=== PATIENT | male | born 1955 | race Caucasian/White ===

== ENCOUNTER → 2017-01-05 | Outpatient (CLI) | payer OTHER ==
[~2017-01-05] MED LIST: AMLO10CA PO; ASPI81TA21 PO; ATOR80TA PO; CEPH500C PO; METO100T7 PO; MULT-506 PO; SULF800T23 PO
[2017-01-05 17:10] LABS: ALT/SGPT 27 U/L (12-78); BLOOD UREA NITROGEN 15 mg/dl (7-18); BUN/CREATININE RATIO 16.5 (10-20); CALCIUM 8.9 mg/dl (8.5-10.1); CARBON DIOXIDE 26 mmol/L (21-32); CHLORIDE 103 mmol/L (98-107); CHOLESTEROL 137 mg/dl (0-200); CREATININE 0.92 mg/dl (0.60-1.40); GLUCOSE 78 mg/dl (70-99); SODIUM 137 mmol/L (136-145); TRIGLYCERIDES 90 mg/dl (0-150); VERY LOW DENSITY LIPOPROT CALC 18 mg/dl
[2017-01-05 17:14] LABS: ALB/GLOB RATIO 1.3 (0.9-2); ALKALINE PHOSPHATASE 64 U/L (45-117); AST/SGOT 21 U/L (15-37); CHOLESTEROL/HDL RATIO 2.4; HDL CHOLESTEROL 58 mg/dl; LDL CHOLESTEROL CALCULATED 61 mg/dl
== END | disposition home or self-care (01) ==
LOC: C.LAB 15:40
PROVIDERS: ATTEND Internal Medicine
DX: I10 Essential (primary) hypertension (principal)

== ENCOUNTER 2017-04-08 08:26 | Emergency (ER) | payer OTHER ==
[~2017-04-08] VITALS: Ht 182.9 cm; Wt 92.3 kg
[~2017-04-08 08:26] MED LIST changes: -CEPH500C PO; -SULF800T23 PO
[2017-04-08 08:32] VITALS: TEMP 36.7; Ht 182.9 cm; Wt 92.3 kg
--- NOTE | 2017-04-08 08:51 | EMERGENCY ROOM VISIT NOTE ---
ED Visit Note First contact with patient: 08:37 CHIEF COMPLAINT: Infection of the right groin HISTORY OF PRESENT ILLNESS: This 61-year-old male patient presents to the emergency department ambulatory after they noticed a hard, red, tender area to the right groin yesterday morning. It is slowly getting larger, more painful and tender. No fever, chills, or loss of appetite. There has been no drainage from the area. There was no injury to the area preceding the infection. They rate the pain as sore and 5/10. The patient was seen at [facility] yesterday and started on clindamycin. He was advised to come to the emergency department if it worsens. The patient is not diabetic. The patient has no history of subcutaneous abscesses. REVIEW OF SYSTEMS: A 10 system review of systems was completed with positives and pertinent negatives listed in the HPI. ALLERGIES: Flu vaccine MEDICATIONS: See nursing notes PMH: Hypertension, hyperlipidemia SOCIAL HISTORY: The patient lives locally. He does not smoke PHYSICAL EXAM: Vital Signs: Reviewed Nurse's notes, vital signs stable. GENERAL : This is 61-year-old male, no acute distress, non toxic in appearance, well- developed well-nourished. SKIN: There is an erythematous indurated area to the right proximal medial thigh which measures about 2 cm in diameter. It is fluctuant but there is no pointing or drainage. There is a zone of inflammation around it but no lymphangitis. Capillary refill less than 2 seconds. There is no testicular pain, tenderness, swelling, mass. There is no obvious hernia. MUSCULOSKELETAL: There is no limitation of the range of motion of the extremities. EMERGENCY DEPARTMENT COURSE: I examined the patient. After saline and Betadine cleansing and 4 mL of 1% buffered lidocaine anesthesia, the abscess was incised with a number 11 scalpel blade. A large amount of purulent material was released with more expressed by pressure. A swab was obtained for culture. The abscess cavity was further probed with a needle river driver and the deep pocket expressed. The abscess cavity was then copiously irrigated with sterile saline under pressure. The area was then packed with bacitracin soaked packing. The area was cleaned with sterile saline and dressed with bacitracin and a bulky bandage. The patient tolerated the procedure well. The patient was discharged home in stable condition. The patient will be switched to Bactrim and Keflex. He declined any pain medication. He should return in 48 hours for wound recheck and packing removal. Problem List Medical Problems: (1) Hemorrhoids Status: Chronic Surgical Problems: (1) H/O rhinoplasty Status: Resolved Current/Historical Medications Scheduled Amlodipine/Benazepril (Lotrel 10MG/20MG), 1 CAP PO DAILY Aspirin Enteric Coated (Ecotrin Or Generic), 81 MG PO DAILY Atorvastatin Calcium (Lipitor), 80 MG PO DAILY Cephalexin Monohydrate (Keflex), 500 MG PO QID Metoprolol Succinate (Toprol Xl), 100 MG PO BID Multivitamin (Multivitamin), 1 TAB PO DAILY Sulfa/Trimethoprim (Bactrim Ds 800MG/160MG), 1 TAB PO BID Allergies Coded Allergies: Flu Virus Vaccine (Verified Allergy, Mild, itch, 04/08/17) Vital Signs Date Time Temp Pulse Resp B/P Pulse Ox O2 Delivery O2 Flow Rate FiO2 04/08/17 09:41 70 12 148/88 97 04/08/17 08:32 36.7 77 18 148/98 98 Room Air Departure Information Impression Primary Impression: Abscess, groin Dispostion Home / Self-Care Condition GOOD Prescriptions Cephalexin Monohydrate (Keflex) 500 Mg Cap 500 MG PO QID for 7 Days, #28 CAP Prov: Freida Jansen PA-C 04/08/17 Sulfa/Trimethoprim (Bactrim Ds 800MG/160MG) Tab 1 TAB PO BID for 7 Days, #14 TAB Prov: Freida Jansen PA-C 04/08/17 Referrals Ishaan Hoffman M.D. (PCP) Patient Instructions ED Abscess [place], [facility] Additional Instructions Return in 48 hours for a wound recheck and packing removal. Remove the outer dressing if it becomes soiled or wet. Ibuprofen 600 mg every 6-8 hours for moderate pain Bactrim and Keflex as prescribed, until finished. Return sooner with any worsening redness, swelling, fevers.
[2017-04-08] MEDS ORDERED: XYLOCAINE 1%/SOD BICARB 20 ML VIAL INFIL ONE (09:00)
[2017-04-08] MEDS ORDERED: CEPH500C PO (09:19)
[2017-04-08] MEDS ORDERED: SULF800T23 PO (09:19)
[2017-04-08 09:41] VITALS: BP 148/88; PULSE 70; O2SAT 97
== END 2017-04-08 09:43 | disposition home or self-care (01) ==
LOC: C.EDB 08:28
DX: L02.214 Cutaneous abscess of groin (principal); I10 Essential (primary) hypertension; E78.5 Hyperlipidemia, unspecified; Z79.82 Long term (current) use of aspirin; Z79.899 Other long term (current) drug therapy

== ENCOUNTER 2017-04-10 08:12 | Emergency (ER) | payer OTHER ==
[~2017-04-10] VITALS: Ht 182.9 cm; Wt 90.4 kg
[~2017-04-10 08:12] MED LIST changes: +CEPH500C PO; +SULF800T23 PO
[2017-04-10 08:15] VITALS: PULSE 71; TEMP 36.8; O2SAT 96; Ht 182.9 cm; Wt 90.4 kg
--- NOTE | 2017-04-10 08:34 | EMERGENCY ROOM VISIT NOTE ---
ED Visit Note First contact with patient: 08:18 CHIEF COMPLAINT: Wound check HISTORY OF PRESENT ILLNESS: This 61-year-old male patient presents to the emergency department ambulatory for a recheck of incision and drainage of the right groin from 2 days ago. The patient has not had complaints. Previous care outlined has been followed without difficulty. The patient described their pain as mild, 3/10, and is located within the wound. REVIEW OF SYSTEMS: A 6 system review of systems was completed with positives and pertinent negatives listed in the HPI. ALLERGIES: Flu virus vaccine MEDICATIONS: Unchanged from previous PMH: Unchanged from previous visit. PHYSICAL EXAM: Vital Signs reviewed, see Nurse's notes. Patient is afebrile, vital signs stable. GENERAL: This is a 61-year-old male, awake, alert, well appearing, no acute distress SKIN: There is a packed, incised and drained wound to the right groin. There is minimal surrounding cellulitis which has improved. There is mild induration at the area of abscess. There is no involvement of the scrotum. NEURO: No sensory or motor deficits noted. EMERGENCY DEPARTMENT COURSE AND DECISION MAKING: I examined the patient. Previous visits, nursing notes and medication list reviewed. The packing was easily removed. There is no more purulent drainage but there is some induration and improving surrounding erythema. The patient was advised to try to keep the wound open for the next 2 days. He should continue the antibiotics until finished. He should return with any worsening redness, swelling, warmth, fevers. Problem List Medical Problems: (1) Hemorrhoids Status: Chronic Surgical Problems: (1) H/O rhinoplasty Status: Resolved Current/Historical Medications Scheduled Amlodipine/Benazepril (Lotrel 10MG/20MG), 1 CAP PO DAILY Aspirin Enteric Coated (Ecotrin Or Generic), 81 MG PO DAILY Atorvastatin Calcium (Lipitor), 80 MG PO DAILY Cephalexin Monohydrate (Keflex), 500 MG PO QID Metoprolol Succinate (Toprol Xl), 100 MG PO BID Multivitamin (Multivitamin), 1 TAB PO DAILY Sulfa/Trimethoprim (Bactrim Ds 800MG/160MG), 1 TAB PO BID Allergies Coded Allergies: Flu Virus Vaccine (Verified Allergy, Mild, itch, 04/10/17) Vital Signs Date Time Temp Pulse Resp B/P Pulse Ox O2 Delivery O2 Flow Rate FiO2 04/10/17 08:15 36.8 71 16 96 Room Air Departure Information Impression Primary Impression: Abscess packing removal Dispostion Home / Self-Care Condition GOOD Referrals Ishaan Hoffman M.D. (PCP) Patient Instructions [facility] Additional Instructions Continue the antibiotics as prescribed, until finished Try to keep the wound open for the next 48 hours Return with any fevers, worsening redness, swelling, warmth Otherwise, recheck with your family doctor next week if no significant improvement
== END 2017-04-10 08:39 | disposition home or self-care (01) ==
LOC: C.EDB 08:14
DX: Z48.00 Encounter for change or removal of nonsurgical wound dressing (principal); L02.214 Cutaneous abscess of groin; K64.9 Unspecified hemorrhoids; Z79.82 Long term (current) use of aspirin

== ENCOUNTER → 2017-10-02 | Outpatient (CLI) | payer OTHER ==
[~2017-10-02] MED LIST changes: -CEPH500C PO; -SULF800T23 PO
--- NOTE | 2017-10-02 10:21 | DIAGNOSTIC IMAGING REPORT ---
ABDOMINAL AORTIC ULTRASOUND CLINICAL HISTORY: Z98.890 History of AAA (abdominal aortic aneurysm) [id number] COMPARISON STUDY: Abdomen and pelvis CT 04/19/2012. FINDINGS: The proximal aorta measures 3.5 x 3.4 cm, mid aorta measures 3.1 x 2.9 cm, distal aorta measures 2.2 x 2.2 cm. The right common iliac artery measures 1.6 cm and the left common iliac artery measures 1.9 x 1.8 cm. IMPRESSION: Mild aneurysmal dilatation of the proximal to mid abdominal aorta and left common iliac artery as described above. Electronically signed by: Russ Delgado M.D. 10/02/2017 10:20 AM Dictated Date/Time: 10/02/2017 10:18 AM
== END | disposition home or self-care (01) ==
LOC: C.ULTR 09:09
PROVIDERS: ATTEND Internal Medicine
DX: Z98.890 Other specified postprocedural states (principal)

== ENCOUNTER → 2018-03-26 | Outpatient (CLI) | payer OTHER ==
[~2018-03-26] MED LIST changes: +ASPI-319 PO; -ASPI81TA21 PO
[2018-03-26 09:41] LABS: BASO % 0.5 %; BASO ABS # 0.06 K/uL (0-0.2); EOS % 1.3 %; EOS ABS # 0.15 K/uL (0-0.5); HEMATOCRIT 43.9 % (42-52); HEMOGLOBIN 14.6 g/dL (14.0-18.0); IG# 0.13 K/uL (0.00-0.02); LYMPH % 12.1 %; LYMPH ABS # 1.39 K/uL (1.2-3.4); MEAN CELL VOLUME 95.6 fL (80-100); MEAN CORPUSCULAR HEMOGLOBIN 31.8 pg (25-34); MEAN CORPUSCULAR HGB CONC 33.3 g/dl (32-36); MEAN PLATELET VOLUME 10.2 fL (7.4-10.4); MONO % 10.9 %; MONO ABS # 1.25 K/uL (0.11-0.59); NEUT % 74.1 %; PLATELET COUNT 361 K/uL (130-400); RED CELL DISTRIBUTION WIDTH CV 14.7 % (11.5-14.5); RED CELL DISTRIBUTION WIDTH SD 51.3 fL (36.4-46.3); WHITE BLOOD COUNT 11.48 K/uL (4.8-10.8)
[2018-03-26 10:03] LABS: ALBUMIN 3.7 gm/dl (3.4-5.0); ALT/SGPT 38 U/L (12-78); AST/SGOT 24 U/L (15-37); BLOOD UREA NITROGEN 14 mg/dl (7-18); CALCIUM 8.7 mg/dl (8.5-10.1); CARBON DIOXIDE 26 mmol/L (21-32); CREATININE 0.89 mg/dl (0.60-1.40); GLUCOSE 107 mg/dl (70-99); POTASSIUM 4.2 mmol/L (3.5-5.1); SODIUM 138 mmol/L (136-145)
[2018-03-26 10:11] LABS: ALKALINE PHOSPHATASE 75 U/L (45-117); CHOLESTEROL 147 mg/dl (0-200); LDL CHOLESTEROL CALCULATED 67 mg/dl; TOTAL PROTEIN 7.5 gm/dl (6.4-8.2)
== END | disposition home or self-care (01) ==
LOC: C.LAB 07:17
PROVIDERS: ATTEND Internal Medicine
DX: I49.5 Sick sinus syndrome (principal); I10 Essential (primary) hypertension; E78.5 Hyperlipidemia, unspecified; Z86.79 Personal history of other diseases of the circulatory system; I25.10 Atherosclerotic heart disease of native coronary artery without angina pectoris; Z95.0 Presence of cardiac pacemaker

== ENCOUNTER 2025-01-03 09:27 | Observation (INO) ==
--- NOTE | 2025-01-03 10:08 | Emergency Department Note ---
History of Present Illness General Chief Complaint: Shortness of Breath/Dyspnea Stated Complaint: SOB/TROUBLE BREATHING Time Seen by Provider: 01/03/25 09:50 History of Present Illness Provider Complaint: shortness of breath Onset (ago): day(s) (2) Consistency/Duration: + progressively worsening Relieved By: + nothing Exacerbated By: + coughing Associated symptoms: + cough and + sputum production; no chest pain, no fever, no hemoptysis or no chest congestion Home Medications Medication Instructions Recorded Confirmed Type metoprolol succinate 100 mg 100 mg PO BID #180 tabs 12/29/23 01/03/25 Rx tablet,extended release 24 hr nitroglycerin 0.4 mg sublingual 0.4 mg sublingual UD PRN Chest 06/26/24 01/03/25 Rx tablet (Nitrostat) Pain #25 tabs amlodipine 10 mg-benazepril 40 mg 1 cap PO QAM 01/03/25 01/03/25 History capsule aspirin 81 mg tablet,delayed 81 mg PO HS 01/03/25 01/03/25 History release Allergies Allergy/AdvReac Type Severity Reaction Status Date / Time No Known Allergies Allergy Verified 01/03/25 08:53 Past Med/Surg History Problem List (Updated 01/03/25 @ 14:54 by Hammad Kiran MD) Post-viral reactive airway disease Alcohol use disorder Primary myelofibrosis Hyponatremia Vitamin D deficiency Hypertension Proteinuria Parakeratosis (Chronic) Left renal artery stenosis (Acute) Former smoker (Acute) 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 Hyperlipidemia (Chronic) HTN (hypertension) (Chronic) GERD (gastroesophageal reflux disease) (Acute) Medical History Rectal bleeding Bailey esophagus Hypertension Surgical History History of cataract surgery LEFT History of colonoscopy History of esophagogastroduodenoscopy (EGD) History of AAA (abdominal aortic aneurysm) repair History of surgery LEFT HAND REATTACHED AFTER TRAUMA (30+YEARS AGO). PT HAS SOME NUMBNESS AND TINGLING BUT HAS FULL FUNCTION. History of surgery REPAIR OF DEVIATED SEPTUM History of herniorrhaphy MULTIPLE, INCLUDING UMBILICAL History of cardiac cath ANGIOPLASTY X2, STENT PLACEMENT (20 YEARS AGO) Family History Father Diabetes Myocardial infarction Hypertension Mother Diabetes Hypertension Gall bladder disease Other No family history of adverse response to anesthesia Denies family history of Ovarian cancer Prostate cancer Breast cancer Lung cancer Colorectal cancer Social History Smoking Status: Never smoker Tobacco Type: Cigarettes Age Started Using Tobacco: 16; Age Quit Using Tobacco: 46; packs per day: 1; Cigarettes Per Day: quit 15 years; Second Hand Exposure: No; Do You Dip or Chew Tobacco: No; Hx Alcohol Use: Yes (4 mixed drinks daily ) Alcohol type: beer and hard liquor Hx Substance Use: Yes (smokes marijuana intermittently) Last Used Substance Other:: SMOKES MARIJUANA INTERMITTENLTY Preferred Language: Russian Communication Ability: Effective Visual Impairment: Limited Hearing Ability: Normal Information Technology Analyst Required: No Beliefs That Will Affect Care: None marital status: Current Living Situation: Spouse current occupational status: retired Feels Safe at Home: Yes Childhood Exposure to Second-Hand Smoke: No caffeine: Yes Dental Care, Regularly: No Physical Activity Frequency: Does not Exercise Seatbelt Use: always Sunscreen Use: No Assistive Devices: Denture - Upper and Glasses Physical Exam 2 Vital Signs: Vital Signs - 24 hr 01/03/25 09:41 01/03/25 10:20 01/03/25 10:24 Temperature 36.9 C Temperature Source Temporal Artery Sc an Pulse Rate 99 H 92 H Pulse Rate [Apical ] Respiratory Rate 18 19 Respiratory Effort / Characteristics Non-Labored Respiratory Depth Normal Respiratory Patter n Regular Blood Pressure 146/100 H 124/79 Blood Pressure [Le ft Arm] Blood Pressure Erica n 115 103 Blood Pressure Erica n [Left Arm] Blood Pressure Pos ition [Left Arm] Pulse Oximetry 95 93 Oxygen Delivery Me thod Room Air Sepsis Recent Feve r Within 48 Hours No Sepsis New/Unexpla ined Change in Men zeferino Status N/A Sepsis Action Take n by Nursing No Action Required Pulse Oximetry Pos t Tiitration 01/03/25 10:25 01/03/25 10:27 01/03/25 10:27 Temperature Temperature Source Pulse Rate 88 Pulse Rate [Apical ] 90 Respiratory Rate 18 Respiratory Effort / Characteristics Respiratory Depth Respiratory Patter n Blood Pressure Blood Pressure [Le ft Arm] 124/79 Blood Pressure Erica n Blood Pressure Erica n [Left Arm] 94 Blood Pressure Pos ition [Left Arm] Pulse Oximetry 94 Oxygen Delivery Me thod Room Air Room Air Sepsis Recent Feve r Within 48 Hours Sepsis New/Unexpla ined Change in Men zeferino Status Sepsis Action Take n by Nursing Pulse Oximetry Pos t Tiitration 94 01/03/25 10:27 01/03/25 10:36 01/03/25 12:00 Temperature Temperature Source Pulse Rate 91 H Pulse Rate [Apical ] 87 Respiratory Rate 16 24 Respiratory Effort / Characteristics Non-Labored Sponta neous Respiratory Depth Normal Respiratory Patter n Regular Blood Pressure Blood Pressure [Le ft Arm] 133/94 Blood Pressure Erica n Blood Pressure Erica n [Left Arm] 107 Blood Pressure Pos ition [Left Arm] Sitting Pulse Oximetry 94 95 96 Oxygen Delivery Me thod Room Air Room Air Sepsis Recent Feve r Within 48 Hours Sepsis New/Unexpla ined Change in Men zeferino Status Sepsis Action Take n by Nursing Pulse Oximetry Pos t Tiitration 01/03/25 14:00 01/03/25 14:38 Temperature Temperature Source Pulse Rate 96 H Pulse Rate [Apical ] 90 Respiratory Rate 19 Respiratory Effort / Characteristics Non-Labored Sponta neous Respiratory Depth Normal Respiratory Patter n Regular Blood Pressure Blood Pressure [Le ft Arm] 128/88 Blood Pressure Erica n Blood Pressure Erica n [Left Arm] 101 Blood Pressure Pos ition [Left Arm] Semi-fowlers Pulse Oximetry 94 Oxygen Delivery Me thod Room Air Sepsis Recent Feve r Within 48 Hours Sepsis New/Unexpla ined Change in Men zefernio Status Sepsis Action Take n by Nursing Pulse Oximetry Pos t Tiitration Physical Exam: Physical Exam GENERAL: oriented to person, place, and time. appears well-developed and well- nourished. HENT: Exam performed. - Head: Normocephalic and atraumatic. EYES: Conjunctivae and EOM are normal. Right eye exhibits no discharge. Left eye exhibits no discharge. No scleral icterus. NECK: Normal range of motion. Neck supple. No JVD present. CV: Normal rate, regular rhythm, normal heart sounds and intact distal pulses. There is no peripheral edema. Palpable radial pulses bue. PULM/CHEST: Scant expiratory wheezes bilaterally. ABD: The abdomen is soft. There is no tenderness. NEURO: Motor and sensation grossly intact. SKIN: Skin is warm and dry. He is not diaphoretic. PSYCH: normal mood and affect. Behavior is normal. Judgment and thought content normal. Course Course 09: The patient was evaluated in room B12. A complete history and physical exam was performed Cardiac monitoring: An order was placed for continuous cardiac monitoring. The monitor shows a rate of 100 with sinus rhythm interpreted by oh 1120: Patient's D-dimer is elevated. CT of the chest ordered for the patient. 1230: Vital signs stable.Labs show white blood cell count of 7.1 hemoglobin 11.5 VBG unremarkable. High sensitive troponin 39.[address] of the chest negative for PE and pneumonia but does show mild CHF. Patient be treated with Lasix and admitted to the hospitalist team. Administered Medications Discontinued Medications Albuterol (Albut/Ipratrop 3mg/0.5mg Neb 3 Ml Vial) 3 ml NEB NOW STA; Protocol Stop: 01/03/25 09:58 Last Admin: 01/03/25 10:25 Dose: 3 ml Documented By: ML Ioversol (Optiray 320 125ml) 112 ml IV ONCE ONE Stop: 01/03/25 11:29 Last Admin: 01/03/25 11:28 Dose: 112 ml Documented By: HILLARY Medical Decision Making Laboratory Data Attestation: I reviewed the patient's lab results. 01/03/25 10:20 01/03/25 10:20 Lab Results 01/03/25 01/03/25 01/03/25 Range/Units 10:20 10:34 13:06 WBC 7.10 (4.8-10.8) K/ul RBC 3.53 L (4.70-6.10) M/uL Hgb 11.5 L (14.0-18.0) g/dl Hct 35.5 L (42.0-52.0) % MCV 100.6 H (80.0-100.0) fL MCH 32.6 (25.0-34.0) pg MCHC 32.4 (32.0-36.0) g/dL RDW Std Deviation 73.5 H (36.4-46.3) fL RDW Coeff of Dominique 20.5 H (11.5-14.5) % Plt Count 142 (130-400) K/uL MPV 11.3 (9.4-12.4) fL Neutrophils % (Manual) 71 % Lymphocytes % (Manual) 8 % Monocytes % (Manual) 9 % Eosinophils % (Manual) 3 % Basophils % (Manual) 2 % Metamyelocytes % (Man) 1 % Myelocytes % (Man) 3 % Promyelocytes % (Man) 1 % Blast Cells % (Manual) 2 % Neutrophils # (Manual) 5.04 (1.40-6.50) K/uL Total Absolute Neuts 5.04 (1.4-6.5) K/uL Lymphocytes # (Manual) 0.57 L (1.2-3.4) K/uL Total Abs Lymphocytes 0.57 L (1.2-3.4) K/uL Monocytes # (Manual) 0.64 H (0.11-0.59) K/uL Eosinophils # (Manual) 0.21 (0-0.50) K/uL Basophils # (Manual) 0.14 (0-0.2) K/uL Metamyelocytes # (Man) 0.07 H (0-0) K/uL Myelocytes # (Manual) 0.21 H (0-0) K/uL Promyelocytes # (Man) 0.07 H (0-0) K/uL Blast Cells # (Man) 0.14 H (0-0) K/uL PT 11.1 (9.0-12.0) Seconds INR 1.0 (0.9-1.1) APTT 31 (21-31) Seconds PTT Ratio 1.2 D-Dimer 680 H* (0-500) ug/L FEU VBG pH 7.39 (7.36-7.41) VBG pCO2 43 (38-50) mmHg VBG pO2 28 mmHg VBG HCO3 26 mmol/L VBG O2 Saturation < 60.0 % VBG Base Excess 0.8 mEq/L Sodium 134 L (136-145) mmol/L Potassium 4.1 (3.5-5.1) mmol/L Chloride 98 (98-107) mmol/L Carbon Dioxide 28 (21-32) mmol/L Anion Gap 8 (3-11) BUN 13 (6-23) mg/dl Creatinine 0.75 (0.6-1.4) mg/dl Est Cr Clr Drug Dosing 97.6 ml/min eGFR 97.08 BUN/Creatinine Ratio 17.3 (10-20) Glucose 106 H (70-99(Fasting)) mg/dl Calcium 9.1 (8.6-10.3) mg/dl Troponin I High Sens 39.7 H 44.6 H (0-20) pg/ml B-Natriuretic Peptide 724 H (0-100) pg/ml Lipase 25 (11-82) U/L SARS-CoV-2 (PCR) NEGATIVE (Negative) Influenza Type A (PCR) Negative (Neg) Influenza Type B (PCR) Negative (Neg) RSV (RT-PCR) Negative (Neg) Imaging Data Attestation: I personally reviewed and interpreted this imaging study as follows: My Impression: Chest x-ray negative. Airway clear. No pneumothorax. No consolidation. No cardiomegaly or cephalization.. No free air under the diaphragm. No fractures of the skeletal structures. Radiologist's Impression: Chest X-Ray 01/03/25 09:58 XR chest 1V portable CLINICAL HISTORY: Chest pain, nonspecific. Cough. COMPARISON STUDY: Chest radiograph December 25, 2024. FINDINGS: Left subclavian pacer is in place. Cardiomegaly is unchanged. There is no evidence for pulmonary edema or pneumonia. There is no pneumothorax or pleural effusion. IMPRESSION: No acute cardiopulmonary findings. No change in appearance of the chest. ACT 112: Negative or not required by law. Electronically signed by: Kam Barry M.D. 01/03/2025 10:32 AM Chest CTA 01/03/25 11:20 CT angio chest PE protocol CT DOSE: 798.95 mGy.cm HISTORY: Shortness of breath with a recent flu exposure. Denies chest pain. History of leukemia awaiting chemotherapy TECHNIQUE: Multiple CTA images of the chest were obtained after the intravenous administration of 112 ml Optiray. Coronal and sagittal MIPS were obtained from the axial data set and were submitted for review. All measurements were obtained according to NASCET criteria. A dose lowering technique was utilized adhering to the principles of ALARA. COMPARISON STUDY: Portable chest same date FINDINGS: There is no evidence of acute pulmonary embolism. The heart is enlarged. There are pronounced coronary artery calcifications. There is some mild pulmonary vascular congestion with some dependent pulmonary edema in the upper and lower lobes raising the question of mild CHF. The aorta demonstrates atherosclerotic plaque and ectasia. There is no significant adenopathy. There is no pneumothorax. There is no pleural effusion. In the upper abdomen, there are hepatic and renal cysts. The spleen is enlarged. There are small lipid rich adrenal adenomas bilaterally. IMPRESSION: No evidence of pulmonary embolism. Suspect mild CHF. No evidence of pneumonia. Hepatic and renal cysts. Splenomegaly. ACT 112: Negative or not required by law. The above report was generated using voice recognition software. It may contain grammatical, syntax or spelling errors. Electronically signed by: Sharon Raphael M.D. 01/03/2025 12:13 PM ECG Data Attestation: I personally reviewed and interpreted this ECG as follows: Interpretation: Sinus arrhythmia with a rate of 81. [place] 110 QRS [address] elevation or ST depression. No delta wave. right bundle branch block present. [facility] Narrative 0950: The patient was evaluated in room B12. A complete history and physical exam was performed Cardiac monitoring: An order was placed for continuous cardiac monitoring. The monitor shows a rate of 100 with sinus rhythm interpreted by me 1120: Patient's D-dimer is elevated. CT of the chest ordered for the patient. 1230: Vital signs stable.Labs show white blood cell count of 7.1 hemoglobin 11.5 VBG unremarkable. High sensitive troponin 39.[address] of the chest negative for PE and pneumonia but does show mild CHF. Patient be treated with Lasix and admitted to the hospitalist team. Impression & Plan Congestive heart failure Discharge Plan Visit Data Chief Complaint: Shortness of Breath/Dyspnea Stated Complaint: SOB/TROUBLE BREATHING ED Provider: Nirmal Parkinson Discharge Problem: Congestive heart failure Patient Disposition: Admitted As Inpatient Forms Stand Alone Forms: My [employer] Prescriptions Prescriptions: No Action metoprolol succinate 100 mg tablet extended release 24 hr 100 mg PO BID Qty: 180 3RF nitroglycerin [Nitrostat] 0.4 mg tablet, sublingual 0.4 mg Sublingual UD PRN (Reason: Chest Pain) Qty: 25 3RF aspirin 81 mg Tablet,Delayed Release (Dr/Ec) 81 mg PO HS amlodipine-benazepril 10-40 mg capsule 1 cap PO QAM Referrals Referrals: Sarika Lin DO [Primary Care Provider] -
[2025-01-03] MEDS: ALBUT/IPRATROP 3MG/0.5MG NEB 3 ML VIAL NEB STA (10:25)
[2025-01-03 10:33] LABS: Base Excess VBG 0.8 mEq/L; HCO3 VBG 26 mmol/L; Oxygen Saturation VBG < 60.0 %; PCO2 VBG 43 mmHg (38-50); PO2 VBG 28 mmHg; pH VBG 7.39 (7.36-7.41)
--- NOTE | 2025-01-03 10:34 | XRay Report ---
XR chest 1V portable CLINICAL HISTORY: Chest pain, nonspecific. Cough. COMPARISON STUDY: Chest radiograph December 25, 2024. FINDINGS: Left subclavian pacer is in place. Cardiomegaly is unchanged. There is no evidence for pulm onary edema or pneumonia. There is no pneumothorax or pleural effusion. IMPRESSION: No acute cardiopulmonary findings. No change in appearance of the chest. ACT 112: Negative or not required by law. Electronically signed by: Kam Barry M.D. 01/03/2025 10:32 AM
[2025-01-03 11:05] LABS: BUN Creatinine Ratio 17.3 (10-20); Calcium 9.1 mg/dl (8.6-10.3); Creatinine Clr Calc Pharmacy 97.6 ml/min; Potassium 4.1 mmol/L (3.5-5.1)
[2025-01-03 11:06] LABS: Hematocrit (blood only) 35.5 % (42.0-52.0); Hemoglobin 11.5 g/dl (14.0-18.0); Mean Corpuscular Hemoglobin 32.6 pg (25.0-34.0); Mean Corpuscular Hgb Conc 32.4 g/dL (32.0-36.0); Mean Corpuscular Volume 100.6 fL (80.0-100.0); Mean Platelet Volume 11.3 fL (9.4-12.4); Platelet Count 142 K/uL (130-400); RDW Coefficient of Variation 20.5 % (11.5-14.5); RDW Standard Deviation 73.5 fL (36.4-46.3); Red Blood Count 3.53 M/uL (4.70-6.10)
[2025-01-03 11:11] LABS: Troponin I High Sensitivity 39.7 pg/ml (0-20)
[2025-01-03 11:16] LABS: Partial Thromboplastin Ratio 1.2; Partial Thromboplastin Time 31 Seconds (21-31); Prothrombin Time 11.1 Seconds (9.0-12.0)
[2025-01-03 11:20] LABS: D Dimer 680 ug/L FEU (0-500)
[2025-01-03 11:27] LABS: Influenza A virus by PCR Negative (Neg); Influenza B virus by PCR Negative (Neg); RSV by PCR Negative (Neg); SARS CoV2 RNA(COVID-19) Ceph NEGATIVE (Negative)
[2025-01-03] MEDS: OPTIRAY 320 125ml IV ONE (11:28)
[2025-01-03 12:11] LABS: ALC (manual) 0.57 K/uL (1.2-3.4); ANC (manual) 5.04 K/uL (1.4-6.5); Basophils # (manual) 0.14 K/uL (0-0.2); Basophils % (manual) 2 %; Blast # (manual) 0.14 K/uL (0-0); Blast Cells % (manual) 2 %; Eosinophils # (manual) 0.21 K/uL (0-0.50); Eosinophils % (manual) 3 %; Lymphocytes # (manual) 0.57 K/uL (1.2-3.4); Lymphocytes % (manual) 8 %; Metamyelocytes # (manual) 0.07 K/uL (0-0); Metamyelocytes % (manual) 1 %; Monocytes # (manual) 0.64 K/uL (0.11-0.59); Monocytes % (manual) 9 %; Myelocytes # (manual) 0.21 K/uL (0-0); Myelocytes % (manual) 3 %; Neutrophils # (manual) 5.04 K/uL (1.40-6.50); Neutrophils % (manual) 71 %; Promyelocytes # (manual) 0.07 K/uL (0-0); Promyelocytes % (manual) 1 %
--- NOTE | 2025-01-03 12:15 | CT Scan Report ---
CT angio chest PE protocol CT DOSE: 798.95 mGy.cm HISTORY: Shortness of breath with a recent flu exposure. Denies chest pain. History of leukemia await ing chemotherapy TECHNIQUE: Multiple CTA images of the chest were obtained after the intravenous administration of 112 ml Optiray. Coronal and sagittal MIPS were obtained from the axial data set and were submitted for review. All measurements were obtained according to NASCET criteria. A dose lowering technique was u tilized adhering to the principles of ALARA. COMPARISON STUDY: Portable chest same date FINDINGS: There is no evidence of acute pulmonary embolism. The heart is enlarged. There are pronounc ed coronary artery calcifications. There is some mild pulmonary vascular congestion with some depende nt pulmonary edema in the upper and lower lobes raising the question of mild CHF. The aorta demonstrates atherosclerotic plaque and ectasia. There is no significant adenopathy. There is no pneumothorax. There is no pleural effusion. In the upper abdomen, there are hepatic and renal cysts. The spleen is enlarged. There are small lipi d rich adrenal adenomas bilaterally. IMPRESSION: No evidence of pulmonary embolism. Suspect mild CHF. No evidence of pneumonia. Hepatic and renal cysts. Splenomegaly. ACT 112: Negative or not required by law. The above report was generated using voice recognition software. It may contain grammatical, syntax o r spelling errors. Electronically signed by: Sharon Raphael M.D. 01/03/2025 12:13 PM
--- NOTE | 2025-01-03 12:46 | Electrocardiogram Report ---
Test Reason : Blood Pressure : */* mmHG Vent. Rate : 81 BPM Atrial Rate : 81 BPM P-R Int : 110 ms QRS Dur : 120 ms QT Int : 456 ms P-R-T Axes : -14 -71 2 degrees QTcB Int : 529 ms Sinus rhythm with short VT with Premature supraventricular complexes Left axis deviation Right bundle branch block Minimal voltage criteria for LVH, may be normal variant Poor R wave progression, consider anterior PA vs. lead placement vs. LVH T wave abnormality, consider lateral ischemia Abnormal ECG When compared with ECG of 26-Jan-2016 13:56, Premature supraventricular complexes are now Present VT interval has decreased Right bundle branch block is now Present Borderline criteria for Anterior infarct are now Present Confirmed by Sourav Sy ([id number]) on 01/03/2025 12:45:47 PM Referred By: Confirmed By: Sourav Sy
--- NOTE | 2025-01-03 14:55 | History & Physical Report ---
Date of Service January 03, 2025 Assessment & Plan (1) Post-viral reactive airway disease: Plan: Suspect cause of his acute symptoms rather than congestive heart failure given improvement with DuoNeb in the emergency room. Continue DuoNebs q.6 hourly Consider outpatient pulmonary function testing (2) Acute heart failure with mildly reduced ejection fraction (HFmrEF, 41-49%): Plan: Pulmonary edema on CT, estimated mildly reduced ejection fraction on POCUS Known history of coronary artery disease (see below) I have a low suspicion this is causing his symptoms given significant improvement with DuoNebs TTE - consult cardiology if confirmed to be less than 50% Lasix 20 mg IV (significant diuresis in the emergency room with this), continue 20 mg p.o. starting tomorrow Already taking metoprolol succinate and Benazepril Trace urine protein from December 25, no need to repeat this (3) Apneic episode: Plan: Possibly exacerbated by alcohol use, Pulse oximetry arranged overnight but he still should get sleep study as arranged through his PCP. Avoid sedating medications and alcohol (4) CAD (coronary artery disease): Plan: Per previous cardiology notes he had a cardiac catheterization 1998 revealing a 100% RCA occlusion with well-developed collaterals and tight stenosis of the obtuse marginal branch of the left circumflex underwent successful PCI. Repeat catheterization 2005 revealed a patent stent with no new abnormalities. Continue aspirin, metoprolol, Benazepril Per prior cardiology notes he was previously on atorvastatin, I am not clear why this is no longer on his medication list but has not been picked up in the last year (5) Alcohol use disorder: Plan: Unlikely to get through alcohol withdrawal with his last drink greater than 48 hours ago. AWSS to be fall needs to inform provider if greater than 5 to determine if the patient needs benzodiazepines but given concern for nocturnal apneic episodes we will try to avoid this if at all possible. Plan VTE prophylaxis - low risk, reconsider chemical prophylaxis if he stays longer than tomorrow Diet - heart healthy, low-sodium Disposition - observation to med/tele Admission and Anticipated Discharge Date Admission Date: January 03, 2025 History of Present Illness Chief Complaint: Shortness of breath Primary Care Provider: Sarika Lin DO Edradha Rutledge is a 69-year-old male who presents to the ER on advice of his twx operator due to shortness of breath. He reports chronic shortness of breath which she puts down to his primary myelofibrosis. This has been worse the last 2 days with associated nasal congestion and nonproductive cough. He feels he picked up a viral infection. Significant improvement with DuoNeb given in the emergency room. No known diagnosis of COPD or asthma. No chest pain. He is also concerned about sleep apnea and testing has been arranged by his PCP. He reports waking up during the nighttime with a feeling of stopping breathing. Allergies Allergy/AdvReac Type Severity Reaction Status Date / Time No Known Allergies Allergy Verified 01/03/25 08:53 Home Medications Medication Instructions Recorded Confirmed Type metoprolol succinate 100 mg 100 mg PO BID #180 tabs 12/29/23 01/03/25 Rx tablet,extended release 24 hr nitroglycerin 0.4 mg sublingual 0.4 mg sublingual UD PRN Chest 06/26/24 01/03/25 Rx tablet (Nitrostat) Pain #25 tabs amlodipine 10 mg-benazepril 40 mg 1 cap PO QAM 01/03/25 01/03/25 History capsule aspirin 81 mg tablet,delayed 81 mg PO HS 01/03/25 01/03/25 History release Past Med/Surg History Problem List (Updated 01/03/25 @ 23:46 by Hammad Kiran MD) Apneic episode Acute heart failure with mildly reduced ejection fraction (HFmrEF, 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 Alcohol use disorder Primary myelofibrosis Hyponatremia Vitamin D deficiency Hypertension Proteinuria Parakeratosis (Chronic) Left renal artery stenosis (Acute) Former smoker (Acute) 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 (Acute) Pacemaker Incisional hernia Sick sinus syndrome (Chronic 2005) Meditronic Dual chamber pacemaker placed 01/02/2006 Abdominal aortic aneurysm S/P REPAIR 12 YEARS PRIOR, [facility] CAD (coronary artery disease) (Chronic 1998) Cardiac Catheterization revealed 100% RCA occlusion with well developed collaterals with stenosis of obtuse marginal and left circumflex with stent placement. Hyperlipidemia (Chronic) HTN (hypertension) (Chronic) GERD (gastroesophageal reflux disease) (Acute) Medical History Rectal bleeding Bailey esophagus Hypertension Surgical History History of cataract surgery LEFT History of colonoscopy History of esophagogastroduodenoscopy (EGD) History of AAA (abdominal aortic aneurysm) repair History of surgery LEFT HAND REATTACHED AFTER TRAUMA (30+YEARS AGO). PT HAS SOME NUMBNESS AND TINGLING BUT HAS FULL FUNCTION. History of surgery REPAIR OF DEVIATED SEPTUM History of herniorrhaphy MULTIPLE, INCLUDING UMBILICAL History of cardiac cath ANGIOPLASTY X2, STENT PLACEMENT (20 YEARS AGO) Family History Father Diabetes Myocardial infarction Hypertension Mother Diabetes Hypertension Gall bladder disease Other No family history of adverse response to anesthesia Denies family history of Ovarian cancer Prostate cancer Breast cancer Lung cancer Colorectal cancer Social History Smoking Status: Never smoker Tobacco Type: Cigarettes Age Started Using Tobacco: 16; Age Quit Using Tobacco: 46; packs per day: 1; Cigarettes Per Day: quit 15 years; Second Hand Exposure: No; Do You Dip or Chew Tobacco: No; Hx Alcohol Use: Yes Alcohol type: hard liquor Hx Substance Use: Yes Last Used Substance: Days (ago) Last Used Substance Other:: 5 days ago Preferred Language: Uzbek Communication Ability: Effective Visual Impairment: Limited Hearing Ability: Normal Sheet Manager Required: No Beliefs That Will Affect Care: None marital status: Current Living Situation: Spouse current occupational status: retired Feels Safe at Home: Yes Safety Concerns: Feels Safe At This Time Childhood Exposure to Second-Hand Smoke: No caffeine: Yes Dental Care, Regularly: No Physical Activity Frequency: Does not Exercise Seatbelt Use: always Sunscreen Use: No Assistive Devices: None Review of Systems Review of Systems: All systems reviewed & are unremarkable except as noted in HPI & below Physical Exam Constitutional: WD/WN, vitals as above ENMT: external ear and nose normal, oropharynx normal Respiratory: normal respiratory effort; no respiratory distress Auscultation: + wheezes (Mild expiratory); breath sounds present, no diminished lung sounds, no crackles, no rales and no rhonchi Cardiovascular: Rate/Rhythm: regular rate and regular rhythm Heart Sounds: no murmur Extremities: normal capillary refill and + pedal edema; no calf tenderness Gastrointestinal (Abdomen): normal bowel sounds, soft, nontender, no hepatosplenomegaly Skin: no rashes, warm and dry Neurologic: moves all extremities and awake; not confused Psychiatric: A+Ox3, euthymic affect Results & Data Results & Data Vital Signs (Past 12 Hours) Vital Signs Temp Pulse Pulse Resp BP BP Pulse Ox 01/03/25 14:38 96 H 01/03/25 14:00 90 19 128/88 94 01/03/25 12:00 87 24 133/94 96 01/03/25 10:36 91 H 16 95 01/03/25 10:27 94 01/03/25 10:27 90 18 124/79 94 01/03/25 10:27 01/03/25 10:25 88 01/03/25 10:24 92 H 19 93 01/03/25 10:20 124/79 01/03/25 09:41 36.9 C 99 H 18 146/100 H 95 O2 Del Method 01/03/25 14:38 01/03/25 14:00 Room Air 01/03/25 12:00 Room Air 01/03/25 10:36 01/03/25 10:27 Room Air 01/03/25 10:27 Room Air 01/03/25 10:27 Room Air 01/03/25 10:25 01/03/25 10:24 01/03/25 10:20 01/03/25 09:41 Room Air Laboratory Results Abnormal lab results 01/03/25 01/03/25 Range/Units 10:20 13:06 RBC 3.53 L (4.70-6.10) M/uL Hgb 11.5 L (14.0-18.0) g/dl Hct 35.5 L (42.0-52.0) % MCV 100.6 H (80.0-100.0) fL RDW Std Deviation 73.5 H (36.4-46.3) fL RDW Coeff of Dominique 20.5 H (11.5-14.5) % Lymphocytes # (Manual) 0.57 L (1.2-3.4) K/uL Total Abs Lymphocytes 0.57 L (1.2-3.4) K/uL Monocytes # (Manual) 0.64 H (0.11-0.59) K/uL Metamyelocytes # (Man) 0.07 H (0-0) K/uL Myelocytes # (Manual) 0.21 H (0-0) K/uL Promyelocytes # (Man) 0.07 H (0-0) K/uL Blast Cells # (Man) 0.14 H (0-0) K/uL D-Dimer 680 H* (0-500) ug/L FEU Sodium 134 L (136-145) mmol/L Glucose 106 H (70-99(Fasting)) mg/dl Troponin I High Sens 39.7 H 44.6 H (0-20) pg/ml B-Natriuretic Peptide 724 H (0-100) pg/ml Diagnostic Findings XR chest 1V portable CLINICAL HISTORY: Chest pain, nonspecific. Cough. COMPARISON STUDY: Chest radiograph December 25, 2024. FINDINGS: Left subclavian pacer is in place. Cardiomegaly is unchanged. There is no evidence for pulmonary edema or pneumonia. There is no pneumothorax or pleural effusion. IMPRESSION: No acute cardiopulmonary findings. No change in appearance of the chest. CT angio chest PE protocol CT DOSE: 798.95 mGy.cm HISTORY: Shortness of breath with a recent flu exposure. Denies chest pain. History of leukemia awaiting chemotherapy TECHNIQUE: Multiple CTA images of the chest were obtained after the intravenous administration of 112 ml Optiray. Coronal and sagittal MIPS were obtained from the axial data set and were submitted for review. All measurements were obtained according to NASCET criteria. A dose lowering technique was utilized adhering to the principles of ALARA. COMPARISON STUDY: Portable chest same date FINDINGS: There is no evidence of acute pulmonary embolism. The heart is enlarged. There are pronounced coronary artery calcifications. There is some mild pulmonary vascular congestion with some dependent pulmonary edema in the upper and lower lobes raising the question of mild CHF. The aorta demonstrates atherosclerotic plaque and ectasia. There is no significant adenopathy. There is no pneumothorax. There is no pleural effusion. In the upper abdomen, there are hepatic and renal cysts. The spleen is enlarged. There are small lipid rich adrenal adenomas bilaterally. IMPRESSION: No evidence of pulmonary embolism. Suspect mild CHF. No evidence of pneumonia. Hepatic and renal cysts. Splenomegaly. Medications Administered ER medications given: DuoNeb 3 mL neb ECG Rate (beats per minute): 81 Rhythm: normal sinus and other (Premature supraventricular complexes) Findings: + RBBB Comparison ECG Date: from (January 26, 2016) Change: the following changes noted (Premature supraventricular complexes now present) Code Status & VTE Plan Code Status Full VTE Prophylaxis Plan VTE Prophylaxis will be ordered: Yes PG Care Time/CCT Total # of Minutes Spent Total Time Spent with Patient: Total time spent is greater than 50% in coordination of care (as documented) at patient's floor/unit and/or counseling patient: Coding Level of Care Code 53118 INT INP/OBS CARE 3/75MIN Diagnoses Post-viral reactive airway disease J45.998 Acute heart failure with mildly reduced ejection fraction (HFmrEF, 41-49%) I50.21 Apneic episode R06.81 Coronary artery disease involving [place] coronary artery of [place] heart without angina pectoris I25.10 Coronary Disease-Associated Artery/Lesion type: [place] artery [place] vs. transplanted heart: [place] heart Associated angina: without angina Alcohol use disorder F10.90 (4) CAD (coronary artery disease) Coronary Disease-Associated Artery/Lesion type: [place] artery [place] vs. transplanted heart: [place] heart Associated angina: without angina Qualified Code(s): I25.10 - Atherosclerotic heart disease of [place] coronary artery without angina pectoris
[2025-01-03] MEDS: FUROSEMIDE INJ 20 MG/2 ML VIAL IV STA (15:47)
--- NOTE | 2025-01-03 17:04 | XCELERA ---
[id number]
[2025-01-03] MEDS: ALBUT/IPRATROP 3MG/0.5MG NEB 3 ML VIAL NEB SCH (19:34)
[2025-01-03] MEDS: METOPROLOL SUCC 50MG EXT REL TAB PO SCH (20:00)
[2025-01-03] MEDS: ASPIRIN 81 MG ECTAB PO SCH (20:01)
[2025-01-04 08:21] VITALS: PULSE 99; RESP 18; TEMP 97.3; O2SAT 99
[2025-01-04] MEDS: amLODIPine BESYLATE 5 MG TAB PO SCH (08:29)
[2025-01-04] MEDS: ENALAPRIL MALEATE 10 MG TAB PO SCH (08:29)
[2025-01-04] MEDS: FUROSEMIDE 20 MG TAB PO SCH (08:30)
--- NOTE | 2025-01-04 09:56 | Discharge Summary ---
Discharge Summary Date of Service January 04, 2025 Principal Dx & Hospital Course #1 = Principal Diagnosis (1) Post-viral reactive airway disease: Suspect cause of his acute symptoms rather than congestive heart failure given improvement with DuoNeb in the emergency room. Continue DuoNebs q.6 hourly Consider outpatient pulmonary function testing (2) Acute heart failure with mildly reduced ejection fraction (HFmrEF, 41-49%): Pulmonary edema on CT, estimated mildly reduced ejection fraction on POCUS Known history of coronary artery disease (see below) I have a low suspicion this is causing his symptoms given significant impr ovement with DuoNebs TTE - consult cardiology if confirmed to be less than 50% Lasix 20 mg IV (significant diuresis in the emergency room with this), continue 20 mg p.o. starting tomorrow Already taking metoprolol succinate and Benazepril Trace urine protein from December 25, no need to repeat this (3) Apneic episode: Possibly exacerbated by alcohol use, Pulse oximetry arranged overnight but he still should get sleep study as arranged through his PCP. Avoid sedating medications and alcohol (4) CAD (coronary artery disease): Per previous cardiology notes he had a cardiac catheterization 1998 revealing a 100% RCA occlusion with well-developed collaterals and tight stenosis of the obtuse marginal branch of the left circumflex underwent successful PCI. Repeat catheterization 2005 revealed a patent stent with no new abnormalities. Continue aspirin, metoprolol, Benazepril Per prior cardiology notes he was previously on atorvastatin, I am not clear why this is no longer on his medication list but has not been picked up in the last year (5) Alcohol use disorder: Unlikely to get through alcohol withdrawal with his last drink greater than 48 hours ago. AWSS to be fall needs to inform provider if greater than 5 to determine if the patient needs benzodiazepines but given concern for nocturnal apneic episodes we will try to avoid this if at all possible. Plan VTE prophylaxis - low risk, reconsider chemical prophylaxis if he stays longer than tomorrow Diet - heart healthy, low-sodium Disposition - observation to med/tele Admission HPI Per Admitting Provider Clinton Rutledge is a 69-year-old male who presents to the ER on advice of his library services coordinator due to shortness of breath. He reports chronic shortness of breath which she puts down to his primary myelofibrosis. This has been worse the last 2 days with associated nasal congestion and nonproductive cough. He feels he picked up a viral infection. Significant improvement with DuoNeb given in the emergency room. No known diagnosis of COPD or asthma. No chest pain. He is also concerned about sleep apnea and testing has been arranged by his PCP. He reports waking up during the nighttime with a feeling of stopping breathing. Discharge Exam GENERAL APPEARANCE NAD, activity normal for age, well developed/ well nourished, no cyanosis, pallor, or diaphoresis. EYES lids/conjunctiva normal. EARS/NOSE/THROAT Mucous membranes moist, nares normal, lips/teeth normal uvula midline without oral pharyngeal erythema, exudate or swelling TMs normal bilaterally. No lymphangitis/lymphedema. HEAD/NECK normocephalic atraumatic, no facial trauma, neck is supple. RESPIRATORY respiratory effort normal, speaks in full sentences, no tripod position, no accessory muscle use. Lungs clear to auscultation without rhonchi, wheezes, rales CARDIAC Regular rate and rhythm, no edema. ABDOMINAL Soft, ND/NT. No evidence of fluid wave. No pulsatile masses on exam, rebound tenderness, Soliz sign or pain over Mcburney's point. MUSCLES/EXTREMITIES No abnormal range of motion, no swelling. SKIN Warm, pink and dry. No rashes, dermatoses, petechiae or lesions. NEUROLOGICAL Speech is clear and appropriate. Normal level of consciousness. Gait and coordination are normal. 5/5 strength in all extremities. PSYCH Normal mood and affect. Judgement/competence is appropriate Discharge Plan Discharge Items Patient Disposition: Home - Self-Care Reason For Visit: VIRAL INDUCED REACTIVE AIRWAY DISEASE, HEART FAILU Discharge Diagnosis: Reactive airway disease Activity: Resume your previous activity Non-emergency contact: Primary Care Provider Call non-emergency contact if: you have any medication questions Follow-up/Referrals: Sarika Lin DO [Primary Care Provider] - Diet: Regular Addtl Attending Provider Instructions: Follow up with PMD in 1 week Pending Studies at Discharge: No Stand-Alone Forms: [facility] ViewsIQ, Smoking Cessation Medications and DC Order Prescriptions: New albuterol-budesonide 90-80 mcg/actuation HFA aerosol inhaler 2 inh inhalation TID PRN (Reason: shortness of breath) Qty: 5.9 0RF Continued metoprolol succinate 100 mg tablet extended release 24 hr 100 mg PO BID Qty: 180 3RF nitroglycerin [Nitrostat] 0.4 mg tablet, sublingual 0.4 mg Sublingual UD PRN (Reason: Chest Pain) Qty: 25 3RF aspirin 81 mg Tablet,Delayed Release (Dr/Ec) 81 mg PO HS amlodipine-benazepril 10-40 mg capsule 1 cap PO QAM Discharge Orders: Discharge Order (Routine); Ordered 01/04/25 Ordered By: Gustavo Stern Admission Data Admit Date/Time: 01/03/25 14:10 Attending Provider: Gustavo Stern Admit Provider: Hammad Kiran Primary Care Provider: Sarika Lin Other Providers: Hammad Kiran Hospital Stay Data Consultations 01/03/25 12:32 ED Decision to Admit Stat Diagnostic Imagining Performed 01/03/25 11:20 CT angio chest PE protocol Stat Pending Results Patient Have Any Pending Studies at Discharge: No Discharge Instructions Given to Patient (Per Discharging Provider) Follow up with PMD in 1 week Total Time Total Time Spent Total Time Spent (In Minutes): 50 Coding Level of Care Code 30413 INP/OBS DISCH >30 MIN Diagnoses Post-viral reactive airway disease J45.998 Acute heart failure with mildly reduced ejection fraction (HFmrEF, 41-49%) I50.21 Apneic episode R06.81 Coronary artery disease involving [place] coronary artery of [place] heart without angina pectoris I25.10 Coronary Disease-Associated Artery/Lesion type: [place] artery [place] vs. transplanted heart: [place] heart Associated angina: without angina Alcohol use disorder F10.90
[2025-01-04 10:42] VITALS: BP 131/89
== END 2025-01-04 11:10 | disposition home or self-care (01) ==
LOC: 2N 09:27 → ED 09:27 → SUATTDRO 14:10 → 2N 16:59

== ENCOUNTER 2025-01-25 15:58 | Inpatient (IN) ==
[2025-01-25] MEDS: NITROGLYCERIN 2% OINTMENT 30GM TUBE EXT STA (16:16)
--- NOTE | 2025-01-25 16:16 | Emergency Department Note ---
Impression & Plan Respiratory failure, CHF (congestive heart failure), COPD exacerbation, Elevated troponin, Leukocytosis ED Provider Note NAME: GILMA AVILA AGE: 69 SEX: M : 1955 ARRIVES VIA: Ambulance INFORMANT: [Patient][ems] ED PROVIDER(S): [Sampson Hurst MD] CHIEF COMPLAINT: Short of breath HISTORY OF PRESENT ILLNESS: The patient is a 69-year-old male with COPD and heart failure. He has noticed increasing dyspnea for 3 weeks. Things progressively worsened today to the point where he was quite short of breath. The patient did see his doctor's office 2 days ago. He was told that he had some fluid buildup and he was placed on Lasix. He thought initially it seemed to help but then today, things worsened. There has been no fever, no increased cough. His dyspnea is mostly with exertion but today, he even noticed it at rest. He has noticed some increasing pedal edema the last few days as well. There is no chest pain, he has not had vomiting or abdominal pain. The patient states that in route, they sprayed 1 nitroglycerin under his tongue and as per the nursing staff, the patient was given a 200 cc saline bolus. PMHx/PSHx/Social Hx: See Below PHYSICAL EXAM: GENERAL: Patient is in moderate respiratory distress. HEENT: No acute trauma, normocephalic atraumatic, mucous membranes moist, no nasal congestion. NECK: No stridor, no adenopathy, no meningismus, trachea is midline. LUNGS: There is moderate respiratory distress with an increased respiratory rate and some accessory muscle use. Patient does have some expiratory wheeze and there are some crackles to both lower lung evans. HEART: No murmur, the patient does seem mildly tachycardic with an occasional extra beat. ABDOMEN: Soft, nontender, no peritonitis. EXTREMITIES: No cyanosis, full range of motion of all the joints without pain or difficulty. Mild bilateral pedal edema. NEUROLOGIC: Oriented x 3, no acute motor or sensory deficits, no focal weakness. SKIN: No jaundice, no diaphoresis. DIFFERENTIAL DIAGNOSIS: Exacerbation of COPD, CHF, VT, anemia, viral illness, bronchitis, among others. EMERGENCY DEPARTMENT PROCEDURES: MEDICAL DECISION MAKING: There is a moderate leukocytosis at 18,000, this could be consistent with infection or just the stress of his dyspnea. Patient was anemic however, he carries a history of anemia. There was a normal platelet count. INR slightly elevated at 1.2. VBG did not show any acidosis or CO2 retention. Renal panel testing shows a low sodium at 127. No renal failure. Lactic acid level was elevated. This lactic acid elevation could be secondary to infection versus his dyspnea/hypoxia. No concerning liver enzyme elevation. ECG showed a sinus rhythm, no obvious acute ischemia. Cardiac enzyme testing x 1 was slightly elevated. This troponin elevation could be secondary to cardiac injury or mismatch from his dyspnea/hypoxia. BNP was quite high at over 3000, this is consistent with heart failure. Chest x-ray does show bilateral pleural effusions as well as CHF. Urinalysis did not show findings of infection. Respiratory bio fire is pending. On exam, the patient was in respiratory distress. He looked uncomfortable. The patient was aggressively managed. He was given 2 inches of nitroglycerin paste, 60 mg of IV Lasix, 60 mg of IV Solu-Medrol, 2 g of IV ceftriaxone. A Askew catheter was placed. He was eventually placed on BiPAP. With the above interventions, the patient has significantly improved. I believe the BiPAP was the most helpful. The patient has diuresed over a liter of fluid. He is currently resting and states he feels markedly improved. I did speak with the patient and his family about our findings on workup. The patient is clearly in need of a hospital stay. I did speak with case management as well as the on-call hospitalist. In short, the patient dyspnea is likely faulty factorial. I believe he has heart failure, this has flared his COPD. Both diagnoses are contributing to his presentation. Prior/Outside records/notes reviewed: Family practice note from 01/23/2025 describing his presentation, findings and plan outpatient. ECG per my interpretation: Indication was shortness of breath. The ECG shows a sinus rhythm with some sinus arrhythmia as well as some PACs. The rate is 93. There is a right bundle branch block. LVH is present. There is artifact present. No obvious ST elevation. There are inverted T waves noted laterally. There is evidence for an old septal infarct. QTc was 571. Continuous Cardiac Monitoring per my interpretation: An order was placed for continuous cardiac monitoring. The monitor shows a rate of 103 with sinus tachycardia. Imaging/x-ray results per my interpretation: Chest x-ray shows pleural effusions and CHF. No pneumothorax. The heart failure has worsened from a few days ago. Chronic Medical/Social conditions affecting care: Advanced age, history of heart failure and COPD Care/Management discussed with: Case management, the on-call hospitalist. Level of care consideration(s): After review of the information above and other included data: --I believe the patient requires escalation of care to admission Critical Care Note: I have personally spent 48 minutes of critical care time in the direct management of this patient. This includes bedside care, interpretation of diagnostic studies, and testing, discussion with consultants, patient, and family members, and other required patient management activities. This 48 minutes is in excess of all separately billable procedures. DISPOSITION: Admission Past Med/Surg History Problem List (Updated 01/25/25 @ 18:09 by Jan Du MD) Sepsis Leukocytosis (Acute) Elevated troponin (Acute) COPD exacerbation (Acute) CHF (congestive heart failure) (Acute) Respiratory failure (Acute) Anxiety COPD (chronic obstructive pulmonary disease) Post-viral reactive airway disease Primary myelofibrosis Hyponatremia Vitamin D deficiency Hypertension Proteinuria Parakeratosis (Chronic) Left renal artery stenosis (Acute) Former smoker (Acute) 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 (Acute) Pacemaker Incisional hernia Sick sinus syndrome (Chronic 2005) Meditronic Dual chamber pacemaker placed 01/02/2006 Abdominal aortic aneurysm S/P REPAIR 12 YEARS PRIOR, [facility] Hyperlipidemia (Chronic) HTN (hypertension) (Chronic) GERD (gastroesophageal reflux disease) (Acute) Medical History Apneic episode Acute heart failure with mildly reduced ejection fraction (HFmrEF, 41-49%) Alcohol use disorder CAD (coronary artery disease) (1998) Cardiac Catheterization revealed 100% RCA occlusion with well developed collaterals with stenosis of obtuse marginal and left circumflex with stent placement. Rectal bleeding Bailey esophagus Hypertension Surgical History History of cataract surgery History of colonoscopy History of esophagogastroduodenoscopy (EGD) History of AAA (abdominal aortic aneurysm) repair History of surgery History of surgery History of herniorrhaphy History of cardiac cath Family History Father Diabetes Myocardial infarction Hypertension Mother Diabetes Hypertension Gall bladder disease Other No family history of adverse response to anesthesia Denies family history of Ovarian cancer Prostate cancer Breast cancer Lung cancer Colorectal cancer Social History Smoking Status: Former smoker Tobacco Type: Cigarettes Age Started Using Tobacco: 16; Age Quit Using Tobacco: 46; packs per day: 1; Cigarettes Per Day: quit 15 years; Second Hand Exposure: No; Do You Dip or Chew Tobacco: No; Hx Alcohol Use: Yes Alcohol type: hard liquor Hx Substance Use: Yes Last Used Substance: Days (ago) Last Used Substance Other:: 5 days ago Preferred Language: Slovak Communication Ability: Effective Visual Impairment: Limited Hearing Ability: Normal [employer] [place] Manager Required: No Beliefs That Will Affect Care: None marital status: Current Living Situation: Spouse current occupational status: retired Feels Safe at Home: Yes Childhood Exposure to Second-Hand Smoke: No caffeine: Yes Dental Care, Regularly: No Physical Activity Frequency: Does not Exercise Seatbelt Use: always Sunscreen Use: No Assistive Devices: None Allergies Allergies Allergy/AdvReac Type Severity Reaction Status Date / Time No Known Allergies Allergy Verified 01/23/25 09:18 Home Meds Home Medications Medication Instructions Recorded Confirmed amlodipine 10 mg-benazepril 40 mg 1 cap PO QAM 01/03/25 01/25/25 capsule aspirin 81 mg tablet,delayed 81 mg PO HS 01/03/25 01/25/25 release escitalopram oxalate 10 mg tablet 5 - 10 mg PO DAILY 01/25/25 01/25/25 (Lexapro) zolpidem 5 mg tablet 5 mg PO UD 01/25/25 01/25/25 Previous Rx's Medication Instructions Recorded nitroglycerin 0.4 mg sublingual 0.4 mg sublingual UD PRN Chest 06/26/24 tablet (Nitrostat) Pain #25 tabs albuterol sulfate 90 mcg/actuation 2 puff inhalation QID #8.5 grams 01/06/25 aerosol inhaler furosemide 20 mg tablet (Lasix) 20 mg PO DAILY #90 tabs 01/09/25 metoprolol succinate 100 mg 100 mg PO BID #180 tabs 01/14/25 tablet,extended release 24 hr fluticasone fur. 100 mcg-umeclid 1 inh inhalation DAILY #28 ea 01/22/25 62.5 mcg-vilant 25 mcg inhalat.powder (Trelegy Ellipta) lorazepam 0.5 mg tablet 0.5 mg PO BID PRN anxiety #28 tabs 01/23/25 Results & Data (ED) Vital Signs Vital Signs - 24 hr 01/25/25 16:11 01/25/25 16:11 01/25/25 16:15 Temperature 36.5 C Temperature Source Oral Pulse Rate 97 H 97 H 99 H Respiratory Rate 30 H 30 H Respiratory Effort / Characteristics Labored Respiratory Depth Deep Respiratory Pattern Regular Blood Pressure 158/109 H Blood Pressure Mean 125 Pulse Oximetry 90 90 Oxygen Delivery Method Room Air Room Air Fraction of Inspired Oxygen Sepsis Recent Fever Within 48 Hours No Sepsis New/Unexplained Change in Mental Status N/A Sepsis Action Taken by Nursing No Action Required Oxygen Flow Rate - Titration 01/25/25 17:03 01/25/25 17:06 Temperature Temperature Source Pulse Rate Respiratory Rate 21 Respiratory Effort / Characteristics Spontaneous Labored Short of Breath Respiratory Depth Normal Respiratory Pattern Blood Pressure Blood Pressure Mean Pulse Oximetry 96 Oxygen Delivery Method BiPAP Fraction of Inspired Oxygen 24 Sepsis Recent Fever Within 48 Hours Sepsis New/Unexplained Change in Mental Status Sepsis Action Taken by Nursing Oxygen Flow Rate - Titration 24 Home Medications Current Medication List: was personally reviewed by me Laboratory Data Attestation: I reviewed the patient's lab results. 01/25/25 16:18 01/25/25 16:18 Lab Results 01/25/25 01/25/25 01/25/25 Range/Units 16:18 16:43 17:00 WBC 18.85 H (4.8-10.8) K/ul RBC 3.28 L (4.70-6.10) M/uL Hgb 10.7 L (14.0-18.0) g/dl Hct 31.9 L (42.0-52.0) % MCV 97.3 (80.0-100.0) fL MCH 32.6 (25.0-34.0) pg MCHC 33.5 (32.0-36.0) g/dL RDW Std Deviation 70.4 H (36.4-46.3) fL RDW Coeff of Dominique 20.3 H (11.5-14.5) % Plt Count 204 (130-400) K/uL MPV 9.8 (9.4-12.4) fL Absolute Nucleated RBC 0.28 H (0.00-0.12) K/uL Nucleated RBC % (auto) 1.5 % Neutrophils % (Manual) 75 % Lymphocytes % (Manual) 6 % Monocytes % (Manual) 10 % Metamyelocytes % (Man) 3 % Myelocytes % (Man) 3 % Promyelocytes % (Man) 3 % Neutrophils # (Manual) 14.14 H (1.40-6.50) K/uL Total Absolute Neuts 14.14 H (1.4-6.5) K/uL Lymphocytes # (Manual) 1.13 L (1.2-3.4) K/uL Total Abs Lymphocytes 1.13 L (1.2-3.4) K/uL Monocytes # (Manual) 1.89 H (0.11-0.59) K/uL Metamyelocytes # (Man) 0.57 H (0-0) K/uL Myelocytes # (Manual) 0.57 H (0-0) K/uL Promyelocytes # (Man) 0.57 H (0-0) K/uL PT 12.6 H (9.0-12.0) Seconds INR 1.2 H (0.9-1.1) APTT 26 (21-31) Seconds PTT Ratio 1.0 VBG pH 7.39 (7.36-7.41) VBG pCO2 35 L (38-50) mmHg VBG pO2 44 mmHg VBG HCO3 21 mmol/L VBG O2 Saturation 74.3 % VBG Base Excess -3.1 mEq/L Sodium 127 L (136-145) mmol/L Potassium 4.0 (3.5-5.1) mmol/L Chloride 94 L (98-107) mmol/L Carbon Dioxide 24 (21-32) mmol/L Anion Gap 9 (3-11) BUN 35 H (6-23) mg/dl Creatinine 0.80 (0.6-1.4) mg/dl Est Cr Clr Drug Dosing 99.4 ml/min eGFR 95.21 BUN/Creatinine Ratio 43.8 H (10-20) Glucose 132 H (70-99(Fasting)) mg/dl Lactate 2.1 H* (0.4-2.0) mmol/L Calcium 8.6 (8.6-10.3) mg/dl Magnesium 2.2 (1.7-2.4) mg/dl Total Bilirubin 1.5 H (0.2-1.0) mg/dl AST 22 (13-39) U/L ALT 36 (7-52) U/L Alkaline Phosphatase 65 (34-104) U/L Troponin I High Sens 59.5 H* (0-20) pg/ml B-Natriuretic Peptide 3136 H (0-100) pg/ml Total Protein 6.4 (6.0-8.3) gm/dl Albumin 3.6 (3.4-5.0) gm/dl Globulin 2.8 (2.5-4.0) gm/dl Albumin/Globulin Ratio 1.3 (0.9-2) Procalcitonin 0.28 (0-0.5) ng/ml Urine Color Yellow Urine Appearance Clear (Clear) Urine pH 5.5 (4.5-7.5) Ur Specific [place] 1.017 (1.000-1.030) Urine Protein 2+ H (Negative) Urine Glucose (UA) Negative (Negative) Urine Ketones 1+ H (Negative) Urine Blood Negative (Negative) Urine Nitrite Negative (Negative) Urine Bilirubin Negative (Negative) Urine Urobilinogen Negative (Negative) Ur Leukocyte Esterase Negative (Negative) Urine WBC (Auto) 0-5 (0-5) /hpf Urine RBC (Auto) 0-2 (0-2) /hpf U Hyaline Cast (Auto) 6-10 H (0-2) /lpf U Epithel Cells (Auto) 0-2 (0-2) /hpf Urine Bacteria (Auto) None Seen (None Seen) Hyaline Casts Present A (None Presnt) /lpf Administered Medications Discontinued Medications Albuterol (Albut/Ipratrop 3mg/0.5mg Neb 3 Ml Vial) 3 ml NEB NOW STA; Protocol Stop: 01/25/25 16:12 Last Admin: 01/25/25 16:17 Dose: 3 ml Documented By: NRB Furosemide (Furosemide 40 Mg/4 Ml Vial) 60 mg IV ONE ONE Stop: 01/25/25 16:12 Last Admin: 01/25/25 16:17 Dose: 60 mg Documented By: NRB Ceftriaxone Sodium (Rocephin) 2,000 mg in 50 mls @ 100 mls/hr IV NOW STA Stop: 01/25/25 17:10 Last Infusion: 01/25/25 17:23 Dose: Infused Documented By: Admin: 01/25/25 16:52 Dose: 100 mls/hr Documented By: AMIE Methylprednisolone (Methylprednisolone 125 Mg/2 Ml Vial) 60 mg IV NOW STA Stop: 01/25/25 16:12 Last Admin: 01/25/25 16:17 Dose: 60 mg Documented By: SANDRA Nitroglycerin (Nitroglycerin 2% Ointment 30gm Tube) 2 inch EXT NOW STA Stop: 01/25/25 16:12 Last Admin: 01/25/25 16:16 Dose: 2 inch Documented By: SANDRA Discharge Plan Visit Data Chief Complaint: Shortness of Breath/Dyspnea Stated Complaint: SOB ED Provider: Sampson Hurst Discharge Problem: Respiratory failure, CHF (congestive heart failure), COPD exacerbation, Elevated troponin, Leukocytosis Patient Disposition: Admitted As Inpatient Condition: Serious Forms Stand Alone Forms: My [facility] [employer] Prescriptions Prescriptions: No Action albuterol sulfate 90 mcg/actuation HFA aerosol inhaler 2 puff inhalation QID Qty: 8.5 2RF metoprolol succinate 100 mg tablet extended release 24 hr 100 mg PO BID Qty: 180 3RF nitroglycerin [Nitrostat] 0.4 mg tablet, sublingual 0.4 mg Sublingual UD PRN (Reason: Chest Pain) Qty: 25 3RF Trelegy Ellipta 100-62.5-25 mcg blister with device 1 inh inhalation DAILY Qty: 28 2RF furosemide [Lasix] 20 mg tablet 20 mg PO DAILY Qty: 90 3RF lorazepam 0.5 mg tablet 0.5 mg PO BID PRN (Reason: anxiety) Qty: 28 0RF aspirin 81 mg Tablet,Delayed Release (Dr/Ec) 81 mg PO HS amlodipine-benazepril 10-40 mg capsule 1 cap PO QAM zolpidem 5 mg tablet 5 mg PO UD Rx Instructions: Take when you arrive to the sleep lab, prior to sleep study. escitalopram oxalate [Lexapro] 10 mg tablet 5 - 10 mg PO DAILY Rx Instructions: start with 1/2 tablet daily for 1-2 weeks, then increase to one tab daily. Referrals Referrals: Basedow,Marya, DO [Primary Care Provider] - Discharge Problem: Respiratory failure Qualifiers: Chronicity: acute Respiratory failure complication: hypoxia Qualified Code(s): J96.01 - Acute respiratory failure with hypoxia CHF (congestive heart failure) Qualifiers: Heart failure type: unspecified Heart failure chronicity: acute on chronic Q ualified Code(s): I50.9 - Heart failure, unspecified Leukocytosis Qualifiers: Leukocytosis type: unspecified Qualified Code(s): D72.829 - Elevated white blood cell count, unspecified
[2025-01-25] MEDS: methylPREDNISolone 125 MG/2 ML VIAL IV STA (16:17)
[2025-01-25] MEDS: ALBUT/IPRATROP 3MG/0.5MG NEB 3 ML VIAL NEB STA (16:17)
[2025-01-25] MEDS: FUROSEMIDE 40 MG/4 ML VIAL IV ONE (16:17)
[2025-01-25 16:28] LABS: Base Excess VBG -3.1 mEq/L; HCO3 VBG 21 mmol/L; Oxygen Saturation VBG 74.3 %; PCO2 VBG 35 mmHg (38-50); PO2 VBG 44 mmHg; pH VBG 7.39 (7.36-7.41)
[2025-01-25 16:39] LABS: Hematocrit (blood only) 31.9 % (42.0-52.0); Hemoglobin 10.7 g/dl (14.0-18.0); Mean Corpuscular Hemoglobin 32.6 pg (25.0-34.0); Mean Corpuscular Hgb Conc 33.5 g/dL (32.0-36.0); Mean Corpuscular Volume 97.3 fL (80.0-100.0); Mean Platelet Volume 9.8 fL (9.4-12.4); Nucleated RBC # (auto) 0.28 K/uL (0.00-0.12); Nucleated RBC % (auto) 1.5 %; Platelet Count 204 K/uL (130-400); RDW Coefficient of Variation 20.3 % (11.5-14.5); RDW Standard Deviation 70.4 fL (36.4-46.3); Red Blood Count 3.28 M/uL (4.70-6.10); White Blood Count 18.85 K/ul (4.8-10.8)
[2025-01-25] MEDS: cefTRIAXone SODIUM 2,000 MG/50 ML BAG IV STA (16:52)
[2025-01-25 16:54] LABS: Albumin Globulin Ratio 1.3 (0.9-2); Albumin Level 3.6 gm/dl (3.4-5.0); BUN Creatinine Ratio 43.8 (10-20); Bilirubin,Total 1.5 mg/dl (0.2-1.0); Calcium 8.6 mg/dl (8.6-10.3); Creatinine Clr Calc Pharmacy 99.4 ml/min; Globulin 2.8 gm/dl (2.5-4.0); Magnesium 2.2 mg/dl (1.7-2.4); Total Protein 6.4 gm/dl (6.0-8.3)
[2025-01-25 17:01] LABS: Appearance Urine Clear (Clear); Bacteria Urine Automated None Seen (None Seen); Bilirubin Urine Negative (Negative); Blood Urine Negative (Negative); Color Urine Yellow; Epithelial Cell Urine Auto 0-2 /hpf (0-2); Glucose Urine UA Negative (Negative); Hyaline Casts Urine Present /lpf (None Presnt); Ketones Urine 1+ (Negative); Leukocyte Esterase Urine Negative (Negative); Nitrite Urine Negative (Negative); Protein Urine 2+ (Negative); RBC Urine Automated 0-2 /hpf (0-2); Specific Gravity Urine 1.017 (1.000-1.030); Urobilinogen Urine Negative (Negative); WBC Urine Automated 0-5 /hpf (0-5); pH Urine 5.5 (4.5-7.5)
[2025-01-25 17:04] LABS: INR 1.2 (0.9-1.1); Partial Thromboplastin Time 26 Seconds (21-31); Prothrombin Time 12.6 Seconds (9.0-12.0)
[2025-01-25 17:06] LABS: ALC (manual) 1.13 K/uL (1.2-3.4); ANC (manual) 14.14 K/uL (1.4-6.5); Lymphocytes # (manual) 1.13 K/uL (1.2-3.4); Lymphocytes % (manual) 6 %; Metamyelocytes # (manual) 0.57 K/uL (0-0); Metamyelocytes % (manual) 3 %; Monocytes # (manual) 1.89 K/uL (0.11-0.59); Monocytes % (manual) 10 %; Myelocytes # (manual) 0.57 K/uL (0-0); Myelocytes % (manual) 3 %; Neutrophils # (manual) 14.14 K/uL (1.40-6.50); Neutrophils % (manual) 75 %; Promyelocytes # (manual) 0.57 K/uL (0-0); Promyelocytes % (manual) 3 %
[2025-01-25 17:19] LABS: Troponin I High Sensitivity 59.5 pg/ml (0-20)
[2025-01-25 17:22] LABS: Adenovirus PCR Not Detected (NotDetected); Bordetella parapertussis PCR Not Detected (NotDetected); Bordetella pertussis PCR Not Detected (NotDetected); Chlamydia pneumoniae PCR Not Detected (NotDetected); Coronavirus 229E PCR Not Detected (NotDetected); Coronavirus CoV-2 (COVID19)PCR Not Detected (NotDetected); Coronavirus HKU1 PCR Not Detected (NotDetected); Coronavirus NL63 PCR Not Detected (NotDetected); Human Metapneumovirus PCR Not Detected (NotDetected); Influenza B PCR Not Detected (NotDetected); Mycoplasma pneumoniae PCR Not Detected (NotDetected); Parainfluenza Virus 1 PCR Not Detected (NotDetected); Parainfluenza Virus 2 PCR Not Detected (NotDetected); Parainfluenza Virus 3 PCR Not Detected (NotDetected); Parainfluenza Virus 4 PCR Not Detected (NotDetected); Respiratory Syncytial VirusPCR Not Detected (NotDetected); Rhinovirus/Enterovirus PCR Not Detected (NotDetected)
[2025-01-25 18:11] LABS: Coronavirus OC43PCR Not Detected (NotDetected); Influenza A NoSubtype PCR DETECTED (NotDetected)
--- NOTE | 2025-01-25 18:11 | History & Physical Report ---
Date of Service January 25, 2025 Assessment & Plan (1) Sepsis: Plan: Elevated lactate, elevated WBC, possible infiltrates in the lung Although patient is afebrile, I think the lactate elevation is possibly from tissue hypoxia WBC probably from his recent diagnosis of leukemia However blood cultures obtained, empirically start IV cefepime (2) Acute heart failure with mildly reduced ejection fraction (HFmrEF, 41-49%): Plan: Patient with a history of congestive heart failure with reduced ejection fraction. Presents to the hospital with worsening shortness of breath, leg swelling BNP above 3000 Chest x-ray showed evidence of congestive changes Will be started on IV Lasix 40 mg twice daily Monitor input and output, daily weight (3) COPD (chronic obstructive pulmonary disease): Plan: Also history of COPD, examination shows bibasilar wheeze Recent pulmonary function test confirms obstructive picture Will continue DuoNebs scheduled and as needed, Trelegy IV Solu-Medrol 40 mg every 8 hours (4) Primary myelofibrosis: Plan: According to the , patient was diagnosed with leukemia last June Probably daily reason for the leukocytosis Patient not on any medication (5) Hypertension: Plan: Blood pressure 158/109 At home takes amlodipine and benazepril, will resume Recheck blood pressure. Plan Admit to telemetry Full code DVT prophylaxis heparin History of Present Illness Chief Complaint: SOB, leg swelling Primary Care Provider: Sarika Lin DO This is a 69-year-old male with a history of heart failure with reduced ejection fraction, COPD, hypertension, primary myelofibrosis, leukemia who presents to the hospital today with complaints of worsening shortness of breath and leg swelling. According to the from home most of the history was obtained, patient has been taking his prescribed medicine as recommended however over the past couple of days he got more short of breath even when his Lasix was increased. Upon arrival at emergency department he was in respiratory distress and was just a few minutes from being intubated. However he was put on BiPAP and did well. Vital signs, blood pressure 158/100, chest x-ray was done showed evidence of pulmonary congestion WBC was 19,000 serum lactate 2.1 troponin 59.5, BNP 3000. Patient was started on IV Lasix, blood cultures already obtained, will be admitted to the hospital further management. Allergies Allergy/AdvReac Type Severity Reaction Status Date / Time No Known Allergies Allergy Verified 01/23/25 09:18 Home Medications Medication Instructions Recorded Confirmed Type nitroglycerin 0.4 mg sublingual 0.4 mg sublingual UD PRN Chest 06/26/24 01/25/25 Rx tablet (Nitrostat) Pain #25 tabs amlodipine 10 mg-benazepril 40 mg 1 cap PO QAM 01/03/25 01/25/25 History capsule aspirin 81 mg tablet,delayed 81 mg PO HS 01/03/25 01/25/25 History release albuterol sulfate 90 mcg/actuation 2 puff inhalation QID #8.5 grams 01/06/25 01/25/25 Rx aerosol inhaler furosemide 20 mg tablet (Lasix) 20 mg PO DAILY #90 tabs 01/09/25 01/25/25 Rx metoprolol succinate 100 mg 100 mg PO BID #180 tabs 01/14/25 01/25/25 Rx tablet,extended release 24 hr fluticasone fur. 100 mcg-umeclid 1 inh inhalation DAILY #28 ea 01/22/25 01/25/25 Rx 62.5 mcg-vilant 25 mcg inhalat.powder (Trelegy Ellipta) lorazepam 0.5 mg tablet 0.5 mg PO BID PRN anxiety #28 tabs 01/23/25 01/25/25 Rx escitalopram oxalate 10 mg tablet 5 - 10 mg PO DAILY 01/25/25 01/25/25 History (Lexapro) zolpidem 5 mg tablet 5 mg PO UD 01/25/25 01/25/25 History Past Med/Surg History Problem List (Updated 01/25/25 @ 18:09 by Jan Du MD) Sepsis Leukocytosis (Acute) Elevated troponin (Acute) COPD exacerbation (Acute) CHF (congestive heart failure) (Acute) Respiratory failure (Acute) Anxiety COPD (chronic obstructive pulmonary disease) Post-viral reactive airway disease Primary myelofibrosis Hyponatremia Vitamin D deficiency Hypertension Proteinuria Parakeratosis (Chronic) Left renal artery stenosis (Acute) Former smoker (Acute) 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 (Acute) Pacemaker Incisional hernia Sick sinus syndrome (Chronic 2005) Meditronic Dual chamber pacemaker placed 01/02/2006 Abdominal aortic aneurysm S/P REPAIR 12 YEARS PRIOR, [facility] Hyperlipidemia (Chronic) HTN (hypertension) (Chronic) GERD (gastroesophageal reflux disease) (Acute) Medical History Rectal bleeding Bailey esophagus Hypertension Surgical History History of cataract surgery History of colonoscopy History of esophagogastroduodenoscopy (EGD) History of AAA (abdominal aortic aneurysm) repair History of surgery History of surgery History of herniorrhaphy History of cardiac cath Family History Father Diabetes Myocardial infarction Hypertension Mother Diabetes Hypertension Gall bladder disease Other No family history of adverse response to anesthesia Denies family history of Ovarian cancer Prostate cancer Breast cancer Lung cancer Colorectal cancer Social History Smoking Status: Former smoker Tobacco Type: Cigarettes Age Started Using Tobacco: 16; Age Quit Using Tobacco: 46; packs per day: 1; Cigarettes Per Day: quit 15 years; Second Hand Exposure: No; Do You Dip or Chew Tobacco: No; Hx Alcohol Use: Yes Alcohol type: hard liquor Hx Substance Use: Yes Last Used Substance: Days (ago) Last Used Substance Other:: 5 days ago Preferred Language: Samoan Communication Ability: Effective Visual Impairment: Limited Hearing Ability: Normal Experimental Mechanic Electrical Required: No Beliefs That Will Affect Care: None marital status: Current Living Situation: Spouse current occupational status: retired Feels Safe at Home: Yes Childhood Exposure to Second-Hand Smoke: No caffeine: Yes Dental Care, Regularly: No Physical Activity Frequency: Does not Exercise Seatbelt Use: always Sunscreen Use: No Assistive Devices: None Review of Systems Review of Systems: All systems reviewed are negative, apart from the ones contained in the history. Physical Exam Physical Exam: The patient is awake, alert and oriented 3, well developed and well nourished, normocephalic and atraumatic, lying in bed and in no acute distress. HEENT--PERRL, EOMI, mucous membranes and oropharynx mildly dry Neck--supple. No JVD. No bruits. Thyroid normal, trachea midline, no adenopathy. Heart--normal S1 and S2. No murmurs, rubs or gallops. Lungs--Reduced air entry to auscultation, bibasilar crackles and wheeze Abdomen--normal bowel sounds and soft. Extremities--no cyanosis or clubbing. trace leg edema. Dermatologic--normal skin turgor, normal color, no abnormal lymph nodes, no r reese. Neurologic--cranial nerves II through XII grossly intact. Rheumatologic--normal range of motion. Psychiatric--normal affect. Results & Data Results & Data Vital Signs (Past 12 Hours) Vital Signs Temp Pulse Resp BP Pulse Ox O2 Del Method FiO2 01/25/25 17:06 BiPAP 01/25/25 17:03 21 96 24 01/25/25 16:15 99 H 01/25/25 16:11 97 H 30 H 90 Room Air 01/25/25 16:11 97.7 F 97 H 30 H 158/109 H 90 Room Air PG Care Time/CCT Total # of Minutes Spent Total Time Spent with Patient: Total time spent is greater than 50% in coordination of care (as documented) at patient's floor/unit and/or counseling patient: Coding Level of Care Code 80603 INT INP/OBS CARE 3/75MIN Diagnoses Sepsis A41.9 Acute heart failure with mildly reduced ejection fraction (HFmrEF, 41-49%) I50.21 COPD (chronic obstructive pulmonary disease) J44.9 Primary myelofibrosis D47.1 Hypertension I10 Time Spent (min) 75
[2025-01-25 18:17] LABS: Influenza A PCR Not Detected (NotDetected)
[2025-01-25] MEDS ORDERED: ZOLPIDEM TARTRATE 5 MG TAB PO SCH (21:37)
[2025-01-25] MEDS ORDERED: NITROGLYCERIN SL 0.4 MG/TAB TAB SL PRN (21:37)
[2025-01-25] MEDS ORDERED: NON-FORMULARY MEDICATION (Fluticasone-Umeclidin-Vilanter [Trelegy Ellipta] 100-62.5-25 mcg INH SCH (21:37)
[2025-01-25] MEDS ORDERED: LORazepam 0.5 MG TAB PO PRN (21:37)
[2025-01-25] MEDS: ENALAPRIL MALEATE 10 MG TAB PO SCH (22:37)
[2025-01-25] MEDS: CEFEPIME 2000MG 2,000 MG/20 ML SYR IV SCH (22:39)
[2025-01-25] MEDS: ASPIRIN 81 MG ECTAB PO SCH (22:39)
[2025-01-25] MEDS: FUROSEMIDE 40 MG/4 ML VIAL IV SCH (22:39)
[2025-01-25] MEDS: METOPROLOL SUCC 50MG EXT REL TAB PO SCH (22:39)
[2025-01-25] MEDS: amLODIPine BESYLATE 5 MG TAB PO SCH (22:40)
[2025-01-25] MEDS: HEPARIN SOD 5,000 UNIT/0.5 ML VIAL SQ SCH (22:40)
[2025-01-25] MEDS: ALBUTEROL HFA 8 GM INHALER INH SCH (22:56)
[2025-01-26 04:06] LABS: Base Excess ABG 2.1 mEq/L (-9-1.8); HCO3 ABG 26 mmol/L (19-24); Oxygen Saturation ABG 96.3 % (90-95); PCO2 ABG 35 mmHg (35-46); PO2 ABG 72 mmHg (80-95); pH ABG 7.47 (7.35-7.45)
[2025-01-26 04:11] LABS: Allen Test Pos (Pos)
--- NOTE | 2025-01-26 06:42 | XRay Report ---
EXAM: XR chest 1V portable CLINICAL HISTORY: Dyspnea. TECHNIQUE: An X-ray image of the chest is obtained in AP projection. COMPARISON: 01/23/2025 X-ray. FINDINGS: Pulmonary Parenchyma: Bilateral coarse and thickened bronchovascular markings with inhomogeneous airspace opacification of bilateral lungs. Bilateral pleural effusion with subsegmental lower lobe collapse/consolidation. Interval worsening. A linear radiopaque line is noted in right lung apex, detected by the AI, but bronchovascular markings are seen beyond it. Advise dedicated apical views to rule out a small pneumothorax. Heart and Mediastinum: Mild cardiomegaly. No mediastinal widening or masses. No hilar or mediastinal lymphadenopathy. Bony Thorax: Bony thorax appears intact without fractures or deformities. Soft Tissues: Soft tissues overlying the chest wall are unremarkable. Cardiac pacemaker in place (stable) IMPRESSION: 1. Bilateral coarse and thickened bronchovascular markings with inhomogeneous airspace opacification of bilateral lungs. Stable. 2. Bilateral pleural effusion with subsegmental lower lobe collapse/consolidation. Interval worsening. Stable. 3. AI suspects bilateral apical pneumothorax, yet they appear to be artifacts. Further evaluation by apical view is advised to rule out small pneumothorax. 4. Cardiac pacemaker in place (stable). Electronically signed by James Sahni 01-26-2025 06:41 AM
[2025-01-26 07:42] LABS: Hematocrit (blood only) 32.9 % (42.0-52.0); Hemoglobin 10.8 g/dl (14.0-18.0); Mean Corpuscular Hemoglobin 32.4 pg (25.0-34.0); Mean Corpuscular Hgb Conc 32.8 g/dL (32.0-36.0); Mean Corpuscular Volume 98.8 fL (80.0-100.0); Mean Platelet Volume 10.1 fL (9.4-12.4); Nucleated RBC # (auto) 0.36 K/uL (0.00-0.12); Nucleated RBC % (auto) 1.8 %; Platelet Count 196 K/uL (130-400); RDW Coefficient of Variation 21.2 % (11.5-14.5); RDW Standard Deviation 73.9 fL (36.4-46.3); Red Blood Count 3.33 M/uL (4.70-6.10); White Blood Count 20.16 K/ul (4.8-10.8)
[2025-01-26] MEDS ORDERED: methylPREDNISolone 125 MG/2 ML VIAL IV SCH (08:00)
[2025-01-26 08:05] LABS: BUN Creatinine Ratio 34.9 (10-20); Calcium 8.2 mg/dl (8.6-10.3); Creatinine Clr Calc Pharmacy 85.5 ml/min; Potassium 3.5 mmol/L (3.5-5.1)
[2025-01-26] MEDS: methylPREDNISolone 40 MG in SYRINGE 0 ML IV SCH (08:54)
[2025-01-26] MEDS: UMECLIDINIUM/VILANTEROL 62.5/25MCG 7 PUFFS/INHALER INH SCH (08:58)
[2025-01-26] MEDS: FLUTICASONE FUROATE 100MCG 14 PUFFS/INHALER INH SCH (08:58)
--- NOTE | 2025-01-26 09:32 | Hospitalist Progress Note ---
Date of Service January 26, 2025 Assessment & Plan (1) Sepsis: Plan: Elevated lactate, elevated WBC, possible infiltrates in the lung Although patient is afebrile, I think the lactate elevation is possibly from tissue hypoxia, steroids and leukemia However blood cultures obtained, empirically start IV cefepime (2) Influenza A: Plan: Tested positive for influenza A However, he has been having symptoms for more than a week will defer Tamiflu patient feels a whole lot better today continue supplemental oxygen wean as tolerated (3) Acute heart failure with mildly reduced ejection fraction (HFmrEF, 41-49%): Plan: Patient with a history of congestive heart failure with reduced ejection fraction. 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 Plan Admit to telemetry Full code DVT prophylaxis heparin Admission and Anticipated Discharge Date Admission Date: January 25, 2025 Subjective patient seen and examined, feels a lot better Review of Systems Review of Systems: All systems reviewed are negative, apart from the ones contained in the history. Physical Exam Physical Exam: The patient is awake, alert and oriented 3, well developed and well nourished, normocephalic and atraumatic, lying in bed and in no acute distress. HEENT--PERRL, EOMI, mucous membranes and oropharynx mildly dry Neck--supple. No JVD. No bruits. Thyroid normal, trachea midline, no adenopathy. Heart--normal S1 and S2. No murmurs, rubs or gallops. Lungs--Reduced air entry to auscultation, bibasilar crackles and wheeze Abdomen--normal bowel sounds and soft. Extremities--no cyanosis or clubbing. trace leg edema. Dermatologic--normal skin turgor, normal color, no abnormal lymph nodes, no rash. Neurologic--cranial nerves II through XII grossly intact. Rheumatologic--normal range of motion. Psychiatric--normal affect. Results & Data Results & Data Vital Signs (Past 12 Hours) Vital Signs Temp Pulse Pulse Resp BP Pulse Ox O2 Del Method 01/26/25 09:24 Nasal Cannula 01/26/25 09:22 70 01/26/25 09:10 124/75 01/26/25 08:01 16 93 Nasal Cannula 01/26/25 07:21 98.1 F 76 18 122/77 92 Nasal Cannula 01/26/25 04:26 84 24 96 01/26/25 02:02 97.7 F 78 18 103/78 95 BiPAP 01/25/25 23:38 68 23 94 01/25/25 22:58 66 16 94 Nasal Cannula 01/25/25 22:19 89 01/25/25 21:43 97.7 F 104 H 18 155/89 H 96 Nasal Cannula 01/25/25 21:37 Nasal Cannula O2 Flow Rate 01/26/25 09:24 4 01/26/25 09:22 01/26/25 09:10 01/26/25 08:01 4 01/26/25 07:21 4.0 01/26/25 04:26 4 01/26/25 02:02 01/25/25 23:38 4 01/25/25 22:58 4 01/25/25 22:19 01/25/25 21:43 4 01/25/25 21:37 4 PG Care Time/CCT Total # of Minutes Spent Total Time Spent with Patient: Total time spent is greater than 50% in coordination of care (as documented) at patient's floor/unit and/or counseling patient: Coding Level of Care Code 75839 SUB INP/OBS CARE 2/35MIN Diagnoses Sepsis A41.9 Influenza A J10.1 Acute heart failure with mildly reduced ejection fraction (HFmrEF, 41-49%) I50.21 COPD (chronic obstructive pulmonary disease) J44.9 Primary myelofibrosis D47.1 Hypertension I10 Time Spent (min) 35
--- NOTE | 2025-01-26 12:07 | Electrocardiogram Report ---
Test Reason : Blood Pressure : */* mmHG Vent. Rate : 93 BPM Atrial Rate : 93 BPM P-R Int : 146 ms QRS Dur : 128 ms QT Int : 460 ms P-R-T Axes : 2 -56 257 degrees QTcB Int : 571 ms Sinus rhythm with marked sinus arrhythmia Left axis deviation Right bundle branch block Minimal voltage criteria for LVH, may be normal variant ( R in aVL ) Septal infarct Abnormal ECG When compared with ECG of 03-Jan-2025 10:31, Significant changes have occurred Confirmed by Pablo Da Silva ([id number]) on 01/26/2025 12:06:35 PM Referred By: Confirmed By: Pablo Da Silva
[2025-01-26] MEDS: ACETAMINOPHEN 325 MG TAB PO PRN (19:27)
[2025-01-27 06:22] LABS: Hematocrit (blood only) 33.6 % (42.0-52.0); Hemoglobin 10.7 g/dl (14.0-18.0); Mean Corpuscular Hgb Conc 31.8 g/dL (32.0-36.0); Mean Corpuscular Volume 100.6 fL (80.0-100.0); Mean Platelet Volume 9.8 fL (9.4-12.4); Nucleated RBC # (auto) 0.15 K/uL (0.00-0.12); Platelet Count 136 K/uL (130-400); RDW Coefficient of Variation 21.1 % (11.5-14.5); RDW Standard Deviation 75.4 fL (36.4-46.3); Red Blood Count 3.34 M/uL (4.70-6.10); White Blood Count 14.82 K/ul (4.8-10.8)
[2025-01-27 07:00] LABS: BUN Creatinine Ratio 33.3 (10-20); Calcium 8.2 mg/dl (8.6-10.3); Creatinine Clr Calc Pharmacy 87.6 ml/min; Potassium 3.6 mmol/L (3.5-5.1)
--- NOTE | 2025-01-27 09:09 | Hospitalist Progress Note ---
Date of Service January 27, 2025 Assessment & Plan (1) Sepsis: Plan: Elevated lactate, elevated WBC, possible infiltrates in the lung on admission Although patient is afebrile, I think the lactate elevation is possibly from tissue hypoxia, steroids and leukemia However blood cultures obtained, negative so far On cefepime, deescalate prior to discharge tomorrow (2) Influenza A: Plan: Tested positive for influenza A However, he has been having symptoms for more than a week will defer Tamiflu patient feels a whole lot better today continue supplemental oxygen wean as tolerated (3) Acute heart failure with mildly reduced ejection fraction (HFmrEF, 41-49%): Plan: Patient with a history of congestive heart failure with reduced ejection fraction. 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 Plan Hopefully d/c in the next 24 -48hrs Full code DVT prophylaxis heparin Admission and Anticipated Discharge Date Admission Date: January 25, 2025 Subjective patient seen and examined, feels a lot better, SOB is better Review of Systems Review of Systems: All systems reviewed are negative, apart from the ones contained in the history. Physical Exam Physical Exam: The patient is awake, alert and oriented 3, well developed and well nourished, normocephalic and atraumatic, lying in bed and in no acute distress. HEENT--PERRL, EOMI, mucous membranes and oropharynx mildly dry Neck--supple. No JVD. No bruits. Thyroid normal, trachea midline, no adenopathy. Heart--normal S1 and S2. No murmurs, rubs or gallops. Lungs--Reduced air entry to auscultation, bibasilar crackles and wheeze Abdomen--normal bowel sounds and soft. Extremities--no cyanosis or clubbing. trace leg edema. Dermatologic--normal skin turgor, normal color, no abnormal lymph nodes, no rash. Neurologic--cranial nerves II through XII grossly intact. Rheumatologic--normal range of motion. Psychiatric--normal affect. Results & Data Results & Data Vital Signs (Past 12 Hours) Vital Signs Temp Pulse Pulse Resp BP Pulse Ox O2 Del Method 01/27/25 07:53 80 16 93 Nasal Cannula 01/27/25 03:14 97.7 F 61 16 135/81 94 Nasal Cannula 01/26/25 23:05 97.5 F L 67 18 108/69 94 Nasal Cannula 01/26/25 21:37 85 O2 Flow Rate 01/27/25 07:53 4 01/27/25 03:14 01/26/25 23:05 01/26/25 21:37 PG Care Time/CCT Total # of Minutes Spent Total Time Spent with Patient: Total time spent is greater than 50% in coordination of care (as documented) at patient's floor/unit and/or counseling patient: Coding Level of Care Code 81419 SUB INP/OBS CARE 2/35MIN Diagnoses Sepsis A41.9 Influenza A J10.1 Acute heart failure with mildly reduced ejection fraction (HFmrEF, 41-49%) I50.21 COPD (chronic obstructive pulmonary disease) J44.9 Primary myelofibrosis D47.1 Hypertension I10 Time Spent (min) 35
[2025-01-27] MEDS: predniSONE 50 MG TAB PO SCH (09:57)
[2025-01-27] MEDS: traMADol HCL 50 MG TABLET PO STA (14:05)
[2025-01-27] MEDS: DOXYCYCLINE HYCLATE 100 MG CAP PO SCH (17:49)
[2025-01-28 04:38] VITALS: TEMP 97.9
[2025-01-28 06:26] LABS: Hemoglobin 10.8 g/dl (14.0-18.0); Mean Corpuscular Hgb Conc 31.8 g/dL (32.0-36.0); Mean Corpuscular Volume 100.6 fL (80.0-100.0); Mean Platelet Volume 10.8 fL (9.4-12.4); Nucleated RBC # (auto) 0.13 K/uL (0.00-0.12); Nucleated RBC % (auto) 0.7 %; Platelet Count 163 K/uL (130-400); RDW Coefficient of Variation 21.5 % (11.5-14.5); Red Blood Count 3.38 M/uL (4.70-6.10); White Blood Count 18.18 K/ul (4.8-10.8)
[2025-01-28 06:46] LABS: BUN Creatinine Ratio 40.5 (10-20); Calcium 8.7 mg/dl (8.6-10.3); Creatinine Clr Calc Pharmacy 84.5 ml/min; Potassium 4.1 mmol/L (3.5-5.1)
[2025-01-28 11:40] VITALS: BP 120/64
[2025-01-28 15:14] VITALS: RESP 16; O2SAT 91
--- NOTE | 2025-01-28 15:43 | Discharge Summary ---
Discharge Summary Date of Service January 28, 2025 Principal Dx & Hospital Course #1 = Principal Diagnosis (1) CAD (coronary artery disease): (2) Acute heart failure with mildly reduced ejection fraction (HFmrEF, 41-49%): (3) Hypertension: (4) Influenza A: (5) COPD exacerbation: (6) Sick sinus syndrome: (7) Primary myelofibrosis: Plan 69-year-old male with past medical history of systolic heart failure with moderately reduced ejection fraction of 40%, coronary disease, COPD, hypertension, primary myelofibrosis who presented to the hospital on 01/25/2025 with shortness of breath and increasing leg swelling and flulike symptoms for over a week. Patient required BiPAP on admission for severe shortness of breath and hypoxemia had a chest x-ray done which showed vascular congestion with elevated white count, elevated lactate and he tested positive for influenza and was admitted to the hospitalist service #Sepsis, present on admission likely from influenza A pneumonia #Influenza A pneumonia #Acute exacerbation of COPD #Acute hypoxic respiratory failure likely combination of acute CHF and COPD exacerbation: Improved Patient initially required BiPAP He was treated with nebulizers, IV Lasix, IV steroids and IV cefepime Blood cultures have been negative He was transitioned from IV cefepime to oral doxycycline He was transitioned from BiPAP to nasal cannula and is currently saturating well on room air He will continue with his home inhalers He has been transitioned from IV Solu-Medrol to oral prednisone taper He was not initiated on Tamiflu by admitting team because symptoms had been p resent for a week He will follow-up with his PCP as outpatient #Acute on chronic systolic congestive heart failure with EF of 40% #Coronary artery disease #Essential hypertension Outpatient [facility] Dr. Sol Patient also has a pacemaker He was diuresed with IV Lasix 40 mg twice daily His weight has not come down from 91 kg to 80 kg since admission He is no longer requiring BiPAP or oxygen and is saturating well on room air He will continue with SHANITA inhibitor, Norvasc, metoprolol and aspirin His leg edema has resolved His lung exam was clear and he saturating well on room air I have transitioned him from IV Lasix 40 mg twice daily to oral torsemide 20 mg daily Patient has been given written instructions on CHF Low-sodium diet Outpatient follow-up with cardiology on discharge Patient also follows up with kidney specialist Dr. Owens: Have advised him to follow-up with nephrology to monitor his renal function on torsemide #Primary myelofibrosis Outpatient oncologist Dr. Andrews White count is elevated: Likely also from steroids Patient is afebrile and clinically stable Patient advised to follow-up with Dr. Andrews as outpatient. It appears that patient has also been [facility] by Dr. Andrews Patient seen and examined today. at bedside. He is ambulating without any issues. Patient is medically stable for discharge after removal of Askew catheter today. I have gone over the discharge care plan, medications and follow-up with the patient and his who is at his bedside in great detail and answered all the questions. This discharge took greater than 30 minutes to coordinate Admission HPI Per Admitting Provider This is a 69-year-old male with a history of heart failure with reduced ejection fraction, COPD, hypertension, primary myelofibrosis, leukemia who presents to the hospital today with complaints of worsening shortness of breath and leg swelling. According to the from home most of the history was obtained, patient has been taking his prescribed medicine as recommended however over the past couple of days he got more short of breath even when his Lasix was increased. Upon arrival at emergency department he was in respiratory distress and was just a few minutes from being intubated. However he was put on BiPAP and did well. Vital signs, blood pressure 158/100, chest x-ray was done showed evidence of pulmonary congestion WBC was 19,000 serum lactate 2.1 troponin 59.5, BNP 3000. Patient was started on IV Lasix, blood cultures already obtained, will be admitted to the hospital further management. Discharge Exam General: No acute distress Psych: Awake and alert HEENT: Anicteric sclera, moist oral mucosa CVS: Regular rate and rhythm Lungs: Bilateral air entry, no wheezing noted Abdomen: Soft, nontender, no rebound, no guarding Ext: No lower extremity edema, no calf tenderness, chronic skin changes Neuro: No focal motor deficits noted : Indwelling Askew catheter in place, clear urine noted. Askew catheter to be removed prior to discharge Discharge Plan Discharge Items Patient Disposition: Home - Self-Care Reason For Visit: CHF EXACERBATION Discharge Diagnosis: Acute on chronic systolic congestive heart failure with EF of 40% Influenza A infection/pneumonia Acute exacerbation of COPD Primary myelofibrosis Essential hypertension Condition on Discharge: Good Activity: Resume your previous activity Non-emergency contact: Primary Care Provider Call non-emergency contact if: you have any medication questions, your symptoms worsen and you have a fever Follow-up/Referrals: Prakash Owens MD [Physician] - Jurgen Sol MD [Physician] - Sarika Lin DO [Primary Care Provider] - Anshul Andrews MD [Physician] - Diet: Heart Healthy and Low Sodium (2gm) Addtl Attending Provider Instructions: DISCHARGE INSTRUCTION TO PATIENT/FAMILY: Follow-up with your primary care provider within 1 week regarding: Posthospital discharge, medication review, medication refills and follow-up on all your medical problems Please take all your discharge medications, discharge information and discharge instructions to all your doctors appointments. Avoid all NSAIDs including ibuprofen, Motrin, Advil, Aleve, naproxen, meloxicam, Toradol, diclofenac Labs through PCP in 1 week: CBC, CMP, MG, HgBA1C You have congestive heart failure. Your ejection fraction is 40%. You are tom brown with IV Lasix 40 mg twice daily. You have been transitioned to oral diuretic torsemide 20 mg daily. Please follow-up with your [facility] as outpatient regarding heart failure. Please weigh yourself daily. If your weight goes up by greater than 2 pounds in 24 hours or you are developing shortness of breath or leg edema, please take an extra tablet of torsemide 20 mg daily in addition to your daily dose and call your primary care provider/[facility] for further instructions. see prednisone taper instructions: Take 4 tablets (40 mg) daily for 2 days starting 01/29/2025, then 3 tablets (30 mg) daily for 2 days, then 2 tablets (20 mg) daily for 2 days, then 1 tablet (10 mg) daily for 2 days and stop Follow-up with your outpatient oncologist Dr. Andrews and also your outpatient kidney specialist Dr. Owens Pending Studies at Discharge: No Stand-Alone Forms: My DermApproved, Smoking Cessation Medications and DC Order Prescriptions: New doxycycline hyclate 100 mg Capsule 100 mg PO BIDM Qty: 10 0RF torsemide 20 mg tablet 20 mg PO DAILY Qty: 30 0RF prednisone 10 mg tablet 10 mg PO DIRECTED Qty: 20 0RF Rx Instructions: see taper instructions: Take 4 tablets (40 mg) daily for 2 days, then 3 tablets (30 mg) daily for 2 days, then 2 tablets (20 mg) daily for 2 days, then 1 tablet (10 mg) daily for 2 days and stop Continued albuterol sulfate 90 mcg/actuation HFA aerosol inhaler 2 puff inhalation QID Qty: 8.5 2RF metoprolol succinate 100 mg tablet extended release 24 hr 100 mg PO BID Qty: 180 3RF nitroglycerin [Nitrostat] 0.4 mg tablet, sublingual 0.4 mg Sublingual UD PRN (Reason: Chest Pain) Qty: 25 3RF Trelegy Ellipta 100-62.5-25 mcg blister with device 1 inh inhalation DAILY Qty: 28 2RF lorazepam 0.5 mg tablet 0.5 mg PO BID PRN (Reason: anxiety) Qty: 28 0RF aspirin 81 mg Tablet,Delayed Release (Dr/Ec) 81 mg PO HS amlodipine-benazepril 10-40 mg capsule 1 cap PO QAM zolpidem 5 mg tablet 5 mg PO UD Rx Instructions: Take when you arrive to the sleep lab, prior to sleep study. escitalopram oxalate [Lexapro] 10 mg tablet 5 - 10 mg PO DAILY Rx Instructions: start with 1/2 tablet daily for 1-2 weeks, then increase to one tab daily. Discontinued furosemide [Lasix] 20 mg tablet 20 mg PO DAILY Qty: 90 3RF Discharge Orders: Discharge Order- CHF (Routine); Ordered 01/28/25 Ordered By: Cam Teran Admission Data Admit Date/Time: 01/25/25 17:41 Attending Provider: Cam Teran Admit Provider: Jan Du Primary Care Provider: Sarika Lin Other Providers: Jan Du Hospital Stay Data Consultations 01/25/25 17:23 ED Decision to Admit Stat Procedures Performed Laboratory Results - last 48 hr 01/27/25 01/28/25 05:40 05:50 WBC 14.82 H 18.18 H RBC 3.34 L 3.38 L Hgb 10.7 L 10.8 L Hct 33.6 L 34.0 L MCV 100.6 H 100.6 H MCH 32.0 32.0 MCHC 31.8 L 31.8 L RDW Std Deviation 75.4 H 76.0 H RDW Coeff of Dominique 21.1 H 21.5 H Plt Count 136 163 MPV 9.8 10.8 Absolute Nucleated RBC 0.15 H 0.13 H Nucleated RBC % (auto) 1.0 0.7 Sodium 136 133 L Potassium 3.6 4.1 Chloride 98 95 L Carbon Dioxide 32 33 H Anion Gap 6 5 BUN 27 H 34 H Creatinine 0.81 0.84 Est Cr Clr Drug Dosing 87.6 84.5 eGFR 94.85 93.81 BUN/Creatinine Ratio 33.3 H 40.5 H Glucose 117 H 123 H Calcium 8.2 L 8.7 Diagnostic Imagining Performed Chest X-Ray 01/25/25 16:02 EXAM: XR chest 1V portable CLINICAL HISTORY: Dyspnea. TECHNIQUE: An X-ray image of the chest is obtained in AP projection. COMPARISON: 01/23/2025 X-ray. FINDINGS: Pulmonary Parenchyma: Bilateral coarse and thickened bronchovascular markings with inhomogeneous airspace opacification of bilateral lungs. Bilateral pleural effusion with subsegmental lower lobe collapse/consolidation. Interval worsening. A linear radiopaque line is noted in right lung apex, detected by the AI, but bronchovascular markings are seen beyond it. Advise dedicated apical views to rule out a small pneumothorax. Heart and Mediastinum: Mild cardiomegaly. No mediastinal widening or masses. No hilar or mediastinal lymphadenopathy. Bony Thorax: Bony thorax appears intact without fractures or deformities. Soft Tissues: Soft tissues overlying the chest wall are unremarkable. Cardiac pacemaker in place (stable) IMPRESSION: 1. Bilateral coarse and thickened bronchovascular markings with inhomogeneous airspace opacification of bilateral lungs. Stable. 2. Bilateral pleural effusion with subsegmental lower lobe collapse/consolidation. Interval worsening. Stable. 3. AI suspects bilateral apical pneumothorax, yet they appear to be artifacts. Further evaluation by apical view is advised to rule out small pneumothorax. 4. Cardiac pacemaker in place (stable). Electronically signed by James Sahni 01-26-2025 06:41 AM Pending Results Patient Have Any Pending Studies at Discharge: No Discharge Instructions Given to Patient (Per Discharging Provider) DISCHARGE INSTRUCTION TO PATIENT/FAMILY: Follow-up with your primary care provider within 1 week regarding: Posthospital discharge, medication review, medication refills and follow-up on all your medical problems Please take all your discharge medications, discharge information and discharge instructions to all your doctors appointments. Avoid all NSAIDs including ibuprofen, Motrin, Advil, Aleve, naproxen, meloxicam, Toradol, diclofenac Labs through PCP in 1 week: CBC, CMP, MG, HgBA1C You have congestive heart failure. Your ejection fraction is 40%. You are aditya ated with IV Lasix 40 mg twice daily. You have been transitioned to oral diuretic torsemide 20 mg daily. Please follow-up with your [facility] as outpatient regarding heart failure. Please weigh yourself daily. If your weight goes up by greater than 2 pounds in 24 hours or you are developing shortness of breath or leg edema, please take an extra tablet of torsemide 20 mg daily in addition to your daily dose and call your primary care provider/[facility] for further instructions. see prednisone taper instructions: Take 4 tablets (40 mg) daily for 2 days starting 01/29/2025, then 3 tablets (30 mg) daily for 2 days, then 2 tablets (20 mg) daily for 2 days, then 1 tablet (10 mg) daily for 2 days and stop Follow-up with your outpatient oncologist Dr. Andrews and also your outpatient kidney specialist Dr. Owens Total Time Total Time Spent Total Time Spent (In Minutes): 40 minutes Coding Level of Care Code 85334 INP/OBS DISCH >30 MIN Diagnoses Coronary artery disease involving tangirnaq coronary artery of tangirnaq heart without angina pectoris I25.10 Coronary Disease-Associated Artery/Lesion type: tangirnaq artery [place] vs. transplanted heart: tangirnaq heart Associated angina: without angina Acute heart failure with mildly reduced ejection fraction (HFmrEF, 41-49%) I50.21 Hypertension I10 Influenza A J10.1 COPD exacerbation J44.1 Sick sinus syndrome I49.5 Primary myelofibrosis D47.1 Time Spent (min) 40
[2025-01-28 15:47] VITALS: PULSE 75
== END 2025-01-28 16:39 | disposition home or self-care (01) | DRG 871 ==
LOC: SUATTDRO → ED 15:58 → SUATTDRO 17:41 → 4W 17:41

== ENCOUNTER 2025-06-02 17:26 | Inpatient (IN) ==
--- NOTE | 2025-06-02 18:03 | Emergency Department Note ---
Impression & Plan Intractable abdominal pain, Enteritis, Pseudohyponatremia ED Provider Note NAME: GILMA AVILA AGE: 69 SEX: M : 1955 ARRIVES VIA: Ambulance INFORMANT: Patient, ED PROVIDER(S): Yovani Starkey DO CHIEF COMPLAINT: abdominal pain HPI: This is a 69-year-old male with the PMHx of SSS s/p PPM, HTN, HLD, GERD, COPD, CHF, AAA, PAD and myelofibrosis disorder following with Dr. Andrews presenting to [facility] for further evaluation of severe abdominal pain. Patient is accompanied by his who provides additional history. Patient states that he has had severe abdominal pain over the last few days. Recently evaluated urgency department with labs and CT scan. Patient was discharged with p.o. oxycodone for pain control. 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 Patient reports significant decreases in p.o. intake and he is unsure when his last bowel movement was. He states that he has had mild nausea and dry heaving. Patient reports his pain is uncontrolled. Patient states that he is not recovering from "leukemia and on the ending stages." They deny fever or chills. No cough or congestion. Denies chest pain or palpitations. No shortness of breath. No urinary complaints. Patient denies recent changes in medications or OTC supplements. Patient offers no other complaints, today. ADDITIONAL HISTORY OBTAINED: Per HPI Chronic Medical/Social Conditions Affecting Care: Per HPI PAST MEDICAL HISTORY: See Below PAST SURGICAL HISTORY: See Below FAMILY HISTORY: See Below SOCIAL HISTORY: See Below HOME MEDICATIONS: See Below ALLERGIES: See Below VITALS: See Below PHYSICAL EXAMINATION: GENERAL: Sitting up in bed, alert, well appearing, well nourished, no distress, non-toxic EYE EXAM: normal conjunctiva. PERRL and EOM's grossly intact. OROPHARYNX: no exudate, no erythema, lips, buccal mucosa, and tongue normal and mucous membranes are moist NECK: supple, no nuchal rigidity, no adenopathy, non-tender LUNGS: Clear to auscultation. Normal chest wall mechanics HEART: no murmurs, regular rate, regular rhythm ABDOMEN: abdomen soft, diffuse TTP with voluntary guarding SKIN: no rashes and no bruising UPPER EXTREMITIES: upper extremities are grossly normal. LOWER EXTREMITIES: No pitting edema. NEURO EXAM: Normal sensorium, GCS 15, normal speech MEDICAL DECISION MAKING: Differential diagnoses includes but not limited to splenic hematoma, splenic rupture, cancer related pain, appendicitis, bowel obstruction, diverticulitis, malignancy, nephrolithiasis, gastroenteritis, ACS, PNA, pancreatitis, biliary disease, UTI, esophageal reflux, gastritis, IBD In summary, this is a 69 year old male who presented with diffuse abdominal pain. Differential as above. Nursing notes and pertinent past medical records reviewed. Vital signs reviewed and the patient is afebrile and HDS. History and presentation revealed ongoing abdominal pain. Patient was recently evaluated in the emergency department. Patient had a CT as well as labs. Patient was discharged on oxycodone for breakthrough pain. Patient has been compliant with his home. Still having diffuse pain. Unable to sleep or tolerate p.o. intake. Pain in our noted to have splenomegaly in the setting of his lymphoproliferative disorder. Physical examination revealed as above. As a result of my initial evaluation, we will plan for pain control and further workup with repeat labs and imaging. Diagnostics interpreted by me include EKG and cardiac monitoring as listed below: -Cardiac Monitoring: An order was placed for continuous cardiac monitoring. The monitor shows a rate of 90s with regular rhythm. -ECG: EKG independently interpreted by me as atrial paced rhythm at 98 bpm. There is left axis deviation and a right bundle branch block. No significant ST segment changes suggest STEMI. Patient completed laboratory studies and imaging. Results independently interpreted by me are mild anemia with thrombocytopenia. Anemia is improved from prior. Thrombocytopenia slightly worsening. Leukocytosis has increased from yesterday. Lactate was within normal limits. The patient was managed with multiple doses of IV opiates for pain control. He likely has pseudohyponatremia secondary to hyperglycemia. Minimal elevation in total bilirubin at 1.4. Troponin was mildly elevated without significant EKG changes to suggest STEMI. Patient has not had symptoms of angina. CT abdomen/pelvis angiogram reviewed by me shows significant vascular stenoses but no free fluid or evidence of splenic rupture/hematoma. He does have evidence of enteritis. Favor that this is viral enteritis rather than ischemic given continued. Patient struggling at home with p.o. intake as well as pain control. I had an extensive discussion with the patient as well as his at the bedside at 2030. They feel unsafe going home given poor p.o. intake and pain control which I feel is reasonable. Patient was discussed with the [facility] hospitalist group and Dr. Ferro accepted for admission. Ultimately, the decision was made to admit the patient for intractable abdominal pain as well as failure of PO intake. Suspect he is likely struggling with his hematology disorder. He seems to have a poor outlook based on his history reported. He may benefit from discussion with psychiatry or palliative care while admitted. I discussed the case with the hospitalist service via [employer] and they are agreeable to admit the patient to their services. Based on the above, including the patient's age, coexisting illnesses, labs, imaging, and exam findings the decision to treat as an inpatient. I discussed the patient with the hospitalist team who recommended admission to their services. They received the medications, treatments, interventions indicated above and their condition remained stable. I discussed my findings with the patient and their family and they understand and agree with the treatment plan. All patient / family questions were answered to their satisfaction. Consults/Care Managements Discussions: Per [facility] [place] [facility] treatment provided: See above Procedures:none Critical Care: None The chart was completed utilizing [employer] Speech voice recognition software. Grammatical errors, random word insertions, pronoun errors, and incomplete sentences are an occasional consequence of this system due to software limitations, ambient noise, and hardware issues. Any formal questions or concerns about the content, text, or information contained within the body of this dictation should be directly addressed to the physician for clarification. Past Med/Surg History Problem List (Updated 06/02/25 @ 23:58 by Yovani Starkey DO) Pseudohyponatremia (Acute) Enteritis (Acute) Intractable abdominal pain (Acute) Myelofibrosis Stenosis of artery (Acute) Aneurysm artery, iliac (Acute) Constipation (Acute) Abdominal pain (Acute) Influenza A Sepsis Leukocytosis (Acute) Elevated troponin (Acute) COPD exacerbation (Acute) CHF (congestive heart failure) (Acute) Respiratory failure (Acute) Anxiety COPD (chronic obstructive pulmonary disease) Post-viral reactive airway disease Primary myelofibrosis Hyponatremia Vitamin D deficiency Hypertension Proteinuria Parakeratosis (Chronic) Left renal artery stenosis (Acute) Former smoker (Acute) 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 (Acute) Pacemaker Incisional hernia Sick sinus syndrome (Chronic 2005) Meditronic Dual chamber pacemaker placed 01/02/2006 Abdominal aortic aneurysm S/P REPAIR 12 YEARS PRIOR, [facility] Hyperlipidemia (Chronic) HTN (hypertension) (Chronic) GERD (gastroesophageal reflux disease) (Acute) Medical History Apneic episode Acute heart failure with mildly reduced ejection fraction (HFmrEF, 41-49%) Alcohol use disorder CAD (coronary artery disease) (1998) Cardiac Catheterization revealed 100% RCA occlusion with well developed collaterals with stenosis of obtuse marginal and left circumflex with stent placement. Rectal bleeding Bailey esophagus Hypertension Surgical History History of cataract surgery LEFT History of colonoscopy History of esophagogastroduodenoscopy (EGD) History of AAA (abdominal aortic aneurysm) repair History of surgery LEFT HAND REATTACHED AFTER TRAUMA (30+YEARS AGO). PT HAS SOME NUMBNESS AND TINGLING BUT HAS FULL FUNCTION. History of surgery REPAIR OF DEVIATED SEPTUM History of herniorrhaphy MULTIPLE, INCLUDING UMBILICAL History of cardiac cath ANGIOPLASTY X2, STENT PLACEMENT (20 YEARS AGO) Family History Father Diabetes Myocardial infarction Hypertension Mother Diabetes Hypertension Gall bladder disease Other No family history of adverse response to anesthesia Denies family history of Ovarian cancer Prostate cancer Breast cancer Lung cancer Colorectal cancer Social History Smoking Status: Former smoker Tobacco Type: Cigarettes Age Started Using Tobacco: 16; Age Quit Using Tobacco: 46; packs per day: 1; Cigarettes Per Day: quit 15 years; Smoking End Date: 15 years ago; Second Hand Exposure: No; Do You Dip or Chew Tobacco: No; Hx Alcohol Use: Yes Alcohol type: beer Hx Substance Use: Yes Last Used Substance: Days (ago) Last Used Substance Other:: 5 days ago Preferred Language: Telugu Communication Ability: Effective Visual Impairment: Limited Hearing Ability: Normal Community Health Nursing Director Required: No Beliefs That Will Affect Care: None marital status: Current Living Situation: Spouse current occupational status: retired How many Children do You have Comment: 1 adult step son Feels Safe at Home: Yes Safety Concerns: Feels Safe At This Time Childhood Exposure to Second-Hand Smoke: No Diet: other Diet Comment: Mediterranean diet caffeine: Yes during the past year weight has: decreased > 10 lbs Dental Care, Regularly: No Physical Activity Frequency: Does not Exercise Seatbelt Use: always Sunscreen Use: No Do you think of yourself as: straight/heterosexual Gender Identity: Male Assistive Devices: Denture - Upper Allergies Allergies Allergy/AdvReac Type Severity Reaction Status Date / Time escitalopram [From Lexapro] AdvReac Intermediate BECAME Verified 06/02/25 19:58 MORE DEPRESSED Home Meds Home Medications Medication Instructions Recorded Confirmed aspirin 81 mg tablet,delayed 81 mg PO HS 01/03/25 06/02/25 release ruxolitinib 5 mg tablet (Jakafi) 5 mg PO BID 05/30/25 06/02/25 albuterol sulfate 90 mcg/actuation 2 puff inhalation QID PRN 06/02/25 06/02/25 aerosol inhaler Shortness Of Breath Or Wheezing baclofen 10 mg tablet 10 mg PO TID PRN MUSCLE SPASMS 06/02/25 06/02/25 Previous Rx's Medication Instructions Recorded nitroglycerin 0.4 mg sublingual 0.4 mg sublingual UD PRN Chest 06/26/24 tablet (Nitrostat) Pain #25 tabs metoprolol succinate 100 mg 100 mg PO BID #180 tabs 01/14/25 tablet,extended release 24 hr torsemide 20 mg tablet 20 mg PO DAILY #90 tabs 02/11/25 amlodipine 10 mg-benazepril 40 mg 1 cap PO QAM #90 caps 03/24/25 capsule ondansetron 4 mg disintegrating 4 mg PO Q8H PRN nausea and 06/01/25 tablet vomiting 5 days #15 tabs Results & Data (ED) Vital Signs Vital Signs - 24 hr 06/02/25 17:39 06/02/25 17:49 06/02/25 18:06 Temperature 36.8 C Temperature Source Oral Pulse Rate 77 Pulse Rate [Apical] 81 Respiratory Rate 23 22 Respiratory Effort / Characteristics Respiratory Depth Respiratory Pattern Blood Pressure [Right Arm] 113/52 L Blood Pressure Mean [Right Arm] 72 Blood Pressure Position [Right Arm] Pulse Oximetry 99 99 Oxygen Delivery Method Room Air Room Air Sepsis Recent Fever Within 48 Hours No Sepsis New/Unexplained Change in Mental Status N/A Sepsis Action Taken by Nursing No Action Required 06/02/25 18:17 06/02/25 19:00 06/02/25 20:00 Temperature Temperature Source Pulse Rate 88 Pulse Rate [Apical] 68 68 Respiratory Rate 16 18 Respiratory Effort / Characteristics Non-Labored Spontaneous Non-Labored Spontaneous Respiratory Depth Normal Respiratory Pattern Regular Regular Blood Pressure [Right Arm] 129/68 125/68 Blood Pressure Mean [Right Arm] 88 87 Blood Pressure Position [Right Arm] Lying Lying Pulse Oximetry 100 96 Oxygen Delivery Method Room Air Room Air Sepsis Recent Fever Within 48 Hours Sepsis New/Unexplained Change in Mental Status Sepsis Action Taken by Nursing 06/02/25 21:00 Temperature Temperature Source Pulse Rate Pulse Rate [Apical] 75 Respiratory Rate 18 Respiratory Effort / Characteristics Non-Labored Spontaneous Respiratory Depth Respiratory Pattern Regular Blood Pressure [Right Arm] 140/66 Blood Pressure Mean [Right Arm] 90 Blood Pressure Position [Right Arm] Lying Pulse Oximetry 100 Oxygen Delivery Method Room Air Sepsis Recent Fever Within 48 Hours Sepsis New/Unexplained Change in Mental Status Sepsis Action Taken by Nursing Laboratory Data 06/02/25 17:41 06/02/25 17:41 Lab Results 06/02/25 06/02/25 06/02/25 Range/Units 17:41 18:07 19:53 WBC 14.22 H (4.8-10.8) K/ul RBC 2.89 L (4.70-6.10) M/uL Hgb 9.4 L (14.0-18.0) g/dl Hct 29.8 L (42.0-52.0) % MCV 103.1 H (80.0-100.0) fL MCH 32.5 (25.0-34.0) pg MCHC 31.5 L (32.0-36.0) g/dL RDW Std Deviation 99.2 H (36.4-46.3) fL RDW Coeff of Dominique 26.6 H (11.5-14.5) % Plt Count 58 L (130-400) K/uL MPV 9.9 (9.4-12.4) fL Absolute Nucleated RBC 0.37 H (0.00-0.12) K/uL Nucleated RBC % (auto) 2.6 % Neutrophils % (Manual) 61 % Lymphocytes % (Manual) 9 % Monocytes % (Manual) 7 % Eosinophils % (Manual) 2 % Basophils % (Manual) 5 % Metamyelocytes % (Man) 7 % Myelocytes % (Man) 5 % Promyelocytes % (Man) 2 % Blast Cells % (Manual) 2 % Neutrophils # (Manual) 8.67 H (1.40-6.50) K/uL Total Absolute Neuts 8.67 H (1.4-6.5) K/uL Lymphocytes # (Manual) 1.28 (1.2-3.4) K/uL Total Abs Lymphocytes 1.28 (1.2-3.4) K/uL Monocytes # (Manual) 1.00 H (0.11-0.59) K/uL Eosinophils # (Manual) 0.28 (0-0.50) K/uL Basophils # (Manual) 0.71 H (0-0.2) K/uL Metamyelocytes # (Man) 1.00 H (0-0) K/uL Myelocytes # (Manual) 0.71 H (0-0) K/uL Promyelocytes # (Man) 0.28 H (0-0) K/uL Blast Cells # (Man) 0.28 H (0-0) K/uL Anisocytosis Present Tear Drop Cells 1+ Ovalocytes 1+ Stomatocytes 1+ Sodium 132 L (136-145) mmol/L Potassium 4.3 (3.5-5.1) mmol/L Chloride 100 (98-107) mmol/L Carbon Dioxide 18 L (21-32) mmol/L Anion Gap 14 H (3-11) BUN 23 (6-23) mg/dl Creatinine 1.29 (0.6-1.4) mg/dl Est Cr Clr Drug Dosing 56.8 ml/min eGFR 59.65 BUN/Creatinine Ratio 17.8 (10-20) Glucose 164 H (70-99(Fasting)) mg/dl Lactate 1.8 (0.4-2.0) mmol/L Calcium 8.6 (8.6-10.3) mg/dl Phosphorus 3.8 (2.5-4.9) mg/dl Magnesium 1.8 (1.7-2.4) mg/dl Total Bilirubin 1.4 H (0.2-1.0) mg/dl AST 18 (13-39) U/L ALT 12 (7-52) U/L Alkaline Phosphatase 55 (34-104) U/L Troponin I High Sens 21.7 H 20.7 H (0-20) pg/ml Total Protein 6.6 (6.0-8.3) gm/dl Albumin 4.0 (3.4-5.0) gm/dl Globulin 2.6 (2.5-4.0) gm/dl Albumin/Globulin Ratio 1.5 (0.9-2) Lipase 16 (11-82) U/L Administered Medications Hydromorphone HCl (Hydromorphone Inj 0.5 Mg/0.5 Ml Syr) 0.5 mg IV Q3H PRN PRN Reason: Pain (6,7,8,9,10) Stop: 06/16/25 22:49 Last Admin: 06/02/25 23:04 Dose: 0.5 mg Documented By: GALINDO Lactated Ringer's (Lr) 1,000 mls @ 100 mls/hr IV .Q10H LIZBETH Stop: 06/03/25 18:49 Last Admin: 06/02/25 23:18 Dose: 100 mls/hr Documented By: GALINDO Discontinued Medications Hydromorphone HCl (Hydromorphone Inj 0.5 Mg/0.5 Ml Syr) 0.5 mg IV NOW STA Stop: 06/02/25 18:42 Last Admin: 06/02/25 18:48 Dose: 0.5 mg Documented By: RACH Hydromorphone HCl (Hydromorphone Inj 0.5 Mg/0.5 Ml Syr) 0.5 mg IV NOW STA Stop: 06/02/25 23:33 Last Admin: 06/02/25 23:53 Dose: 0.5 mg Documented By: GALINDO Sodium Chloride (Nss) 500 mls @ 999 mls/hr IV .Q31M STA Stop: 06/02/25 18:25 Last Infusion: 06/02/25 19:03 Dose: Infused Documented By: Admin: 06/02/25 18:08 Dose: 999 mls/hr Documented By: RACH Ioversol (Optiray 320 125ml) 115 ml IV ONCE ONE Stop: 06/02/25 19:26 Last Admin: 06/02/25 19:25 Dose: 115 ml Documented By: ESTEFANI Morphine Sulfate (Morphine Sulfate 4 Mg/Ml 1 Ml Carp\\Vial) 6 mg IV NOW STA Stop: 06/02/25 17:56 Last Admin: 06/02/25 18:04 Dose: 6 mg Documented By: RACH Ondansetron HCl (Ondansetron Inj 2 Mg/Ml 2 Ml Vial) 4 mg IV NOW STA Stop: 06/02/25 17:56 Last Admin: 06/02/25 20:55 Dose: Not Given Documented By: MARGARET Imaging Data Radiologist's Impression: Abdomen/Pelvis CTA 06/02/25 17:55 CT ABDOMEN and PELVIS with INTRAVENOUS CONTRAST HISTORY: Abdominal pain TECHNIQUE: CT angiogram abdomen and pelvis with contrast. IV CONTRAST: 100 mL of OMNIPAQUE 300 ENTERIC CONTRAST: Not Given COMPARISON: CT angiogram abdomen and pelvis with a previous FINDINGS: LOWER CHEST: Mild cardiomegaly. Coronary and valvular calcifications LIVER: Unchanged hepatic hypodensities are probably cysts or hemangiomas GALLBLADDER/BILIARY: Cholelithiasis without evidence of cholecystitis. Gallbladder. No abnormal biliary dilatation. SPLEEN: Unremarkable. PANCREAS: Again seen is a small cystic change in the tail of the pancreas measuring 1.1 cm, likely an IPMN. ADRENALS: Unremarkable. KIDNEYS: Cortical cysts. No stones or hydronephrosis identified. PERITONEUM/RETROPERITONEUM. No lymphadenopathy by size criteria. 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 Extensive atherosclerosis with severe stenoses of the celiac trunk, the SMA, the renal arteries and the RO. The internal iliac arteries are severely stenosed again. Multifocal stenoses of the left external iliac and partially visualized femoral arteries GASTROINTESTINAL: No obstruction. Normal appendix. Colonic diverticulosis without evidence of diverticulitis. REPRODUCTIVE: Normal-sized prostate gland with coarse calcifications URINARY BLADDER: Opacified by the excreted contrast. Wall thickening. BONES: No acute findings. Well-demarcated lucent change in the left femoral neck probably representing a benign fibrocystic change. There is thinning of the femoral neck cortex superiorly. IMPRESSION: Redemonstration of extensive atherosclerosis of the abdominal aortic vasculature with aneurysmal changes as above. These findings are not appreciably changed from CTA examination performed 1 day previously. No acute aortic process identified. Mild inflammatory changes are again seen involving the loops of small bowel suggesting enteritis. The etiology may be infectious/inflammatory though ischemic etiology may be a consideration as well given the extensive atherosclerosis. Mild wall thickening of the urinary bladder may be due to cystitis Well-demarcated lucent change in the left femoral neck probably representing a benign fibrocystic change. There is thinning of the femoral neck cortex superiorly. This raises risk for a future pathologic fracture in this area. Orthopedic consultation advised Electronically signed by Storm Santos 06-02-2025 8:13 PM Discharge Plan Visit Data Chief Complaint: Abdominal Pain ED Provider: Yovani Starkey Discharge Problem: Intractable abdominal pain, Enteritis, Pseudohyponatremia Patient Disposition: Admitted As Inpatient Condition: Fair Discharge Instructions Interventions: ED Discharge Assessment Last Done: 06/02/25 22:47
[2025-06-02] MEDS: MoRPHine SULFATE 4 MG/ML 1 ML CARP\\VIAL IV STA (18:04)
[2025-06-02] MEDS: SODIUM CHLORIDE 0.9% 500 ML IV STA (18:08)
[2025-06-02 18:21] LABS: Hematocrit (blood only) 29.8 % (42.0-52.0); Hemoglobin 9.4 g/dl (14.0-18.0); Mean Corpuscular Hemoglobin 32.5 pg (25.0-34.0); Mean Corpuscular Volume 103.1 fL (80.0-100.0); Platelet Count 58 K/uL (130-400); RDW Standard Deviation 99.2 fL (36.4-46.3); Red Blood Count 2.89 M/uL (4.70-6.10); White Blood Count 14.22 K/ul (4.8-10.8)
[2025-06-02 18:33] LABS: Alanine Aminotransferase 12.0 U/L (7-52); Albumin Globulin Ratio 1.5 (0.9-2); Alkaline Phosphatase 55.0 U/L (34-104); Anion Gap 14.0 (3-11); Bilirubin,Total 1.4 mg/dl (0.2-1.0); Blood Urea Nitrogen 23.0 mg/dl (6-23); Calcium 8.6 mg/dl (8.6-10.3); Carbon Dioxide 18.0 mmol/L (21-32); Chloride 100.0 mmol/L (98-107); Creatinine Clr Calc Pharmacy 56.8 ml/min; Globulin 2.6 gm/dl (2.5-4.0); Glucose 164.0 mg/dl (70-99(Fasting)); Lipase 16.0 U/L (11-82); Potassium 4.3 mmol/L (3.5-5.1); Sodium 132.0 mmol/L (136-145); Total Protein 6.6 gm/dl (6.0-8.3)
[2025-06-02 18:40] LABS: ALC (manual) 1.28 K/uL (1.2-3.4); ANC (manual) 8.67 K/uL (1.4-6.5); Anisocytosis Present; Blast # (manual) 0.28 K/uL (0-0); Ovalocytes 1+; Stomatocytes 1+; Tear Drop Cells 1+
[2025-06-02] MEDS: HYDROmorphone INJ 0.5 MG/0.5 ML SYR IV STA ×2 (18:48→23:53)
[2025-06-02] MEDS: OPTIRAY 320 125ml IV ONE (19:25)
--- NOTE | 2025-06-02 20:14 | CT Scan Report ---
CT ABDOMEN and PELVIS with INTRAVENOUS CONTRAST HISTORY: Abdominal pain TECHNIQUE: CT angiogram abdomen and pelvis with contrast. IV CONTRAST: 100 mL of OMNIPAQUE 300 ENTERIC CONTRAST: Not Given COMPARISON: CT angiogram abdomen and pelvis with a previous FINDINGS: LOWER CHEST: Mild cardiomegaly. Coronary and valvular calcifications LIVER: Unchanged hepatic hypodensities are probably cysts or hemangiomas GALLBLADDER/BILIARY: Cholelithiasis without evidence of cholecystitis. Gallbladder. No abnormal biliary dilatation. SPLEEN: Unremarkable. PANCREAS: Again seen is a small cystic change in the tail of the pancreas measuring 1.1 cm, likely an IPMN. ADRENALS: Unremarkable. KIDNEYS: Cortical cysts. No stones or hydronephrosis identified. PERITONEUM/RETROPERITONEUM. No lymphadenopathy by size criteria. 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 Extensive atherosclerosis with severe stenoses of the celiac trunk, the SMA, the renal arteries and the RO. The internal iliac arteries are severely stenosed again. Multifocal stenoses of the left external iliac and partially visualized femoral arteries GASTROINTESTINAL: No obstruction. Normal appendix. Colonic diverticulosis without evidence of diverticulitis. REPRODUCTIVE: Normal-sized prostate gland with coarse calcifications URINARY BLADDER: Opacified by the excreted contrast. Wall thickening. BONES: No acute findings. Well-demarcated lucent change in the left femoral neck probably representing a benign fibrocystic change. There is thinning of the femoral neck cortex superiorly. IMPRESSION: Redemonstration of extensive atherosclerosis of the abdominal aortic vasculature with aneurysmal changes as above. These findings are not appreciably changed from CTA examination performed 1 day previously. No acute aortic process identified. Mild inflammatory changes are again seen involving the loops of small bowel suggesting enteritis. The etiology may be infectious/inflammatory though ischemic etiology may be a consideration as well given the extensive atherosclerosis. Mild wall thickening of the urinary bladder may be due to cystitis Well-demarcated lucent change in the left femoral neck probably representing a benign fibrocystic change. There is thinning of the femoral neck cortex superiorly. This raises risk for a future pathologic fracture in this area. Orthopedic consultation advised Electronically signed by Storm Santos 06-02-2025 8:13 PM
[2025-06-02] MEDS: ONDANSETRON INJ 2 MG/ML 2 ML VIAL IV STA (20:55)
[2025-06-02] MEDS ORDERED: HYDROmorphone INJ 0.5 MG/0.5 ML SYR IV PRN ×2 (21:16→22:50)
--- NOTE | 2025-06-02 21:44 | History & Physical Report ---
Date of Service June 02, 2025 Assessment & Plan (1) Abdominal pain: (2) Myelofibrosis: (3) Hypertension: (4) Hyperlipidemia: (5) GERD (gastroesophageal reflux disease): Plan 69yo male with history of primary myelofibrosis reportedly end-stage, HTN, HLP, CKD, AF presenting with several days of persistent abdominal pain, worse after stopping his Jakafi as instructed, no relief with his home Oxycodone. Patient with decreased appetite and poor oral intake. #Abdominal pain - possibly secondary to patient's enlarged spleen. Constipation likely contributing. CTA findings as above with concern for enteritis - possibly infectious/inflammatory vs ischemic given patient's history of extensive atherosclerosis. Lactate is WNL at 1.8. -Admit to medical -Pain control with Tylenol, Dilaudid 0.25 - 0.5mg IV q 3 hours PRN -Palliative Care consultation appreciated -Continue patient's home Baclofen 10mg po TID PRN -Bowel regimen with Dulcolax suppository, Docusate/Senna and Miralax PRN -Will provide Thiamine 100mg po daily given poor oral intake #Myelofibrosis - patient reportedly end-stage Primary Myelofibrosis. He follows with Oncology. -Request most recent Oncology notes -Continue home Jakafi BID. Patient has brought this medication from home #Elevated Cr - baseline Cr 0.8 - 1. Cr today mildly elevated at 1.29. Patient follows with Nephrology. Likely secondary to volume contraction as patient reports decline in oral intake over the last several days. -Continue IVF - LR at 100mL/hr x 2L -Will hold Lisinopril and Torsemide for now -Avoid nephrotoxic agents -Renal dosing where needed -Repeat chemistry in AM #CAD - -Continue ASA -Continue Metoprolol #COPD -Albuterol PRN History of Present Illness Chief Complaint: abdominal pain Primary Care Provider: DO Clinton Farah Aamir is a 69yo male with history of CKD (G1/A3 with baseline Cr of 0.8- 1), HTN, HLP, Atrial Fibrillation and Primary Myelofibrosis presenting with severe abdominal pain. Most recent Hematology note available in the system is from 12/06/2024. Patient reports that he sees Hematology monthly. He had an abdominal ultrasound performed on 04/08/25 which revealed moderate splenomegaly with spleen measuring 18cm in length. Approximately 1 month ago he was started on Ruxolitinib (Jakafi) BID which he has been taking as prescribed. On 05/29/25 he had a repeat ultrasound which showed that the spleen has decreased in size and is now within the normal range at 13.6cm. Patient reports being contacted by his Oncologist, Dr. Andrews, in regards to these ultrasound results and was told to hold his Ruxolitinib for three days then to resume. Patient reports holding his medication as directed and restarted it this AM 06/02/25. Patient reports very severe abdominal pain and bloating ongoing for the last several days with acute worsening after stopping his Jakafi. Pain is located predominantly on the left side of his abdomen with radiation across the mid- abdomen. He has very little appetite and has not eaten anything more than a few bites of food for several days. He has chronic ongoing constipation as well as frequent nausea and does not recall his last BM. He denies vomiting. Is passing flatus although decreased. Patient has been taking Oxycodone at home for pain control which has not been successful. No additional complaints at this time. Patient reports being told recently that he is at the end stage of his disease and "will not see 2025". In the ER he is afebrile, HD stable ER Course: Morphine 6mg IV NSS x 500mL Dilaudid 0.5mg IV Allergies Allergy/AdvReac Type Severity Reaction Status Date / Time escitalopram [From Lexapro] AdvReac Intermediate BECAME Verified 06/02/25 19:58 MORE DEPRESSED Home Medications Medication Instructions Recorded Confirmed Type nitroglycerin 0.4 mg sublingual 0.4 mg sublingual UD PRN Chest 06/26/24 06/02/25 Rx tablet (Nitrostat) Pain #25 tabs aspirin 81 mg tablet,delayed 81 mg PO HS 01/03/25 06/02/25 History release metoprolol succinate 100 mg 100 mg PO BID #180 tabs 01/14/25 06/02/25 Rx tablet,extended release 24 hr torsemide 20 mg tablet 20 mg PO DAILY #90 tabs 02/11/25 06/02/25 Rx amlodipine 10 mg-benazepril 40 mg 1 cap PO QAM #90 caps 03/24/25 06/02/25 Rx capsule ruxolitinib 5 mg tablet (Jakafi) 5 mg PO BID 05/30/25 06/02/25 History ondansetron 4 mg disintegrating 4 mg PO Q8H PRN nausea and 06/01/25 06/02/25 Rx tablet vomiting 5 days #15 tabs albuterol sulfate 90 mcg/actuation 2 puff inhalation QID PRN 06/02/25 06/02/25 History aerosol inhaler Shortness Of Breath Or Wheezing baclofen 10 mg tablet 10 mg PO TID PRN MUSCLE SPASMS 06/02/25 06/02/25 History Past Med/Surg History Problem List (Updated 06/02/25 @ 23:40 by Freida Ferro DO) Myelofibrosis Stenosis of artery (Acute) Aneurysm artery, iliac (Acute) Constipation (Acute) Abdominal pain (Acute) Influenza A Sepsis Leukocytosis (Acute) Elevated troponin (Acute) COPD exacerbation (Acute) CHF (congestive heart failure) (Acute) Respiratory failure (Acute) Anxiety COPD (chronic obstructive pulmonary disease) Post-viral reactive airway disease Primary myelofibrosis Hyponatremia Vitamin D deficiency Hypertension Proteinuria Parakeratosis (Chronic) Left renal artery stenosis (Acute) Former smoker (Acute) 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 (Acute) Pacemaker Incisional hernia Sick sinus syndrome (Chronic 2005) Meditronic Dual chamber pacemaker placed 01/02/2006 Abdominal aortic aneurysm S/P REPAIR 12 YEARS PRIOR, [facility] Hyperlipidemia (Chronic) HTN (hypertension) (Chronic) GERD (gastroesophageal reflux disease) (Acute) Medical History Apneic episode Acute heart failure with mildly reduced ejection fraction (HFmrEF, 41-49%) Alcohol use disorder CAD (coronary artery disease) (1998) Cardiac Catheterization revealed 100% RCA occlusion with well developed collaterals with stenosis of obtuse marginal and left circumflex with stent placement. Rectal bleeding Bailey esophagus Hypertension Surgical History History of cataract surgery LEFT History of colonoscopy History of esophagogastroduodenoscopy (EGD) History of AAA (abdominal aortic aneurysm) repair History of surgery LEFT HAND REATTACHED AFTER TRAUMA (30+YEARS AGO). PT HAS SOME NUMBNESS AND TINGLING BUT HAS FULL FUNCTION. History of surgery REPAIR OF DEVIATED SEPTUM History of herniorrhaphy MULTIPLE, INCLUDING UMBILICAL History of cardiac cath ANGIOPLASTY X2, STENT PLACEMENT (20 YEARS AGO) Family History Father Diabetes Myocardial infarction Hypertension Mother Diabetes Hypertension Gall bladder disease Other No family history of adverse response to anesthesia Denies family history of Ovarian cancer Prostate cancer Breast cancer Lung cancer Colorectal cancer Social History Smoking Status: Former smoker Tobacco Type: Cigarettes Age Started Using Tobacco: 16; Age Quit Using Tobacco: 46; packs per day: 1; Cigarettes Per Day: quit 15 years; Second Hand Exposure: No; Do You Dip or Chew Tobacco: No; Hx Alcohol Use: Yes Alcohol type: beer Hx Substance Use: No Preferred Language: Syrian Communication Ability: Effective Visual Impairment: Limited Hearing Ability: Normal Customs Inspector Required: No Beliefs That Will Affect Care: None marital status: Current Living Situation: Spouse current occupational status: retired How many Children do You have Comment: 1 adult step son Feels Safe at Home: Yes Childhood Exposure to Second-Hand Smoke: No Diet: other Diet Comment: Mediterranean diet caffeine: Yes during the past year weight has: decreased > 10 lbs Dental Care, Regularly: No Physical Activity Frequency: Does not Exercise Seatbelt Use: always Sunscreen Use: No Do you think of yourself as: straight/heterosexual Gender Identity: Male Assistive Devices: None Review of Systems Review of Systems: All systems reviewed & are unremarkable except as noted in HPI & below Physical Exam Physical Exam: General: patient in NAD, non-toxic in appearance, AA&O x 4 Skin: warm, dry, intact, no rashes or lesions HEENT: NC/AT, PERRL, EOMI, anicteric sclera, conjunctiva without injection, external ear normal to inspection and nontender, nares patent, moist mucus membranes, dentition intact, no oropharyngeal lesions, neck supple, trachea midline, no LAD, no thyromegaly, no JVD Heart: +S1/S2, regular, no m/r/g Lungs: equal air entry bilaterally, no rales/rhonchi/wheezes Abd: +BS, soft, mildly distended and tympanic to percussion, tender to palpation in LUQ and diffusely with some voluntary guarding Ext: warm, 2+ pulses in UE/LE bilaterally, no clubbing/cyanosis or edema Neuro: nonfocal, patient AA&O x 4, speech intact, no facial droop, moving all extremities on command with equal strength 5/5 Results & Data Results & Data Vital Signs (Past 12 Hours) Vital Signs Temp Pulse Pulse Resp BP Pulse Ox O2 Del Method 06/02/25 21:00 75 18 140/66 100 Room Air 06/02/25 20:00 68 18 125/68 96 Room Air 06/02/25 19:00 68 16 129/68 100 Room Air 06/02/25 18:17 88 06/02/25 18:06 77 22 99 Room Air 06/02/25 17:49 81 23 113/52 L 99 Room Air 06/02/25 17:39 36.8 C Laboratory Results Laboratory Results WBC 14.22 K/ul (4.8-10.8) H 06/02/25 17:41 RBC 2.89 M/uL (4.70-6.10) L 06/02/25 17:41 Hgb 9.4 g/dl (14.0-18.0) L 06/02/25 17:41 Hct 29.8 % (42.0-52.0) L 06/02/25 17:41 MCV 103.1 fL (80.0-100.0) H 06/02/25 17:41 MCH 32.5 pg (25.0-34.0) 06/02/25 17:41 MCHC 31.5 g/dL (32.0-36.0) L 06/02/25 17:41 RDW Std Deviation 99.2 fL (36.4-46.3) H 06/02/25 17:41 RDW Coeff of Dominique 26.6 % (11.5-14.5) H 06/02/25 17:41 Plt Count 58 K/uL (130-400) L 06/02/25 17:41 MPV 9.9 fL (9.4-12.4) 06/02/25 17:41 Absolute Nucleated RBC 0.37 K/uL (0.00-0.12) H 06/02/25 17:41 Nucleated RBC % (auto) 2.6 % 06/02/25 17:41 Neutrophils % (Manual) 61 % 06/02/25 17:41 Lymphocytes % (Manual) 9 % 06/02/25 17:41 Monocytes % (Manual) 7 % 06/02/25 17:41 Eosinophils % (Manual) 2 % 06/02/25 17:41 Basophils % (Manual) 5 % 06/02/25 17:41 Metamyelocytes % (Man) 7 % 06/02/25 17:41 Myelocytes % (Man) 5 % 06/02/25 17:41 Promyelocytes % (Man) 2 % 06/02/25 17:41 Blast Cells % (Manual) 2 % 06/02/25 17:41 Neutrophils # (Manual) 8.67 K/uL (1.40-6.50) H 06/02/25 17:41 Total Absolute Neuts 8.67 K/uL (1.4-6.5) H 06/02/25 17:41 Lymphocytes # (Manual) 1.28 K/uL (1.2-3.4) 06/02/25 17:41 Total Abs Lymphocytes 1.28 K/uL (1.2-3.4) 06/02/25 17:41 Monocytes # (Manual) 1.00 K/uL (0.11-0.59) H 06/02/25 17:41 Eosinophils # (Manual) 0.28 K/uL (0-0.50) 06/02/25 17:41 Basophils # (Manual) 0.71 K/uL (0-0.2) H 06/02/25 17:41 Metamyelocytes # (Man) 1.00 K/uL (0-0) H 06/02/25 17:41 Myelocytes # (Manual) 0.71 K/uL (0-0) H 06/02/25 17:41 Promyelocytes # (Man) 0.28 K/uL (0-0) H 06/02/25 17:41 Blast Cells # (Man) 0.28 K/uL (0-0) H 06/02/25 17:41 Anisocytosis Present 06/02/25 17:41 Tear Drop Cells 1+ 06/02/25 17:41 Ovalocytes 1+ 06/02/25 17:41 Stomatocytes 1+ 06/02/25 17:41 Sodium 132 mmol/L (136-145) L 06/02/25 17:41 Potassium 4.3 mmol/L (3.5-5.1) 06/02/25 17:41 Chloride 100 mmol/L (98-107) 06/02/25 17:41 Carbon Dioxide 18 mmol/L (21-32) L 06/02/25 17:41 Anion Gap 14 (3-11) H 06/02/25 17:41 BUN 23 mg/dl (6-23) 06/02/25 17:41 Creatinine 1.29 mg/dl (0.6-1.4) 06/02/25 17:41 Est Cr Clr Drug Dosing 56.8 ml/min 06/02/25 17:41 eGFR 59.65 06/02/25 17:41 BUN/Creatinine Ratio 17.8 (10-20) 06/02/25 17:41 Glucose 164 mg/dl (70-99(Fasting)) H 06/02/25 17:41 Lactate 1.8 mmol/L (0.4-2.0) 06/02/25 18:07 Calcium 8.6 mg/dl (8.6-10.3) 06/02/25 17:41 Phosphorus 3.8 mg/dl (2.5-4.9) 06/02/25 19:53 Magnesium 1.8 mg/dl (1.7-2.4) 06/02/25 19:53 Total Bilirubin 1.4 mg/dl (0.2-1.0) H 06/02/25 17:41 AST 18 U/L (13-39) 06/02/25 17:41 ALT 12 U/L (7-52) 06/02/25 17:41 Alkaline Phosphatase 55 U/L (34-104) 06/02/25 17:41 Troponin I High Sens 20.7 pg/ml (0-20) H 06/02/25 19:53 Total Protein 6.6 gm/dl (6.0-8.3) 06/02/25 17:41 Albumin 4.0 gm/dl (3.4-5.0) 06/02/25 17:41 Globulin 2.6 gm/dl (2.5-4.0) 06/02/25 17:41 Albumin/Globulin Ratio 1.5 (0.9-2) 06/02/25 17:41 Lipase 16 U/L (11-82) 06/02/25 17:41 Impressions Abdomen/Pelvis CTA 06/02/25 17:55 CT ABDOMEN and PELVIS with INTRAVENOUS CONTRAST HISTORY: Abdominal pain TECHNIQUE: CT angiogram abdomen and pelvis with contrast. IV CONTRAST: 100 mL of OMNIPAQUE 300 ENTERIC CONTRAST: Not Given COMPARISON: CT angiogram abdomen and pelvis with a previous FINDINGS: LOWER CHEST: Mild cardiomegaly. Coronary and valvular calcifications LIVER: Unchanged hepatic hypodensities are probably cysts or hemangiomas GALLBLADDER/BILIARY: Cholelithiasis without evidence of cholecystitis. Gallbladder. No abnormal biliary dilatation. SPLEEN: Unremarkable. PANCREAS: Again seen is a small cystic change in the tail of the pancreas measuring 1.1 cm, likely an IPMN. ADRENALS: Unremarkable. KIDNEYS: Cortical cysts. No stones or hydronephrosis identified. PERITONEUM/RETROPERITONEUM. No lymphadenopathy by size criteria. 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 Extensive atherosclerosis with severe stenoses of the celiac trunk, the SMA, the renal arteries and the RO. The internal iliac arteries are severely stenosed again. Multifocal stenoses of the left external iliac and partially visualized femoral arteries GASTROINTESTINAL: No obstruction. Normal appendix. Colonic diverticulosis without evidence of diverticulitis. REPRODUCTIVE: Normal-sized prostate gland with coarse calcifications URINARY BLADDER: Opacified by the excreted contrast. Wall thickening. BONES: No acute findings. Well-demarcated lucent change in the left femoral neck probably representing a benign fibrocystic change. There is thinning of the femoral neck cortex superiorly. IMPRESSION: Redemonstration of extensive atherosclerosis of the abdominal aortic vasculature with aneurysmal changes as above. These findings are not appreciably changed from CTA examination performed 1 day previously. No acute aortic process identified. Mild inflammatory changes are again seen involving the loops of small bowel suggesting enteritis. The etiology may be infectious/inflammatory though ischemic etiology may be a consideration as well given the extensive atherosclerosis. Mild wall thickening of the urinary bladder may be due to cystitis Well-demarcated lucent change in the left femoral neck probably representing a benign fibrocystic change. There is thinning of the femoral neck cortex superiorly. This raises risk for a future pathologic fracture in this area. Orthopedic consultation advised Electronically signed by Storm Santos 06-02-2025 8:13 PM Code Status & VTE Plan VTE Prophylaxis Plan VTE Prophylaxis will be ordered: Yes PG Care Time/CCT Total # of Minutes Spent Total Time Spent with Patient: Total time spent is greater than 50% in coordination of care (as documented) at patient's floor/unit and/or counseling patient: Coding Level of Care Code 39402 INT INP/OBS CARE 3/75MIN Diagnoses Abdominal pain R10.33 Abdominal location: periumbilical Myelofibrosis D75.81 Hypertension I10 Hyperlipidemia E78.5 GERD (gastroesophageal reflux disease) K21.9 (1) Abdominal pain Abdominal location: periumbilical Qualified Code(s): R10.33 - Periumbilical pain
[2025-06-02] MEDS ORDERED: BACLOFEN 10 MG TAB PO PRN (22:50)
[2025-06-02] MEDS ORDERED: ONDANSETRON INJ 2 MG/ML 2 ML VIAL IV PRN (22:50)
[2025-06-02] MEDS ORDERED: POLYETHYLENE (MIRALAX) 17 GM PACK PO PRN (22:50)
[2025-06-02] MEDS ORDERED: ALBUTEROL HFA 8 GM INHALER INH PRN (22:50)
[2025-06-02] MEDS: HYDROmorphone INJ 0.5 MG/0.5 ML SYR IV PRN (23:04)
[2025-06-02] MEDS: LACTATED RINGER'S 1,000 ML IV SCH (23:18)
[2025-06-02 23:20] LABS: Magnesium 1.8 mg/dl (1.7-2.4)
[2025-06-03] MEDS ORDERED: NALOXONE HCL 0.4 MG/1 ML VIAL/CARP IV PRN (03:02)
[2025-06-03] MEDS ORDERED: HYDROmorphone INJ 0.5 MG/0.5 ML SYR IV PRN (03:03)
[2025-06-03] MEDS: HYDROmorphone INJ 0.5 MG/0.5 ML SYR IV PRN (06:26)
[2025-06-03 07:28] LABS: Anion Gap 7.0 (3-11); Blood Urea Nitrogen 20.0 mg/dl (6-23); Calcium 8.2 mg/dl (8.6-10.3); Carbon Dioxide 23.0 mmol/L (21-32); Chloride 102.0 mmol/L (98-107); Creatinine Clr Calc Pharmacy 62.6 ml/min; Glucose 94.0 mg/dl (70-99(Fasting)); Potassium 4.0 mmol/L (3.5-5.1); Sodium 132.0 mmol/L (136-145)
[2025-06-03 07:29] LABS: Appearance Urine Clear (Clear); Glucose Urine UA Negative (Negative)
[2025-06-03] MEDS: ACETAMINOPHEN 500 MG TAB PO SCH (08:23)
[2025-06-03] MEDS: THIAMINE HCL 100 MG TAB PO SCH (08:24)
[2025-06-03] MEDS: METOPROLOL SUCC 50MG EXT REL TAB PO SCH (08:24)
[2025-06-03] MEDS: RUXOLITINIB PHOSPHATE PO SCH (08:27)
[2025-06-03 08:58] LABS: Hematocrit (blood only) 26.4 % (42.0-52.0); Hemoglobin 8.4 g/dl (14.0-18.0); Mean Corpuscular Hemoglobin 33.2 pg (25.0-34.0); Mean Corpuscular Volume 104.3 fL (80.0-100.0); Platelet Count 52 K/uL (130-400); RDW Standard Deviation 99.9 fL (36.4-46.3); Red Blood Count 2.53 M/uL (4.70-6.10); White Blood Count 11.22 K/ul (4.8-10.8)
--- NOTE | 2025-06-03 10:30 | Hospitalist Progress Note ---
Date of Service June 03, 2025 Assessment & Plan (1) Abdominal pain: Plan: Intermittent and spasmodic. Suspected from underlying constipation. Unlikely that his abdominal pain is from chronic splenomegaly associated with the MDS. KUB ordered and pending. Laxative started (2) Myelofibrosis: Plan: Chronic. Producing anemia. Serial labs (3) Hypertension: Plan: Stable. Continue current medical management (4) Hyperlipidemia: Plan: Stable. Continue current medical management (5) GERD (gastroesophageal reflux disease): Plan: Stable. Continue current medical management Plan Hopeful discharge to home tomorrow, June 04 Admission and Anticipated Discharge Date Admission Date: June 02, 2025 Subjective Alert and oriented. is at the bedside. Intermittent cramping abdominal pain is probably from underlying constipation. Very doubtful that chronic splenomegaly from the myelodysplastic syndrome is causing his abdominal discomfort. KUB has been ordered and MiraLAX and Colace started. Hemoglobin this morning is 8.4 and platelet count 52. Creatinine improved to 1.1 with IV fluids which have been tapered down. Hopefully he will be able to go home tomorrow, June 04 Review of Systems 2 Review of Systems: Constitutionalno fever or chills ENTno blurred vision, no double vision, no epistaxis, no sore throat Respiratoryno cough, no wheezing, no shortness of breath Cardiacno palpitations, no chest pain, no syncope GIconstipated. No melena or hematochezia. Appetite has dropped off due to nausea suspected from constipation. No vomiting. GUno urinary retention, no urinary incontinence, no dysuria, no hematuria Musculoskeletalno joint pain, no muscle tenderness Skinno bruising, no rashes, no pruritus Neurono isolated weakness, no paresthesia, no weakness Psychno depression, no anxiety Physical Exam 2 Physical Exam: General-alert and oriented x3, no fever, no chills HEENT-head atraumatic and normocephalic, pupils equal and reactive to light, extraocular muscles intact Neck-no lymphadenopathy or thyromegaly, trachea midline Chest-clear to auscultation. No rales, wheezing or rhonchi Cardiac-regular rate and rhythm, normal S1 and S2 Abdomen-normal bowel sounds. Nontender. No palpable masses. No rebound or guarding Extremities-no cyanosis, clubbing, or edema Neuro-cranial nerves II through XII intact, motor and sensory function within normal limits, strength symmetrical, no focal deficits Psych-depressed affect Results & Data Results & Data Vital Signs (Past 12 Hours) Vital Signs Temp Pulse Pulse Resp BP BP Pulse Ox 06/03/25 07:42 36.8 C 69 16 127/63 96 06/02/25 22:55 06/02/25 22:51 36.5 C 81 18 116/75 100 06/02/25 22:47 74 18 157/69 H 100 O2 Del Method 06/03/25 07:42 Room Air 06/02/25 22:55 Room Air 06/02/25 22:51 Room Air 06/02/25 22:47 Room Air Laboratory Results 06/03/25 08:28 06/03/25 06:38 PG Care Time/CCT Total # of Minutes Spent Total Time Spent with Patient: Total time spent is greater than 50% in coordination of care (as documented) at patient's floor/unit and/or counseling patient: Coding Level of Care Code 76644 SUB INP/OBS CARE 3/50MIN Diagnoses Abdominal pain R10.33 Abdominal location: periumbilical Myelofibrosis D75.81 Hypertension I10 Hyperlipidemia E78.5 GERD (gastroesophageal reflux disease) K21.9 (1) Abdominal pain Abdominal location: periumbilical Qualified Code(s): R10.33 - Periumbilical pain
[2025-06-03 10:39] LABS: ALC (manual) 2.47 K/uL (1.2-3.4); ANC (manual) 5.83 K/uL (1.4-6.5); Anisocytosis Present; Blast # (manual) 0.56 K/uL (0-0); Polychromasia 3+; Tear Drop Cells 1+
--- NOTE | 2025-06-03 11:00 | XRay Report ---
KUB HISTORY: constipation COMPARISON STUDY: 02/09/2019 FINDINGS: There is mild retained stool. No bowel obstruction seen. No gross free air. There are ather osclerotic calcifications. IMPRESSION: No acute findings. ACT 112: Negative or not required by law. The above report was generated using voice recognition software. It may contain grammatical, syntax o r spelling errors. Electronically signed by: Steve Martinez M.D. 06/03/2025 10:58 AM
[2025-06-03] MEDS: DOCUSATE SODIUM 100 MG CAP PO SCH (11:13)
[2025-06-03] MEDS: POLYETHYLENE (MIRALAX) 17 GM PACK PO SCH (11:13)
--- NOTE | 2025-06-03 15:47 | Palliative Care Consultation ---
Date of Consultation June 03, 2025 Assessment & Plan (1) Cancer related pain: Anticipate dc tomorrow Begin transition to oral meds: Dilaudid 2mg and 4mg Q3h and q4h prn repsectively for mild-od or sev-very severe BTP/Hold for somnolence or RR less than 14; please document RR with each dose administration. Follow up with me in cancer clinic within 2 weeks for ongoing sx mgt (2) Advanced care planning/counseling discussion: 45min face t face ACP meeting with pt and his at bedside. He states he was told he has 6 mos to live. He feels stunned to hear this, was not anticipating a short amount of time but also notes he knew time was limited overall Does not want SCT - feels it is more risk than he wants and does not align with what he values and identifies as priorities/goals for himself. he wants to focus on QOL, time with , being home and close to home-this is where he enjoys being and has comfort. Estranged from son, notes there is no support anticipated from son. He is open to other cancer therapies that are not transplant, states they would be receptive to taking other meds or chemo just not a transplant. Support provided that medical teams are here to respect and honor his wishes. We want his care to be in alignment with what matters the most to him and we will endeavor to provide this support and intensity interventions to support his needs in an ongoing manner. (3) Palliative care by specialist: Introduced Palliative Medicine and explained our role in patient's care. Patient and/or family were receptive to palliative services for goals of care discussions. Reviewed we are different from hospice, a home health nurse vi siting service. (4) Primary myelofibrosis: Plan cancer pain mgt as noted above Pablo Michael from my team will see him tomorrow for pain mgt follow up and I have asked cancer clinic to arrange f/u appt. please dc home with 30 day rx of pain meds. Thank you for allowing us to participate in the ongoing care of this patient. Please page with any additional concerns. Angie Ventura DNP Director, Palliative Medicine History of Present Illness Reason for Consultation: pain mgt Attending Physician: Ruben Hidalgo MD History of Present Illness Santhosh Rutledge is a 69yo male with history of primary myelofibrosis PMH: HTN, HLP, CKD, AF he came to ED with c/o persistent abdominal pain, worse after stopping his Jakafi as instructed, no relief with his home Oxycodone, +decreased appetite and poor oral intake. he is seen bedside with He states he was recently told he has 6 mos to live he declined a SCT - notes the success rate of 50/50 was not worth it to him since the [facility] is such a long drive and outcomes were not great. he felt if time overall is limited, he would rather be spending it closer to home and with family. Oncology clinic 05/29/25, note as follows (copied from [facility]): "PMF; high risk, symptomatic;: DNMT3A (Tier 2; VAF 45%), JAK2 V617F (Tier 1; VAF 57%), SBDS: Splenomegaly on last CTA chest; Symptoms due to splenomegaly are improving steadily. Platelet count is 66,000/ul. Currently on Jakafi 5 mg bid Check CBC every 2 weeks. If platelets are < 50,000/ul then hold Jakafi Intermittent diarrhea: take Imodium Splenomegaly is improvingl now improved to 13.6 cm. Hold Jakafi or 3 days due to bloating and fatigue and then restart as he is responding well with a reduction in size of the spleen. Follow up in 4 weeks time." Allergies Allergy/AdvReac Type Severity Reaction Status Date / Time escitalopram [From Lexapro] AdvReac Intermediate BECAME Verified 06/02/25 19:58 MORE DEPRESSED Home Medications Medication Instructions Recorded Confirmed Type nitroglycerin 0.4 mg sublingual 0.4 mg sublingual UD PRN Chest 06/26/24 06/02/25 Rx tablet (Nitrostat) Pain #25 tabs aspirin 81 mg tablet,delayed 81 mg PO HS 01/03/25 06/02/25 History release metoprolol succinate 100 mg 100 mg PO BID #180 tabs 01/14/25 06/02/25 Rx tablet,extended release 24 hr torsemide 20 mg tablet 20 mg PO DAILY #90 tabs 02/11/25 06/02/25 Rx amlodipine 10 mg-benazepril 40 mg 1 cap PO QAM #90 caps 03/24/25 06/02/25 Rx capsule ruxolitinib 5 mg tablet (Jakafi) 5 mg PO BID 05/30/25 06/02/25 History ondansetron 4 mg disintegrating 4 mg PO Q8H PRN nausea and 06/01/25 06/02/25 Rx tablet vomiting 5 days #15 tabs albuterol sulfate 90 mcg/actuation 2 puff inhalation QID PRN 06/02/25 06/02/25 History aerosol inhaler Shortness Of Breath Or Wheezing baclofen 10 mg tablet 10 mg PO TID PRN MUSCLE SPASMS 06/02/25 06/02/25 History Patient History Medical History Apneic episode Acute heart failure with mildly reduced ejection fraction (HFmrEF, 41-49%) Alcohol use disorder CAD (coronary artery disease) (1998) Cardiac Catheterization revealed 100% RCA occlusion with well developed collaterals with stenosis of obtuse marginal and left circumflex with stent placement. Rectal bleeding Bailey esophagus Hypertension Surgical History History of cataract surgery LEFT History of colonoscopy History of esophagogastroduodenoscopy (EGD) History of AAA (abdominal aortic aneurysm) repair History of surgery LEFT HAND REATTACHED AFTER TRAUMA (30+YEARS AGO). PT HAS SOME NUMBNESS AND TINGLING BUT HAS FULL FUNCTION. History of surgery REPAIR OF DEVIATED SEPTUM History of herniorrhaphy MULTIPLE, INCLUDING UMBILICAL History of cardiac cath ANGIOPLASTY X2, STENT PLACEMENT (20 YEARS AGO) Family History Father Diabetes Myocardial infarction Hypertension Mother Diabetes Hypertension Gall bladder disease Other No family history of adverse response to anesthesia Denies family history of Ovarian cancer Prostate cancer Breast cancer Lung cancer Colorectal cancer Social History Smoking Status: Former smoker Tobacco Type: Cigarettes Age Started Using Tobacco: 16; Age Quit Using Tobacco: 46; packs per day: 1; Cigarettes Per Day: quit 15 years; Second Hand Exposure: No; Do You Dip or Chew Tobacco: No; Hx Alcohol Use: Yes Alcohol type: beer Hx Substance Use: Yes Last Used Substance: Days (ago) Last Used Substance Other:: 5 days ago Preferred Language: Lao Communication Ability: Effective Visual Impairment: Limited Hearing Ability: Normal Medicine Technologist Required: No Beliefs That Will Affect Care: None marital status: Current Living Situation: Spouse current occupational status: retired How many Children do You have Comment: 1 adult step son Feels Safe at Home: Yes Childhood Exposure to Second-Hand Smoke: No Diet: other Diet Comment: Mediterranean diet caffeine: Yes during the past year weight has: decreased > 10 lbs Dental Care, Regularly: No Physical Activity Frequency: Does not Exercise Seatbelt Use: always Sunscreen Use: No Do you think of yourself as: straight/heterosexual Gender Identity: Male Assistive Devices: Cane and Walker Review of Systems Review of Systems: All systems reviewed & are unremarkable except as noted in Subjective Physical Exam Physical Exam: AAOx3 Resting at edge of bed, is seated next to him NCAT PERRLA mild hearing deficit No stridor No resp distress No JVD Abd Non tender Ext w/o C/c/e tearful/emotional through this encounter Results & Data Vital Signs (Past 12 Hours) Vital Signs Temp Pulse Resp BP Pulse Ox O2 Del Method 06/03/25 14:33 36.7 C 76 16 147/69 H 99 Room Air 06/03/25 07:42 36.8 C 69 16 127/63 96 Room Air Laboratory Results 06/03/25 06/03/25 06/03/25 Range/Units Unknown 08:28 06:38 WBC 11.22 H Cancelled (4.8-10.8) K/ul RBC 2.53 L Cancelled (4.70-6.10) M/uL Hgb 8.4 L Cancelled (14.0-18.0) g/dl Hct 26.4 L Cancelled (42.0-52.0) % MCV 104.3 H Cancelled (80.0-100.0) fL MCH 33.2 Cancelled (25.0-34.0) pg MCHC 31.8 L Cancelled (32.0-36.0) g/dL RDW Std Deviation 99.9 H Cancelled (36.4-46.3) fL RDW Coeff of Dominique 26.6 H Cancelled (11.5-14.5) % Plt Count 52 L Cancelled (130-400) K/uL MPV Cancelled (9.4-12.4) fL Immature Gran % (Auto) Cancelled Neut % (Auto) Cancelled Lymph % (Auto) Cancelled [place] % (Auto) Cancelled Eos % (Auto) Cancelled Baso % (Auto) Cancelled Neut # (Auto) Cancelled Lymph # (Auto) Cancelled [place] # (Auto) Cancelled Eos # (Auto) Cancelled Baso # (Auto) Cancelled Immature Gran # (Auto) Cancelled Absolute Nucleated RBC 0.27 H Cancelled (0.00-0.12) K/uL Nucleated RBC % (auto) 2.4 Cancelled % Neutrophils % (Manual) 52 Cancelled % Band Neutrophils % Cancelled Lymphocytes % (Manual) 22 Cancelled % Prolymphocyte % Cancelled Reactive Lymphs % (Man) Cancelled Monocytes % (Manual) 5 Cancelled % Eosinophils % (Manual) 2 Cancelled % Basophils % (Manual) 2 Cancelled % Metamyelocytes % (Man) 6 Cancelled % Myelocytes % (Man) 5 Cancelled % Promyelocytes % (Man) 1 Cancelled % Blast Cells % (Manual) 5 Cancelled % Plasma Cell % (Manual) Cancelled Other Cells % Cancelled Nucleated RBC % Cancelled Neutrophils # (Manual) 5.83 Cancelled (1.40-6.50) K/uL Band Neutrophils # Cancelled Total Absolute Neuts 5.83 Cancelled (1.4-6.5) K/uL Lymphocytes # (Manual) 2.47 Cancelled (1.2-3.4) K/uL Prolymphocyte # Cancelled Reactive Lymphs # Cancelled Total Abs Lymphocytes 2.47 Cancelled (1.2-3.4) K/uL Monocytes # (Manual) 0.56 Cancelled (0.11-0.59) K/uL Eosinophils # (Manual) 0.22 Cancelled (0-0.50) K/uL Basophils # (Manual) 0.22 H Cancelled (0-0.2) K/uL Metamyelocytes # (Man) 0.67 H Cancelled (0-0) K/uL Myelocytes # (Manual) 0.56 H Cancelled (0-0) K/uL Promyelocytes # (Man) 0.11 H Cancelled (0-0) K/uL Blast Cells # (Man) 0.56 H Cancelled (0-0) K/uL Plasma Cell # (Manual) Cancelled Other Cells # Cancelled Nucleated RBCs # (Man) Cancelled Hypersegmented Neuts Cancelled Hyposegmented Neuts Cancelled Hypogranular Neuts Cancelled Large Granular Lymphs Cancelled # Lrg Granular Lymphs Cancelled Hairy Cells Cancelled Smudge Cells Cancelled Toxic Granulation Cancelled Toxic Vacuolation Cancelled Dohle Bodies Cancelled Patricia Rods Cancelled Platelet Estimate Cancelled Hypogranular Platelets Cancelled Giant Platelets Cancelled Platelet Satelliting Cancelled RBC Morphology Cancelled Polychromasia 3+ Cancelled Hypochromasia Cancelled Poikilocytosis Cancelled Basophilic Stippling Cancelled Anisocytosis Present Cancelled Microcytosis Cancelled Macrocytosis Cancelled Spherocytes Cancelled Pappenheimer Bodies Cancelled Sickle Cells Cancelled Target Cells Cancelled Tear Drop Cells 1+ Cancelled Ovalocytes Cancelled Stomatocytes Cancelled Muir-Mesick Bodies Cancelled Echinocytes Cancelled Acanthocytes (Spur) Cancelled Rouleaux Cancelled RBC Agglutinates Cancelled Schistocytes Cancelled Sezary Cell Cancelled Sodium 132 L (136-145) mmol/L Potassium 4.0 (3.5-5.1) mmol/L Chloride 102 (98-107) mmol/L Carbon Dioxide 23 (21-32) mmol/L Anion Gap 7 (3-11) BUN 20 (6-23) mg/dl Creatinine 1.17 (0.6-1.4) mg/dl Est Cr Clr Drug Dosing 62.6 ml/min eGFR 67.06 BUN/Creatinine Ratio 17.1 (10-20) Glucose 94 (70-99(Fasting)) mg/dl Lactate (0.4-2.0) mmol/L Calcium 8.2 L (8.6-10.3) mg/dl Phosphorus (2.5-4.9) mg/dl Magnesium (1.7-2.4) mg/dl Total Bilirubin (0.2-1.0) mg/dl AST (13-39) U/L ALT (7-52) U/L Alkaline Phosphatase (34-104) U/L Troponin I High Sens (0-20) pg/ml Total Protein (6.0-8.3) gm/dl Albumin (3.4-5.0) gm/dl Globulin (2.5-4.0) gm/dl Albumin/Globulin Ratio (0.9-2) Lipase (11-82) U/L Urine Color Yellow Urine Appearance Clear (Clear) Urine pH 5.5 (4.5-7.5) Ur Specific [place] 1.024 (1.000-1.030) Urine Protein Negative (Negative) Urine Glucose (UA) Negative (Negative) Urine Ketones 1+ H (Negative) Urine Blood Negative (Negative) Urine Nitrite Negative (Negative) Urine Bilirubin Negative (Negative) Urine Urobilinogen Negative (Negative) Ur Leukocyte Esterase Negative (Negative) Urine Comment Blood Parasites ID Cancelled 06/02/25 06/02/25 06/02/25 Range/Units 19:53 18:07 17:41 WBC 14.22 H (4.8-10.8) K/ul RBC 2.89 L (4.70-6.10) M/uL Hgb 9.4 L (14.0-18.0) g/dl Hct 29.8 L (42.0-52.0) % MCV 103.1 H (80.0-100.0) fL MCH 32.5 (25.0-34.0) pg MCHC 31.5 L (32.0-36.0) g/dL RDW Std Deviation 99.2 H (36.4-46.3) fL RDW Coeff of Dominiqeu 26.6 H (11.5-14.5) % Plt Count 58 L (130-400) K/uL MPV 9.9 (9.4-12.4) fL Immature Gran % (Auto) Neut % (Auto) Lymph % (Auto) [place] % (Auto) Eos % (Auto) Baso % (Auto) Neut # (Auto) Lymph # (Auto) [place] # (Auto) Eos # (Auto) Baso # (Auto) Immature Gran # (Auto) Absolute Nucleated RBC 0.37 H (0.00-0.12) K/uL Nucleated RBC % (auto) 2.6 % Neutrophils % (Manual) 61 % Band Neutrophils % Lymphocytes % (Manual) 9 % Prolymphocyte % Reactive Lymphs % (Man) Monocytes % (Manual) 7 % Eosinophils % (Manual) 2 % Basophils % (Manual) 5 % Metamyelocytes % (Man) 7 % Myelocytes % (Man) 5 % Promyelocytes % (Man) 2 % Blast Cells % (Manual) 2 % Plasma Cell % (Manual) Other Cells % Nucleated RBC % Neutrophils # (Manual) 8.67 H (1.40-6.50) K/uL Band Neutrophils # Total Absolute Neuts 8.67 H (1.4-6.5) K/uL Lymphocytes # (Manual) 1.28 (1.2-3.4) K/uL Prolymphocyte # Reactive Lymphs # Total Abs Lymphocytes 1.28 (1.2-3.4) K/uL Monocytes # (Manual) 1.00 H (0.11-0.59) K/uL Eosinophils # (Manual) 0.28 (0-0.50) K/uL Basophils # (Manual) 0.71 H (0-0.2) K/uL Metamyelocytes # (Man) 1.00 H (0-0) K/uL Myelocytes # (Manual) 0.71 H (0-0) K/uL Promyelocytes # (Man) 0.28 H (0-0) K/uL Blast Cells # (Man) 0.28 H (0-0) K/uL Plasma Cell # (Manual) Other Cells # Nucleated RBCs # (Man) Hypersegmented Neuts Hyposegmented Neuts Hypogranular Neuts Large Granular Lymphs # Lrg Granular Lymphs Hairy Cells Smudge Cells Toxic Granulation Toxic Vacuolation Dohle Bodies Patricia Rods Platelet Estimate Hypogranular Platelets Giant Platelets Platelet Satelliting RBC Morphology Polychromasia Hypochromasia Poikilocytosis Basophilic Stippling Anisocytosis Present Microcytosis Macrocytosis Spherocytes Pappenheimer Bodies Sickle Cells Target Cells Tear Drop Cells 1+ Ovalocytes 1+ Stomatocytes 1+ Muir-Mesick Bodies Echinocytes Acanthocytes (Spur) Rouleaux RBC Agglutinates Schistocytes Sezary Cell Sodium 132 L (136-145) mmol/L Potassium 4.3 (3.5-5.1) mmol/L Chloride 100 (98-107) mmol/L Carbon Dioxide 18 L (21-32) mmol/L Anion Gap 14 H (3-11) BUN 23 (6-23) mg/dl Creatinine 1.29 (0.6-1.4) mg/dl Est Cr Clr Drug Dosing 56.8 ml/min eGFR 59.65 BUN/Creatinine Ratio 17.8 (10-20) Glucose 164 H (70-99(Fasting)) mg/dl Lactate 1.8 (0.4-2.0) mmol/L Calcium 8.6 (8.6-10.3) mg/dl Phosphorus 3.8 (2.5-4.9) mg/dl Magnesium 1.8 (1.7-2.4) mg/dl Total Bilirubin 1.4 H (0.2-1.0) mg/dl AST 18 (13-39) U/L ALT 12 (7-52) U/L Alkaline Phosphatase 55 (34-104) U/L Troponin I High Sens 20.7 H 21.7 H (0-20) pg/ml Total Protein 6.6 (6.0-8.3) gm/dl Albumin 4.0 (3.4-5.0) gm/dl Globulin 2.6 (2.5-4.0) gm/dl Albumin/Globulin Ratio 1.5 (0.9-2) Lipase 16 (11-82) U/L Urine Color Urine Appearance (Clear) Urine pH (4.5-7.5) Ur Specific [place] (1.000-1.030) Urine Protein (Negative) Urine Glucose (UA) (Negative) Urine Ketones (Negative) Urine Blood (Negative) Urine Nitrite (Negative) Urine Bilirubin (Negative) Urine Urobilinogen (Negative) Ur Leukocyte Esterase (Negative) Urine Comment Blood Parasites ID Diagnostic Findings Abdomen/Pelvis CTA 06/02/25 17:55 CT ABDOMEN and PELVIS with INTRAVENOUS CONTRAST HISTORY: Abdominal pain TECHNIQUE: CT angiogram abdomen and pelvis with contrast. IV CONTRAST: 100 mL of OMNIPAQUE 300 ENTERIC CONTRAST: Not Given COMPARISON: CT angiogram abdomen and pelvis with a previous FINDINGS: LOWER CHEST: Mild cardiomegaly. Coronary and valvular calcifications LIVER: Unchanged hepatic hypodensities are probably cysts or hemangiomas GALLBLADDER/BILIARY: Cholelithiasis without evidence of cholecystitis. Gallbladder. No abnormal biliary dilatation. SPLEEN: Unremarkable. PANCREAS: Again seen is a small cystic change in the tail of the pancreas measuring 1.1 cm, likely an IPMN. ADRENALS: Unremarkable. KIDNEYS: Cortical cysts. No stones or hydronephrosis identified. PERITONEUM/RETROPERITONEUM. No lymphadenopathy by size criteria. 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 Extensive atherosclerosis with severe stenoses of the celiac trunk, the SMA, the renal arteries and the RO. The internal iliac arteries are severely stenosed again. Multifocal stenoses of the left external iliac and partially visualized femoral arteries GASTROINTESTINAL: No obstruction. Normal appendix. Colonic diverticulosis without evidence of diverticulitis. REPRODUCTIVE: Normal-sized prostate gland with coarse calcifications URINARY BLADDER: Opacified by the excreted contrast. Wall thickening. BONES: No acute findings. Well-demarcated lucent change in the left femoral neck probably representing a benign fibrocystic change. There is thinning of the femoral neck cortex superiorly. IMPRESSION: Redemonstration of extensive atherosclerosis of the abdominal aortic vasculature with aneurysmal changes as above. These findings are not appreciably changed from CTA examination performed 1 day previously. No acute aortic process identified. Mild inflammatory changes are again seen involving the loops of small bowel suggesting enteritis. The etiology may be infectious/inflammatory though ischemic etiology may be a consideration as well given the extensive atherosclerosis. Mild wall thickening of the urinary bladder may be due to cystitis Well-demarcated lucent change in the left femoral neck probably representing a benign fibrocystic change. There is thinning of the femoral neck cortex superiorly. This raises risk for a future pathologic fracture in this area. Orthopedic consultation advised Electronically signed by Storm Santos 06-02-2025 8:13 PM KUB X-Ray 06/03/25 09:42 KUB HISTORY: constipation COMPARISON STUDY: 02/09/2019 FINDINGS: There is mild retained stool. No bowel obstruction seen. No gross free air. There are atherosclerotic calcifications. IMPRESSION: No acute findings. ACT 112: Negative or not required by law. The above report was generated using voice recognition software. It may contain grammatical, syntax or spelling errors. Electronically signed by: Steve Martinez M.D. 06/03/2025 10:58 AM PG Care Time/CCT Total # of Minutes Spent Total Time Spent with Patient: Total time spent is greater than 50% in coordination of care (as documented) at patient's floor/unit and/or counseling patient: I spent 115 minutes overall addressing this case: 20 min in medical data review/discussion with referring provider(s) and/or preparation for the visit 15 min in direct interaction with the patient/exam 45 min in Advance Care Planning/Goals of Care discussions as detailed above in note (must be >16min) 15 min in subsequent review and synthesis of assessment and plan 20 min communicating with other providers regarding the patient's case: cancer clinic, primary team, nursing Advanced Care Planning 79314 Advanced Care Planning Additional 30 [place] [address] IN/OBS CONSULT LVL 5,80M (25 - SIGNIFICANT, SEPARATELY IDENTIFIABLE ) Patient Type New Medical Decision Making High Complexity Diagnoses Cancer related pain G89.3 Advanced care planning/counseling discussion Z71.89 Palliative care by specialist Z51.5 Primary myelofibrosis D47.1 Additional Codes Advanced Care Planning - 51719 Advanced Care Planning Additional 30 Min: 90869 Advanced Care Planning Additional 30 Min ([id number]) Comment [id number], [id number]
[2025-06-03 19:35] VITALS: RESP 18
[2025-06-03] MEDS ORDERED: DOCUSATE SODIUM/SENNA 50/8.6MG TAB PO SCH (21:00)
[2025-06-03 21:23] VITALS: O2SAT 96
[2025-06-03] MEDS: ASPIRIN 81 MG ECTAB PO SCH (21:27)
[2025-06-04 07:32] VITALS: BP 153/61; PULSE 75; TEMP 98.2
[2025-06-04 08:18] LABS: Anion Gap 6.0 (3-11); Blood Urea Nitrogen 13.0 mg/dl (6-23); Calcium 8.7 mg/dl (8.6-10.3); Carbon Dioxide 27.0 mmol/L (21-32); Chloride 103.0 mmol/L (98-107); Creatinine Clr Calc Pharmacy 90.4 ml/min; Glucose 92.0 mg/dl (70-99(Fasting)); Hematocrit (blood only) 24.8 % (42.0-52.0); Hemoglobin 7.7 g/dl (14.0-18.0); Mean Corpuscular Hemoglobin 32.8 pg (25.0-34.0); Mean Corpuscular Volume 105.5 fL (80.0-100.0); Platelet Count 49 K/uL (130-400); Potassium 4.0 mmol/L (3.5-5.1); RDW Standard Deviation 100.9 fL (36.4-46.3); Red Blood Count 2.35 M/uL (4.70-6.10); Sodium 136.0 mmol/L (136-145); White Blood Count 9.10 K/ul (4.8-10.8)
[2025-06-04 08:34] LABS: ALC (manual) 2.82 K/uL (1.2-3.4); ANC (manual) 4.28 K/uL (1.4-6.5); Anisocytosis Present; Blast # (manual) 0.18 K/uL (0-0); Polychromasia 1+; Tear Drop Cells 1+
--- NOTE | 2025-06-04 09:29 | Discharge Summary ---
Discharge Summary Date of Service June 04, 2025 Principal Dx & Hospital Course #1 = Principal Diagnosis (1) Abdominal pain: Intermittent and spasmodic on admission. Suspected from underlying constipation. Now resolved. He has had several bowel movements. Unlikely that his abdominal pain is from chronic splenomegaly associated with the MDS. KUB obtained after the patient had a bowel movement and only mild fecal retention seen. (2) Myelofibrosis: Chronic. Producing anemia. Serial labs. Will use oxycodone 5 mg as needed for pain at discharge (3) Hypertension: Stable. Continue current medical management except stop daily torsemide (4) Hyperlipidemia: Stable. Continue current medical management (5) GERD (gastroesophageal reflux disease): Stable. Continue current medical management Plan Home today, June 04 Admission HPI Per Admitting Provider Clinton Rutledge is a 69yo male with history of CKD (G1/A3 with baseline Cr of 0.8- 1), HTN, HLP, Atrial Fibrillation and Primary Myelofibrosis presenting with severe abdominal pain. Most recent Hematology note available in the system is from 12/06/2024. Patient reports that he sees Hematology monthly. He had an abdominal ultrasound performed on 04/08/25 which revealed moderate splenomegaly with spleen measuring 18cm in length. Approximately 1 month ago he was started on Ruxolitinib (Jakafi) BID which he has been taking as prescribed. On 05/29/25 he had a repeat ultrasound which showed that the spleen has decreased in size and is now within the normal range at 13.6cm. Patient reports being contacted by his Oncologist, Dr. Andrews, in regards to these ultrasound results and was told to hold his Ruxolitinib for three days then to resume. Patient reports holding his medication as directed and restarted it this AM 06/02/25. Patient reports very severe abdominal pain and bloating ongoing for the last several days with acute worsening after stopping his Jakafi. Pain is located predominantly on the left side of his abdomen with radiation across the mid- abdomen. He has very little appetite and has not eaten anything more than a few bites of food for several days. He has chronic ongoing constipation as well as frequent nausea and does not recall his last BM. He denies vomiting. Is passing flatus although decreased. Patient has been taking Oxycodone at home for pain control which has not been successful. No additional complaints at this time. Patient reports being told recently that he is at the end stage of his disease and "will not see 2025". In the ER he is afebrile, HD stable ER Course: Morphine 6mg IV NSS x 500mL Dilaudid 0.5mg IV Discharge Exam General-alert and oriented x3, no fever, no chills HEENT-head atraumatic and normocephalic, pupils equal and reactive to light, extraocular muscles intact Neck-no lymphadenopathy or thyromegaly, trachea midline Chest-clear to auscultation. No rales, wheezing or rhonchi Cardiac-regular rate and rhythm, normal S1 and S2 Abdomen-normal bowel sounds. Nontender. No palpable masses. No rebound or guarding Extremities-no cyanosis, clubbing, or edema Neuro-cranial nerves II through XII intact, motor and sensory function within normal limits, strength symmetrical, no focal deficits Psych-depressed affect Discharge Plan Discharge Items Patient Disposition: Home - Self-Care Reason For Visit: INTRACTABLE ABDOMINAL PAIN, BLOATING Discharge Diagnosis: Constipation, abdominal pain Condition on Discharge: Good Activity: Resume your previous activity Non-emergency contact: Primary Care Provider and Oncologist Call non-emergency contact if: your symptoms worsen Follow-up/Referrals: Sarika Lin DO [Primary Care Provider] - Diet: Regular Addtl Attending Provider Instructions: Take MiraLAX and Colace twice daily to keep the bowels moving. Stop daily torsemide water pill . He take it only if you have significant weight gain from fluid retention. Take oxycodone 5 mg 1 or 2 every 6 hours as needed for any pain. A prescription has been sent to [facility] pharmacy on . See your primary care provider and oncologist as soon as possible. Pending Studies at Discharge: No Stand-Alone Forms: My [facility], Smoking Cessation Medications and DC Order Prescriptions: New docusate sodium 100 mg Capsule 100 mg PO BID Qty: 60 0RF oxycodone 5 mg Tablet 5 mg PO Q6H PRN (Reason: pain) Qty: 30 0RF polyethylene glycol 3350 [Miralax] 17 gram Powder In Packet 17 g PO BID Qty: 0 0RF Continued metoprolol succinate 100 mg tablet extended release 24 hr 100 mg PO BID Qty: 180 3RF amlodipine-benazepril 10-40 mg capsule 1 cap PO QAM Qty: 90 3RF nitroglycerin [Nitrostat] 0.4 mg tablet, sublingual 0.4 mg Sublingual UD PRN (Reason: Chest Pain) Qty: 25 3RF Jakafi 5 mg tablet 5 mg PO BID Rx Instructions: PER PT "STARTED TAKE AGAIN THIS AM, 06/02/25". aspirin 81 mg Tablet,Delayed Release (Dr/Ec) 81 mg PO HS ondansetron 4 mg tablet,disintegrating 4 mg PO Q8H PRN (Reason: nausea and vomiting) 5 Days Qty: 15 0RF baclofen 10 mg tablet 10 mg PO TID PRN (Reason: MUSCLE SPASMS) albuterol sulfate 90 mcg/actuation HFA aerosol inhaler 2 puff inhalation QID PRN (Reason: Shortness Of Breath Or Wheezing) Discontinued torsemide 20 mg tablet 20 mg PO DAILY Qty: 90 3RF Discharge Orders: Discharge Order (Routine); Ordered 06/04/25 Ordered By: Ruben Hidalgo Admission Data Admit Date/Time: 06/02/25 21:43 Attending Provider: Ruben Hidalgo Admit Provider: Freida Ferro Primary Care Provider: Sarika Lin Other Providers: Tania Michael; Opal Ventura; Freida Ferro Hospital Stay Data Consultations 06/02/25 20:43 ED Decision to Admit Stat 06/02/25 21:43 Consult Palliative Care Routine Diagnostic Imagining Performed 06/02/25 17:55 CTA abdomen pelvis w con [CT angio abdomen pelvis w con] Stat Pending Results Patient Have Any Pending Studies at Discharge: No Discharge Instructions Given to Patient (Per Discharging Provider) Take MiraLAX and Colace twice daily to keep the bowels moving. Stop daily torsemide water pill . He take it only if you have significant weight gain from fluid retention. Take oxycodone 5 mg 1 or 2 every 6 hours as needed for any pain. A prescription has been sent to [facility] pharmacy on . See your primary care provider and oncologist as soon as possible. Total Time Total Time Spent Total Time Spent (In Minutes): 45 minutes Coding Level of Care Code 77382 INP/OBS DISCH >30 MIN Diagnoses Abdominal pain R10.33 Abdominal location: periumbilical Myelofibrosis D75.81 Hypertension I10 Hyperlipidemia E78.5 GERD (gastroesophageal reflux disease) K21.9
--- NOTE | 2025-06-07 07:15 | Electrocardiogram Report ---
Test Reason : Blood Pressure : */* mmHG Vent. Rate : 88 BPM Atrial Rate : 88 BPM P-R Int : 168 ms QRS Dur : 122 ms QT Int : 414 ms P-R-T Axes : 86 -72 76 degrees QTcB Int : 500 ms Atrial-paced rhythm Left axis deviation Right bundle branch block Minimal voltage criteria for LVH, may be normal variant ( R in aVL ) Abnormal ECG When compared with ECG of 25-Jan-2025 16:03, Atrial-paced rhythm is now Present Confirmed by Jurgen Sol ([id number]) on 06/07/2025 7:15:07 AM Referred By: REFERRED SELF Confirmed By: Jurgen Sol
== END 2025-06-04 10:39 | disposition home or self-care (01) | DRG 392 ==
LOC: ED 17:26 → 3N 21:43 → SUATTDRO 21:43 → 3N 22:47

== ENCOUNTER 2025-08-11 15:12 | Observation (INO) ==
[2025-08-11] MEDS: OPTIRAY 320 125ml IV ONE (15:32)
--- NOTE | 2025-08-11 15:43 | CT Scan Report ---
CT head/brain wo con CLINICAL HISTORY: neuro deficit, acute stroke suspected. TECHNIQUE: Multiple axial CT images of the head were obtained without contrast. A dose lowering tech nique was utilized adhering to the principles of ALARA. COMPARISON: None FINDINGS: No intracranial hemorrhage seen. No mass effect, midline shift, or hydrocephalus. There are mild chronic small vessel ischemic changes. No skull fracture seen. Visualized paranasal sinuses and mastoid air cells are clear. IMPRESSION: No acute findings. ACT 112: Negative or not required by law. The above report was generated using voice recognition software. It may contain grammatical, syntax o r spelling errors. Electronically signed by: Steve Martinez M.D. 08/11/2025 3:42 PM
--- NOTE | 2025-08-11 15:52 | CT Scan Report ---
CT angio neck with con CLINICAL HISTORY: 70 years-old Male with neuro deficit, acute stroke suspected. Acute stroke like symptoms COMPARISON STUDY: Head CT of same day TECHNIQUE: Following the IV administration of 119 mL of Optiray, CT angiogram of the neck was perform ed from the aortic arch to the skull base. Images are reviewed in the axial, sagittal, and coronal pl anes. 3-D MIPS images are created and assessed. IV contrast was administered without complication. Al l measurements were calculated based on NASCET criteria. A dose lowering technique was utilized adhe ring to the principles of ALARA. CT DOSE: 1150.42 mGy.cm FINDINGS: Left subclavian pacer. Moderate to extensive atherosclerosis of the thoracic aortic arch causes high- grade stenosis at the origin of the left subclavian artery. Atherosclerosis of the left carotid bulb in proximal left ICA causes narrowing of up to approximately 50%. Prominent calcified plaque at the r ight carotid bulb and proximal right ICA causes high-grade stenosis of approximately 80-90%. Dominant right vertebral artery. The imaged vertebrae arteries appear patent bilaterally. There is at least m ild stenosis at the left vertebral artery origin. Moderate emphysema. No pneumothorax. Unremarkable soft tissues. Degenerative changes of the spine. IMPRESSION: 1. Advanced atherosclerosis with high grade stenosis at the origin of the right ICA. 2. High-grade stenosis at the origin of the left subclavian artery. Findings should be correlated cli nically to exclude underlying subclavian steal syndrome. 3. Patent vertebral arteries. 4. Please refer to the same day CTA of the head for additional findings. ACT 112: Negative or not required by law. The above report was generated using voice recognition software. It may contain grammatical, syntax o r spelling errors. Electronically signed by: Ryan Peacock M.D. 08/11/2025 3:50 PM
[2025-08-11 15:53] LABS: Hematocrit (blood only) 33.3 % (42.0-52.0); Hemoglobin 9.8 g/dl (14.0-18.0); Mean Corpuscular Hemoglobin 31.9 pg (25.0-34.0); Mean Corpuscular Volume 108.5 fL (80.0-100.0); Platelet Count 43 K/uL (130-400); RDW Standard Deviation 89.5 fL (36.4-46.3); Red Blood Count 3.07 M/uL (4.70-6.10); White Blood Count 15.37 K/ul (4.8-10.8)
--- NOTE | 2025-08-11 15:56 | CT Scan Report ---
CTA ANGIOGRAPHY OF THE HEAD CLINICAL HISTORY: neuro deficit, acute stroke suspected COMPARISON STUDY: No previous studies for comparison. TECHNIQUE: Helical axial images of the head were obtained following uneventful intravenous administr ation of 119 cc of Optiray. Sagittal and coronal reconstructions were viewed as well as maximal inten sity projections on an independent 3-D workstation. Automated exposure control was utilized for the study. A dose lowering technique was utilized adhering to the principles of ALARA. FINDINGS: Please note that the head CT will be reported separately. No acute intracranial hemorrhage, midline shift or mass effect is present. Ventricular system is unremarkable. White matter hypodensit y suggests small vessel disease. Note is made of a large saccular aneurysm of the right cavernous car otid which measures 2 x 1.6 cm. No additional saccular intracranial aneurysms are present. There is e xtensive atherosclerotic plaque within the bilateral cavernous carotids. There is mild fusiform dilat ation of the basilar artery which measures 8 mm in caliber. persistence of the right posterior cerebral artery is incidentally noted. The right vertebral artery is dominant. IMPRESSION: 1. 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 Nonemergent Neur osurgical consultation is recommended. No additional saccular aneurysms. 2. No large vessel occlusion. 3. 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 4. Extensive atherosclerotic plaque within bilateral cavernous carotids. ACT 112: Positive. There are findings on this exam that require communication between the performing entity and the patient following Patient Test Result Information Act ([place] Act 112) guidelines. Electronically signed by: Kam Barry M.D. 08/11/2025 3:55 PM
[2025-08-11 15:58] LABS: Alanine Aminotransferase 23.0 U/L (7-52); Albumin Globulin Ratio 1.2 (0.9-2); Albumin Level 3.8 gm/dl (3.4-5.0); Alkaline Phosphatase 67.0 U/L (34-104); Anion Gap 9.0 (3-11); Bilirubin,Total 0.9 mg/dl (0.2-1.0); Blood Urea Nitrogen 13.0 mg/dl (6-23); Calcium 9.3 mg/dl (8.6-10.3); Carbon Dioxide 28.0 mmol/L (21-32); Chloride 96.0 mmol/L (98-107); Creatinine Clr Calc Pharmacy 88.6 ml/min; Globulin 3.3 gm/dl (2.5-4.0); Glucose 128.0 mg/dl (70-99(Fasting)); Magnesium 2.2 mg/dl (1.7-2.4); Potassium 4.2 mmol/L (3.5-5.1); Sodium 133.0 mmol/L (136-145); Total Protein 7.1 gm/dl (6.0-8.3)
[2025-08-11 16:07] LABS: INR 1.1 (0.9-1.1); Partial Thromboplastin Time 28 Seconds (21-31); Prothrombin Time 11.7 Seconds (9.0-12.0)
--- NOTE | 2025-08-11 16:09 | Emergency Department Note ---
Impression & Plan Left arm weakness ED Provider Note ED Provider Note NAME: GILMA AVILA AGE:70 SEX: Male : 1955 ARRIVES VIA: EMS INFORMANT: Patient ED PROVIDER(s): Mariajose Ellis DO CHIEF COMPLAINT: LUE weakness HPI: This is a 70-year-old male presents to the emergency department via EMS due to concern for abrupt onset of left upper extremity weakness that began at 1430 while he was seated in his residence watching television. Patient is right-hand dominant. Patient denies any recent injury or change in activities involving the left upper extremity. Patient denies any lower extremity weakness, vision changes, headaches, dizziness, difficulty speaking, or paresthesias. Patient most concern for stroke. He states he does have a history of leukemia and his medications were being changed recently but he does not recall the names. He denies any prior history of stroke. Patient does not use any anticoagulation. He denies any recent fevers, chills, or URI symptoms. He denies any current chest pain, shortness of breath, abdominal pain, or nausea. I requested a stroke alert be called after my bedside evaluation. PAST MEDICAL HISTORY:See Below PAST SURGICAL HISTORY:See Below FAMILY HISTORY:See Below SOCIAL HISTORY:See Below HOME MEDICATIONS:See Below ALLERGIES:See Below VITALS:See Below PHYSICAL EXAMINATION: GENERAL: alert, well appearing, well nourished, no distress, non-toxic EYE EXAM: normal conjunctiva, PERRL and EOM's grossly intact OROPHARYNX: no exudate, no erythema, lips, buccal mucosa, and tongue normal and mucous membranes are moist NECK: supple, no nuchal rigidity, no adenopathy, non-tender LUNGS: Clear to auscultation. Normal chest wall mechanics, no w/r/r HEART: no murmurs, S1 normal and S2 normal ABDOMEN: abdomen soft, non-tender, normo-active bowel sounds, no masses, no rebound or guarding. BACK: Back is symmetrical on inspection and there is no deformity, no midline tenderness, no CVA tenderness. SKIN: no rashes, petechiae, orbruising UPPER EXTREMITIES: upper extremities are grossly normal. FROM, nml pulses b/l. Patient with significant weakness noted with extension of the left wrist as well as handgrip of the left wrist, patient is able to raise the arm from the shoulder and can hold up without any drop or ataxia LOWER EXTREMITIES: No pitting edema. FROM, nml pulses b/l. NEURO EXAM: Normal sensorium, cranial nerves II-XII grossly intact, normal speech, no facial droop,gross weakness of left hand/wrist, no gross weakness of legs. Gross sensation intact. No ataxia.NIHSS 2. Vital Signs: reviewed and remarkable Differential Diagnosis: ischemic Stroke, hemorrhagic stroke, bells palsy, mass, neoplasm, migraine headache, seizure, subarachnoid hemorrhage, TIA, transient global amnesia, medication ADR, as well as others were considered MEDICAL DECISION MAKING: This is a 70-year-old male presents emergency department due to evaluation for left upper extremity weakness. On exam patient is weakness seems most notable distally to the left upper extremity involving the wrist and hand. No other additional findings consistent with stroke. Initial NIH stroke score 2. A stroke alert was called given he was within the window for possible TNK and with unclear other etiology to explain his symptoms. He was otherwise afebrile and hemodynamically stable. Labs drawn and sent, IV established, EKG and chest were performed at bedside and interpreted by me. The patient was sent urgently for CT/CTA and was monitored on telemetry. I did speak with the on-call [facility] neurologist who did perform an evaluation at bedside via the stroke cart. He initially recommended after evaluating the patient that I have an in-house neurologist, and evaluate him for if that is not possible to seek a stat MRI of the patient's brain to further evaluate for stroke. We do not have any in-house neurologist available, I did speak on the phone with Dr. Dominguez. Stat MRI was also not available as patient does have a device and this would need to be scheduled tomorrow and conjunction with a [employer] rep being present. We did call and update the neurologist at [facility] again. He called back and spoke with the patient and his again at bedside which I was present for and did offer him TNK after discussing his evaluation and unclear diagnosis as well as risk versus benefits. Patient declined which I was present for and did offer him TNK after discussing his evaluation and unclear diagnosis as well as risk versus benefits. Patient declined TNK. He did verbalize understanding that was a stroke that was not identified until an MRI tomorrow, he may be left with permanent deficits. Patient remained hemodynamically stable otherwise. We did discuss other vascular findings and they state they have an upcoming vascular study on August 20. Case discussed with the hospitalist team for further evaluation and management. Consultation(s): 1544: Discussed with Dr. Benítez, [facility] [place]. 1600: Discussed with Dr. Benítez again. 1634: DIscussed with Dr. Dominguez who is not in the hospital and states he can evaluate the patient tomorrow. 1715: Discussed at bedside with Dr. Benítez and patient/ again. He was offered TNK and declined. 1756: DIscussed with Dr. Carbajal, [place] hospitalist team, for additional evaluation and mgmt. ER Treatment Provided: See below Diagnostics Interpreted By Me: -ECG: Paced at a rate of 74, leftward axis, right bundle branch block, baseline artifact noted, nonspecific ST/T wave changes -Cardiac Monitoring: An order was placed for continuous cardiac monitoring. The monitor shows a rate of 78 with normal sinus rhythm. -Laboratory studies: As stated above and show below. -Imaging studies: X-ray Chest: A single view study of the chest was reviewed and was negative for cardiomegaly, focal infiltrate, effusion, pulmonary edema, or wide mediastinum. Triage Nursing Note Reviewed Prior/Outside Records Reviewed Critical Care: Critical care of 52 min performed to assess and manage high likelihood of life-threatening CVA, involving labs and imaging performed with assessment to evaluate left upper extremity weakness diagnosis with frequent reassessment. This time includes bedside time, treatment discussions with patient/family/consultants, documentation time and excludes procedure time. 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 (Acute) Pacemaker Incisional hernia Sick sinus syndrome (Chronic 2005) [employer]itronic Dual chamber pacemaker placed 01/02/2006 Abdominal aortic aneurysm S/P REPAIR 12 YEARS PRIOR, [facility] Medical History (Updated 08/11/25 @ 16:36 by Mariajose Ellis DO) Hyperlipidemia GERD (gastroesophageal reflux disease) Apneic episode Acute heart failure with mildly reduced ejection fraction (HFmrEF, 41-49%) Alcohol use disorder CAD (coronary artery disease) (1998) Cardiac Catheterization revealed 100% RCA occlusion with well developed collaterals with stenosis of obtuse marginal and left circumflex with stent placement. Rectal bleeding Bailey esophagus Hypertension Surgical History History of cataract surgery LEFT History of colonoscopy History of esophagogastroduodenoscopy (EGD) History of AAA (abdominal aortic aneurysm) repair History of surgery LEFT HAND REATTACHED AFTER TRAUMA (30+YEARS AGO). PT HAS SOME NUMBNESS AND TINGLING BUT HAS FULL FUNCTION. History of surgery REPAIR OF DEVIATED SEPTUM History of herniorrhaphy MULTIPLE, INCLUDING UMBILICAL History of cardiac cath ANGIOPLASTY X2, STENT PLACEMENT (20 YEARS AGO) Family History Father Diabetes Myocardial infarction Hypertension Mother Diabetes Hypertension Gall bladder disease Other No family history of adverse response to anesthesia Denies family history of Ovarian cancer Prostate cancer Breast cancer Lung cancer Colorectal cancer Social History Smoking Status: Never smoker Tobacco Type: Cigarettes Age Started Using Tobacco: 16; Age Quit Using Tobacco: 46; packs per day: 1; Cigarettes Per Day: quit 15 years; Second Hand Exposure: No; Do You Dip or Chew Tobacco: No; Hx Alcohol Use: No Hx Substance Use: No Preferred Language: Cape Verdean Communication Ability: Effective Visual Impairment: Limited Hearing Ability: Normal Forest Manager Required: No Beliefs That Will Affect Care: None marital status: Current Living Situation: Family current occupational status: retired How many Children do You have Comment: 1 adult step son Feels Safe at Home: Yes Childhood Exposure to Second-Hand Smoke: No Diet: other Diet Comment: Mediterranean diet caffeine: Yes during the past year weight has: decreased > 10 lbs Dental Care, Regularly: No Physical Activity Frequency: Does not Exercise Seatbelt Use: always Sunscreen Use: No Do you think of yourself as: straight/heterosexual Gender Identity: Male Assistive Devices: Cane and Walker Allergies Allergies Allergy/AdvReac Type Severity Reaction Status Date / Time escitalopram [From Lexapro] AdvReac Intermediate BECAME Verified 06/25/25 08:51 MORE DEPRESSED Home Meds Home Medications Medication Instructions Recorded Confirmed aspirin 81 mg tablet,delayed 81 mg PO HS 01/03/25 08/11/25 release ruxolitinib 5 mg tablet (Jakafi) 5 mg PO BID 05/30/25 08/11/25 baclofen 10 mg tablet 10 mg PO TID PRN MUSCLE SPASMS 06/02/25 08/11/25 omeprazole 20 mg capsule,delayed 20 mg PO DAILY 08/11/25 08/11/25 release oxycodone 10 mg tablet 10 mg PO .EVERY 4-6 HOURS PRN Pain 08/11/25 08/11/25 oxycodone 15 mg tablet,crush 15 mg PO Q12 08/11/25 08/11/25 resistant,extended release 12 hr (OxyContin) pacritinib 100 mg capsule (Vonjo) 100 mg PO UD 08/11/25 08/11/25 prochlorperazine maleate 10 mg 10 mg PO Q6 PRN Nausea 08/11/25 08/11/25 tablet Previous Rx's Medication Instructions Recorded nitroglycerin 0.4 mg sublingual 0.4 mg sublingual UD PRN Chest 06/26/24 tablet (Nitrostat) Pain #25 tabs metoprolol succinate 100 mg 100 mg PO BID #180 tabs 01/14/25 tablet,extended release 24 hr amlodipine 10 mg-benazepril 40 mg 1 cap PO QAM #90 caps 03/24/25 capsule docusate sodium 100 mg capsule 100 mg PO BID #60 caps 06/04/25 polyethylene glycol 3350 17 gram 17 g PO BID #0 ea 06/04/25 oral powder packet (Miralax) Results & Data (ED) Vital Signs Vital Signs - 24 hr 08/11/25 14:58 08/11/25 15:20 08/11/25 15:38 Temperature 36.7 C Temperature Source Oral Pulse Rate 78 67 Pulse Rate [Apical] Pulse Rate from SpO2 Sensor Respiratory Rate 15 16 Respiratory Effort / Characteristics Respiratory Depth Blood Pressure 147/70 H 147/70 H Blood Pressure [Right Arm] Blood Pressure Mean 95 94 Blood Pressure Mean [Right Arm] Pulse Oximetry 93 93 95 Oxygen Delivery Method Room Air Room Air Sepsis Recent Fever Within 48 Hours No Sepsis New/Unexplained Change in Mental Status N/A Sepsis Action Taken by Nursing No Action Required 08/11/25 15:59 08/11/25 15:59 08/11/25 16:00 Temperature Temperature Source Pulse Rate 84 Pulse Rate [Apical] Pulse Rate from SpO2 Sensor 85 Respiratory Rate 28 H Respiratory Effort / Characteristics Respiratory Depth Blood Pressure 148/82 H 148/82 H Blood Pressure [Right Arm] Blood Pressure Mean 110 110 Blood Pressure Mean [Right Arm] Pulse Oximetry 98 Oxygen Delivery Method Sepsis Recent Fever Within 48 Hours Sepsis New/Unexplained Change in Mental Status Sepsis Action Taken by Nursing 08/11/25 16:03 08/11/25 16:12 08/11/25 16:12 Temperature Temperature Source Pulse Rate 73 Pulse Rate [Apical] Pulse Rate from SpO2 Sensor 73 Respiratory Rate 21 Respiratory Effort / Characteristics Respiratory Depth Blood Pressure 163/87 H 163/87 H Blood Pressure [Right Arm] Blood Pressure Mean 107 107 Blood Pressure Mean [Right Arm] Pulse Oximetry 96 Oxygen Delivery Method Sepsis Recent Fever Within 48 Hours Sepsis New/Unexplained Change in Mental Status Sepsis Action Taken by Nursing 08/11/25 16:21 08/11/25 16:24 08/11/25 16:37 Temperature Temperature Source Pulse Rate 68 68 Pulse Rate [Apical] Pulse Rate from SpO2 Sensor 69 68 Respiratory Rate 14 24 Respiratory Effort / Characteristics Respiratory Depth Blood Pressure 160/63 H Blood Pressure [Right Arm] Blood Pressure Mean 110 Blood Pressure Mean [Right Arm] Pulse Oximetry 96 95 Oxygen Delivery Method Sepsis Recent Fever Within 48 Hours Sepsis New/Unexplained Change in Mental Status Sepsis Action Taken by Nursing 08/11/25 16:37 08/11/25 16:39 08/11/25 16:42 Temperature Temperature Source Pulse Rate 70 67 Pulse Rate [Apical] Pulse Rate from SpO2 Sensor 70 67 Respiratory Rate 14 19 Respiratory Effort / Characteristics Respiratory Depth Blood Pressure 160/63 H Blood Pressure [Right Arm] Blood Pressure Mean 110 Blood Pressure Mean [Right Arm] Pulse Oximetry 95 94 Oxygen Delivery Method Sepsis Recent Fever Within 48 Hours Sepsis New/Unexplained Change in Mental Status Sepsis Action Taken by Nursing 08/11/25 16:57 08/11/25 17:00 08/11/25 17:00 Temperature Temperature Source Pulse Rate 64 Pulse Rate [Apical] 67 Pulse Rate from SpO2 Sensor 65 Respiratory Rate 22 21 Respiratory Effort / Characteristics Non-Labored Spontaneous Respiratory Depth Normal Blood Pressure 130/68 Blood Pressure [Right Arm] 130/68 Blood Pressure Mean 85 Blood Pressure Mean [Right Arm] 88 Pulse Oximetry 92 93 Oxygen Delivery Method Room Air Sepsis Recent Fever Within 48 Hours Sepsis New/Unexplained Change in Mental Status Sepsis Action Taken by Nursing 08/11/25 17:00 08/11/25 17:08 08/11/25 17:09 Temperature Temperature Source Pulse Rate 74 71 Pulse Rate [Apical] Pulse Rate from SpO2 Sensor 71 Respiratory Rate 21 Respiratory Effort / Characteristics Respiratory Depth Blood Pressure 130/68 Blood Pressure [Right Arm] Blood Pressure Mean 85 Blood Pressure Mean [Right Arm] Pulse Oximetry 94 Oxygen Delivery Method Sepsis Recent Fever Within 48 Hours Sepsis New/Unexplained Change in Mental Status Sepsis Action Taken by Nursing 08/11/25 17:18 08/11/25 17:24 08/11/25 17:27 Temperature Temperature Source Pulse Rate 65 65 64 Pulse Rate [Apical] Pulse Rate from SpO2 Sensor 66 65 64 Respiratory Rate 16 16 17 Respiratory Effort / Characteristics Respiratory Depth Blood Pressure Blood Pressure [Right Arm] Blood Pressure Mean Blood Pressure Mean [Right Arm] Pulse Oximetry 93 91 91 Oxygen Delivery Method Sepsis Recent Fever Within 48 Hours Sepsis New/Unexplained Change in Mental Status Sepsis Action Taken by Nursing 08/11/25 17:30 08/11/25 17:30 08/11/25 17:54 Temperature Temperature Source Pulse Rate 64 Pulse Rate [Apical] Pulse Rate from SpO2 Sensor 64 Respiratory Rate 18 Respiratory Effort / Characteristics Respiratory Depth Blood Pressure 119/59 L 119/59 L Blood Pressure [Right Arm] Blood Pressure Mean 78 78 Blood Pressure Mean [Right Arm] Pulse Oximetry 91 Oxygen Delivery Method Sepsis Recent Fever Within 48 Hours Sepsis New/Unexplained Change in Mental Status Sepsis Action Taken by Nursing 08/11/25 18:00 08/11/25 18:00 08/11/25 18:00 Temperature Temperature Source Pulse Rate 71 Pulse Rate [Apical] Pulse Rate from SpO2 Sensor Respiratory Rate 17 Respiratory Effort / Characteristics Respiratory Depth Blood Pressure 134/58 L 134/58 L Blood Pressure [Right Arm] Blood Pressure Mean 98 98 Blood Pressure Mean [Right Arm] Pulse Oximetry Oxygen Delivery Method Sepsis Recent Fever Within 48 Hours Sepsis New/Unexplained Change in Mental Status Sepsis Action Taken by Nursing Laboratory Data 08/11/25 15:24 08/11/25 15:24 Lab Results 08/11/25 Range/Units 15:24 WBC 15.37 H (4.8-10.8) K/ul RBC 3.07 L (4.70-6.10) M/uL Hgb 9.8 L (14.0-18.0) g/dl Hct 33.3 L (42.0-52.0) % MCV 108.5 H (80.0-100.0) fL MCH 31.9 (25.0-34.0) pg MCHC 29.4 L (32.0-36.0) g/dL RDW Std Deviation 89.5 H (36.4-46.3) fL RDW Coeff of Dominique 22.3 H (11.5-14.5) % Plt Count 43 L (130-400) K/uL Absolute Nucleated RBC 0.51 H (0.00-0.12) K/uL Nucleated RBC % (auto) 3.3 % Neutrophils % (Manual) 54 % Lymphocytes % (Manual) 23 % Monocytes % (Manual) 4 % Eosinophils % (Manual) 1 % Basophils % (Manual) 4 % Metamyelocytes % (Man) 5 % Myelocytes % (Man) 3 % Promyelocytes % (Man) 2 % Blast Cells % (Manual) 4 % Neutrophils # (Manual) 8.30 H (1.40-6.50) K/uL Total Absolute Neuts 8.30 H (1.4-6.5) K/uL Lymphocytes # (Manual) 3.54 H (1.2-3.4) K/uL Total Abs Lymphocytes 3.54 H (1.2-3.4) K/uL Monocytes # (Manual) 0.61 H (0.11-0.59) K/uL Eosinophils # (Manual) 0.15 (0-0.50) K/uL Basophils # (Manual) 0.61 H (0-0.2) K/uL Metamyelocytes # (Man) 0.77 H (0-0) K/uL Myelocytes # (Manual) 0.46 H (0-0) K/uL Promyelocytes # (Man) 0.31 H (0-0) K/uL Blast Cells # (Man) 0.61 H (0-0) K/uL Anisocytosis Present Target Cells 1+ Tear Drop Cells 1+ Stomatocytes 2+ PT 11.7 (9.0-12.0) Seconds INR 1.1 (0.9-1.1) APTT 28 (21-31) Seconds PTT Ratio 1.0 Sodium 133 L (136-145) mmol/L Potassium 4.2 (3.5-5.1) mmol/L Chloride 96 L (98-107) mmol/L Carbon Dioxide 28 (21-32) mmol/L Anion Gap 9 (3-11) BUN 13 (6-23) mg/dl Creatinine 0.79 (0.6-1.4) mg/dl Est Cr Clr Drug Dosing 88.6 ml/min eGFR 94.98 BUN/Creatinine Ratio 16.5 (10-20) Glucose 128 H (70-99(Fasting)) mg/dl Calcium 9.3 (8.6-10.3) mg/dl Magnesium 2.2 (1.7-2.4) mg/dl Total Bilirubin 0.9 (0.2-1.0) mg/dl AST 20 (13-39) U/L ALT 23 (7-52) U/L Alkaline Phosphatase 67 (34-104) U/L Troponin I High Sens 17.9 (0-20) pg/ml Total Protein 7.1 (6.0-8.3) gm/dl Albumin 3.8 (3.4-5.0) gm/dl Globulin 3.3 (2.5-4.0) gm/dl Albumin/Globulin Ratio 1.2 (0.9-2) Blood Type A Positive Antibody Screen NEGATIVE Administered Medications Aspirin (Aspirin 81 Mg Ectab) 81 mg PO HS LIZBETH Stop: 09/10/25 20:59 Last Admin: 08/11/25 20:37 Dose: 81 mg Documented By: PIEDAD Docusate Sodium (Docusate Sodium 100 Mg Cap) 100 mg PO BID LIZBETH Stop: 09/10/25 20:59 Last Admin: 08/11/25 20:44 Dose: 100 mg Documented By: PIEDAD Heparin Sodium (Porcine) (Heparin Sod 5,000 Unit/0.5 Ml Vial) 5,000 units SQ Q12 LIZBETH Stop: 09/10/25 20:59 Last Admin: 08/11/25 20:44 Dose: 5,000 units Documented By: PIEDAD Sodium Chloride (Nss) 1,000 mls @ 75 mls/hr IV .[id number] LIZBETH Stop: 08/14/25 19:52 Last Admin: 08/11/25 20:39 Dose: 75 mls/hr Documented By: PIEDAD Metoprolol Succinate (Metoprolol Succ 50mg Ext Rel Tab) 100 mg PO BID LIZBETH Stop: 09/10/25 20:59 Last Admin: 08/11/25 20:37 Dose: 100 mg Documented By: PIEDAD Miscellaneous (Order Awaiting Action Pacritinib [Vonjo] 100 Mg Capsule) 1 each N/A QS LIZBETH Stop: 09/10/25 20:14 Last Admin: 08/11/25 20:39 Dose: Not Given Documented By: PIEDAD Miscellaneous (Icu Protocol For Hyperglycemia) 1 each N/A ACHS LIZBETH Stop: 08/13/25 20:59 Last Admin: 08/11/25 23:14 Dose: Not Given Documented By: PIEDAD Polyethylene Glycol (Polyethylene (Miralax) 17 Gm Pack) 17 gm PO BID LIZBETH Stop: 09/10/25 20:59 Last Admin: 08/11/25 20:40 Dose: Not Given Documented By: PIEDAD Discontinued Medications Ioversol (Optiray 320 125ml) 119 ml IV ONCE ONE Stop: 08/11/25 15:33 Last Admin: 08/11/25 15:32 Dose: 119 ml Documented By: CHELO Imaging Data Radiologist's Impression: Chest X-Ray 08/11/25 15:21 Technique: A frontal view of the chest was obtained Findings: There are no confluent pulmonary infiltrates. The heart size is within normal limits. No pleural effusion or pneumothorax is seen. There is no definite pulmonary nodule. No fracture is noted. There is a left chest wall pacemaker device Impression: No active disease Electronically signed by Wilmer Pemberton 08-11-2025 5:[address] 08/11/25 15:21 CT head/brain wo con CLINICAL HISTORY: neuro deficit, acute stroke suspected. TECHNIQUE: Multiple axial CT images of the head were obtained without contrast. A dose lowering technique was utilized adhering to the principles of ALARA. COMPARISON: None FINDINGS: No intracranial hemorrhage seen. No mass effect, midline shift, or hydrocephalus. There are mild chronic small vessel ischemic changes. No skull fracture seen. Visualized paranasal sinuses and mastoid air cells are clear. IMPRESSION: No acute findings. ACT 112: Negative or not required by law. The above report was generated using voice recognition software. It may contain grammatical, syntax or spelling errors. Electronically signed by: Steve Martinez M.D. 08/11/2025 3:42 PM Head CTA 08/11/25 15:21 CTA ANGIOGRAPHY OF THE HEAD CLINICAL HISTORY: neuro deficit, acute stroke suspected COMPARISON STUDY: No previous studies for comparison. TECHNIQUE: Helical axial images of the head were obtained following uneventful intravenous administration of 119 cc of Optiray. Sagittal and coronal reconstructions were viewed as well as maximal intensity projections on an independent 3-D workstation. Automated exposure control was utilized for the study. A dose lowering technique was utilized adhering to the principles of ALARA. FINDINGS: Please note that the head CT will be reported separately. No acute intracranial hemorrhage, midline shift or mass effect is present. Ventricular system is unremarkable. White matter hypodensity suggests small vessel disease. Note is made of a large saccular aneurysm of the right cavernous carotid which measures 2 x 1.6 cm. No additional saccular intracranial aneurysms are present. There is extensive atherosclerotic plaque within the bilateral cavernous carotids. There is mild fusiform dilatation of the basilar artery which measures 8 mm in caliber. persistence of the right posterior cerebral artery is incidentally noted. The right vertebral artery is dominant. IMPRESSION: 1. 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 Nonemergent Neurosurgical consultation is recommended. No additional saccular aneurysms. 2. No large vessel occlusion. 3. 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 4. Extensive atherosclerotic plaque within bilateral cavernous carotids. ACT 112: Positive. There are findings on this exam that require communication between the performing entity and the patient following Patient Test Result Information Act ([place] Act 112) guidelines. Electronically signed by: Kam Barry M.D. 08/11/2025 3:55 PM Neck CTA 08/11/25 15:21 CT angio neck with con CLINICAL HISTORY: 70 years-old Male with neuro deficit, acute stroke suspected. Acute stroke like symptoms COMPARISON STUDY: Head CT of same day TECHNIQUE: Following the IV administration of 119 mL of Optiray, CT angiogram of the neck was performed from the aortic arch to the skull base. Images are reviewed in the axial, sagittal, and coronal planes. 3-D MIPS images are created and assessed. IV contrast was administered without complication. All measurements were calculated based on NASCET criteria. A dose lowering technique was utilized adhering to the principles of ALARA. CT DOSE: 1150.42 mGy.cm FINDINGS: Left subclavian pacer. Moderate to extensive atherosclerosis of the thoracic aortic arch causes high-grade stenosis at the origin of the left subclavian artery. Atherosclerosis of the left carotid bulb in proximal left ICA causes narrowing of up to approximately 50%. Prominent calcified plaque at the right carotid bulb and proximal right ICA causes high-grade stenosis of approximately 80-90%. Dominant right vertebral artery. The imaged vertebrae arteries appear patent bilaterally. There is at least mild stenosis at the left vertebral artery origin. Moderate emphysema. No pneumothorax. Unremarkable soft tissues. Degenerative changes of the spine. IMPRESSION: 1. Advanced atherosclerosis with high grade stenosis at the origin of the right ICA. 2. High-grade stenosis at the origin of the left subclavian artery. Findings should be correlated clinically to exclude underlying subclavian steal syndrome. 3. Patent vertebral arteries. 4. Please refer to the same day CTA of the head for additional findings. ACT 112: Negative or not required by law. The above report was generated using voice recognition software. It may contain grammatical, syntax or spelling errors. Electronically signed by: Ryan Peacock M.D. 08/11/2025 3:50 PM Discharge Plan Visit Data Chief Complaint: Stroke Alert ED Provider: Mariajose Ellis Discharge Problem: Left arm weakness Patient Disposition: Admitted As Inpatient Condition: Fair Discharge Instructions Interventions: ED Discharge Assessment Last Done: 08/11/25 19:53
[2025-08-11 16:38] LABS: ALC (manual) 3.54 K/uL (1.2-3.4); ANC (manual) 8.30 K/uL (1.4-6.5); Anisocytosis Present; Blast # (manual) 0.61 K/uL (0-0); Stomatocytes 2+; Target Cells 1+; Tear Drop Cells 1+
--- NOTE | 2025-08-11 17:17 | XRay Report ---
Technique: A frontal view of the chest was obtained Findings: There are no confluent pulmonary infiltrates. The heart size is within normal limits. No pleural effusion or pneumothorax is seen. There is no definite pulmonary nodule. No fracture is noted. There is a left chest wall pacemaker device Impression: No active disease Electronically signed by Wilmer Pemberton 08-11-2025 5:17 PM
--- NOTE | 2025-08-11 19:14 | History & Physical Report ---
Date of Service August 11, 2025 Assessment & Plan (1) Left arm weakness: (2) Cardiomyopathy: (3) CHF (congestive heart failure): (4) COPD (chronic obstructive pulmonary disease): (5) Vitamin D deficiency: (6) Pacemaker: (7) Sick sinus syndrome: (8) Acute heart failure with mildly reduced ejection fraction (HFmrEF, 41-49%): (9) CAD (coronary artery disease): (10) Hypertension: Plan #strokelike symptoms #left hand weakness #partial stocking-glove/well-demarcated peripheral mononeuropathy - Undifferentiated, stable but acute, Will broaden differential beyond stroke, most consistent with peripheral mononeuropathy however cannot rule out secondary etiology or atypical stroke/seizure presentation - see teleneurology consult, admit telemetry, patient elects for routine evaluation here, MRI in the morning. - telemetry monitoring, serial neurologic examination, morning labs including vitamin D, B12, TSH, CBC, CMP, magnesium, folate, ESR, CRP, procalcitonin, tickborne panel - consider BioFire although no generalized symptoms of illness at this time - seizure precaution - stroke bundle with bedside swallow evaluation then cardiac diet - resume home medications otherwise - MRI MRA in the morning - consult to neurology #history of CHF/ HFpEF - stable, no indication of decompensation at this time - telemetry monitoring, electrolytes as above, gentle fluid resuscitation through the night #severe protein calorie malnutrition - 50 pound weight loss over the course of the last year with ongoing increased metabolic demands, very poor appetite history of Bailey's esophagus - dysphagia assessment, speech therapy and dietary/nutrition evaluation #leukemia - undifferentiated at this time, no immediate records available, will request - early in the treatment cycle following with Dr. Mendoza, whom he is following with in the outpatient setting - consult to Dr. Mendoza # history of vitamin D deficiency, multiple electrolyte deficiencies - labs as above, routine monitoring, telemetry. #palliative care patient - follows with Dr. Steen, will consult them on admission # FEN - following bedside dysphagia evaluation will start cardiac diet, speech therapy and nutrition consult on admission as above #CODE STATUS - full code per his wishes History of Present Illness Chief Complaint: Cant lift my left hand Primary Care Provider: Sarika Lin DO 70-year-old upkod-[id number] male ongoing initial treatment for leukemia, COPD, CHF, renal artery stenosis, Bailey's esophagus, pacemaker/sick sinus syndrome, history of repaired aortic aneurysm, history of recurrent electrolyte abnormalities presented to the emergency department with abrupt onset left hand weakness while watching TV this afternoon approximately 2:30 in the afternoon. States he has never had symptoms like in the past has a distant history of near severing of that left arm just about the region where the symptoms started. States he was watching TV he noticed he could not lift his left hand notified his and was brought directly here for evaluation under stroke alert. Symptoms have not changed or progressed or improved since onset. Initial evaluation in the emergency department with head CT, telestroke neurology evaluation Offered alteplase, patient felt it was not worth the ris ks. Advised for MRI and bedside neurology evaluation. Patient elected for admission here for MRI [facility] in lieu of transfer to larger stroke center. He has a pacemaker so we will need to coordinate this for imaging. He was referred to admission with strokelike symptoms, stable presentation consistent with peripheral neuropathy. Referred for further evaluation, imaging and treatment as needed Allergies Allergy/AdvReac Type Severity Reaction Status Date / Time escitalopram [From Lexapro] AdvReac Intermediate BECAME Verified 06/25/25 08:51 MORE DEPRESSED Home Medications Medication Instructions Recorded Confirmed Type nitroglycerin 0.4 mg sublingual 0.4 mg sublingual UD PRN Chest 06/26/24 08/11/25 Rx tablet (Nitrostat) Pain #25 tabs aspirin 81 mg tablet,delayed 81 mg PO HS 01/03/25 08/11/25 History release metoprolol succinate 100 mg 100 mg PO BID #180 tabs 01/14/25 08/11/25 Rx tablet,extended release 24 hr amlodipine 10 mg-benazepril 40 mg 1 cap PO QAM #90 caps 03/24/25 08/11/25 Rx capsule ruxolitinib 5 mg tablet (Jakafi) 5 mg PO BID 05/30/25 08/11/25 History baclofen 10 mg tablet 10 mg PO TID PRN MUSCLE SPASMS 06/02/25 08/11/25 History docusate sodium 100 mg capsule 100 mg PO BID #60 caps 06/04/25 08/11/25 Rx polyethylene glycol 3350 17 gram 17 g PO BID #0 ea 06/04/25 08/11/25 Rx oral powder packet (Miralax) omeprazole 20 mg capsule,delayed 20 mg PO DAILY 08/11/25 08/11/25 History release oxycodone 10 mg tablet 10 mg PO .EVERY 4-6 HOURS PRN Pain 08/11/25 08/11/25 History oxycodone 15 mg tablet,crush 15 mg PO Q12 08/11/25 08/11/25 History resistant,extended release 12 hr (OxyContin) pacritinib 100 mg capsule (Vonjo) 100 mg PO UD 08/11/25 08/11/25 History prochlorperazine maleate 10 mg 10 mg PO Q6 PRN Nausea 08/11/25 08/11/25 History tablet 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 (Acute) Pacemaker Incisional hernia Sick sinus syndrome (Chronic 2005) Meditronic Dual chamber pacemaker placed 01/02/2006 Abdominal aortic aneurysm S/P REPAIR 12 YEARS PRIOR, [facility] Medical History (Updated 08/11/25 @ 16:36 by Mariajose Ellis DO) Hyperlipidemia GERD (gastroesophageal reflux disease) Apneic episode Acute heart failure with mildly reduced ejection fraction (HFmrEF, 41-49%) Alcohol use disorder CAD (coronary artery disease) (1998) Cardiac Catheterization revealed 100% RCA occlusion with well developed collaterals with stenosis of obtuse marginal and left circumflex with stent placement. Rectal bleeding Bailey esophagus Hypertension Surgical History History of cataract surgery LEFT History of colonoscopy History of esophagogastroduodenoscopy (EGD) History of AAA (abdominal aortic aneurysm) repair History of surgery LEFT HAND REATTACHED AFTER TRAUMA (30+YEARS AGO). PT HAS SOME NUMBNESS AND TINGLING BUT HAS FULL FUNCTION. History of surgery REPAIR OF DEVIATED SEPTUM History of herniorrhaphy MULTIPLE, INCLUDING UMBILICAL History of cardiac cath ANGIOPLASTY X2, STENT PLACEMENT (20 YEARS AGO) Family History Father Diabetes Myocardial infarction Hypertension Mother Diabetes Hypertension Gall bladder disease Other No family history of adverse response to anesthesia Denies family history of Ovarian cancer Prostate cancer Breast cancer Lung cancer Colorectal cancer Social History Smoking Status: Former smoker Tobacco Type: Cigarettes Age Started Using Tobacco: 16; Age Quit Using Tobacco: 46; packs per day: 1; Cigarettes Per Day: quit 15 years; Second Hand Exposure: No; Do You Dip or Chew Tobacco: No; Hx Alcohol Use: Yes Alcohol type: beer Hx Substance Use: Yes Last Used Substance: Days (ago) Last Used Substance Other:: 5 days ago Preferred Language: Kyrgyz Communication Ability: Effective Visual Impairment: Limited Hearing Ability: Normal Group Practice Pediatrician Required: No Beliefs That Will Affect Care: None marital status: Current Living Situation: Spouse current occupational status: retired How many Children do You have Comment: 1 adult step son Feels Safe at Home: Yes Childhood Exposure to Second-Hand Smoke: No Diet: other Diet Comment: Mediterranean diet caffeine: Yes during the past year weight has: decreased > 10 lbs Dental Care, Regularly: No Physical Activity Frequency: Does not Exercise Seatbelt Use: always Sunscreen Use: No Do you think of yourself as: straight/heterosexual Gender Identity: Male Assistive Devices: Cane and Walker Review of Systems Constitutional: positive for 50 pounds weight loss over the last year, no fevers chills recent illness nausea vomiting or diarrhea Eyes: sclera clear Respiratory: clear to auscultation bilaterally, mild prolongation of expiratory phase Cardiovascular: Additional Comments: regular rate and rhythm no tachycardia Musculoskeletal: see neuro, no other focal changes Integumentary: no rash or discoloration Neurologic: numbness over the dorsum of the left hand as noted in HPI Physical Exam Constitutional: alert and oriented no apparent distress, reports feeling very cold which is not unusual for him Eyes: sclera clear and anicteric, pupils equal round reactive to light, extraocular movements intact ENMT: mucous membranes moist Neck: no evident bruit Respiratory: clear to auscultation bilaterally Cardiovascular: regular rate and rhythm no murmurs rubs or gallops Musculoskeletal: normal gait, normal movement except in the left hand Skin: no rash or discoloration Neurologic: NIH stroke scale unremarkable. He has a very localizable weakness to extension of all of the digits of the left hand, intact strength to flexion in all digits. Unable to extend at the wrist. There is a well-demarcated sensory change and a wedge distribution from the midpoint of the left forearm just under the bandage from IV start and route in the ambulance. Psychiatric: Mildly anxious but otherwise intact, appropriate, normal thinking, logical and rational. Results & Data Results & Data Vital Signs (Past 12 Hours) Vital Signs Temp Pulse Pulse Resp BP BP Pulse Ox 08/11/25 17:08 74 08/11/25 17:00 67 21 130/68 93 08/11/25 15:38 67 16 147/70 H 95 08/11/25 15:20 93 08/11/25 14:58 36.7 C 78 15 147/70 H 93 O2 Del Method 08/11/25 17:08 08/11/25 17:00 Room Air 08/11/25 15:38 08/11/25 15:20 Room Air 08/11/25 14:58 Room Air Laboratory Results 08/11/25 15:24 WBC 15.37 H RBC 3.07 L Hgb 9.8 L Hct 33.3 L MCV 108.5 H MCH 31.9 MCHC 29.4 L RDW Std Deviation 89.5 H RDW Coeff of Dominique 22.3 H Plt Count 43 L Absolute Nucleated RBC 0.51 H Nucleated RBC % (auto) 3.3 Neutrophils % (Manual) 54 Lymphocytes % (Manual) 23 Monocytes % (Manual) 4 Eosinophils % (Manual) 1 Basophils % (Manual) 4 Metamyelocytes % (Man) 5 Myelocytes % (Man) 3 Promyelocytes % (Man) 2 Blast Cells % (Manual) 4 Neutrophils # (Manual) 8.30 H Total Absolute Neuts 8.30 H Lymphocytes # (Manual) 3.54 H Total Abs Lymphocytes 3.54 H Monocytes # (Manual) 0.61 H Eosinophils # (Manual) 0.15 Basophils # (Manual) 0.61 H Metamyelocytes # (Man) 0.77 H Myelocytes # (Manual) 0.46 H Promyelocytes # (Man) 0.31 H Blast Cells # (Man) 0.61 H Anisocytosis Present Target Cells 1+ Tear Drop Cells 1+ Stomatocytes 2+ PT 11.7 INR 1.1 APTT 28 PTT Ratio 1.0 Sodium 133 L Potassium 4.2 Chloride 96 L Carbon Dioxide 28 Anion Gap 9 BUN 13 Creatinine 0.79 Est Cr Clr Drug Dosing 88.6 eGFR 94.98 BUN/Creatinine Ratio 16.5 Glucose 128 H Calcium 9.3 Magnesium 2.2 Total Bilirubin 0.9 AST 20 ALT 23 Alkaline Phosphatase 67 Troponin I High Sens 17.9 Total Protein 7.1 Albumin 3.8 Globulin 3.3 Albumin/Globulin Ratio 1.2 Blood Type A Positive Antibody Screen NEGATIVE Diagnostic Findings Chest X-Ray 08/11/25 15:21 Technique: A frontal view of the chest was obtained Findings: There are no confluent pulmonary infiltrates. The heart size is within normal limits. No pleural effusion or pneumothorax is seen. There is no definite pulmonary nodule. No fracture is noted. There is a left chest wall pacemaker device Impression: No active disease Electronically signed by Wilmer Pemberton 08-11-2025 5:[address] 08/11/25 15:21 CT head/brain wo con CLINICAL HISTORY: neuro deficit, acute stroke suspected. TECHNIQUE: Multiple axial CT images of the head were obtained without contrast. A dose lowering technique was utilized adhering to the principles of ALARA. COMPARISON: None FINDINGS: No intracranial hemorrhage seen. No mass effect, midline shift, or hydrocephalus. There are mild chronic small vessel ischemic changes. No skull fracture seen. Visualized paranasal sinuses and mastoid air cells are clear. IMPRESSION: No acute findings. ACT 112: Negative or not required by law. The above report was generated using voice recognition software. It may contain grammatical, syntax or spelling errors. Electronically signed by: Steve Martinez M.D. 08/11/2025 3:42 PM Head CTA 08/11/25 15:21 CTA ANGIOGRAPHY OF THE HEAD CLINICAL HISTORY: neuro deficit, acute stroke suspected COMPARISON STUDY: No previous studies for comparison. TECHNIQUE: Helical axial images of the head were obtained following uneventful intravenous administration of 119 cc of Optiray. Sagittal and coronal reconstru ctions were viewed as well as maximal intensity projections on an independent 3- D workstation. Automated exposure control was utilized for the study. A dose lowering technique was utilized adhering to the principles of ALARA. FINDINGS: Please note that the head CT will be reported separately. No acute intracranial hemorrhage, midline shift or mass effect is present. Ventricular system is unremarkable. White matter hypodensity suggests small vessel disease. Note is made of a large saccular aneurysm of the right cavernous carotid which measures 2 x 1.6 cm. No additional saccular intracranial aneurysms are present. There is extensive atherosclerotic plaque within the bilateral cavernous carotids. There is mild fusiform dilatation of the basilar artery which measures 8 mm in caliber. persistence of the right posterior cerebral artery is incidentally noted. The right vertebral artery is dominant. IMPRESSION: 1. 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 Nonemergent Neurosurgical consultation is recommended. No additional saccular aneurysms. 2. No large vessel occlusion. 3. 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 4. Extensive atherosclerotic plaque within bilateral cavernous carotids. ACT 112: Positive. There are findings on this exam that require communication between the performing entity and the patient following Patient Test Result Information Act ([place] Act 112) guidelines. Electronically signed by: Kam Barry M.D. 08/11/2025 3:55 PM Neck CTA 08/11/25 15:21 CT angio neck with con CLINICAL HISTORY: 70 years-old Male with neuro deficit, acute stroke suspected. Acute stroke like symptoms COMPARISON STUDY: Head CT of same day TECHNIQUE: Following the IV administration of 119 mL of Optiray, CT angiogram of the neck was performed from the aortic arch to the skull base. Images are reviewed in the axial, sagittal, and coronal planes. 3-D MIPS images are created and assessed. IV contrast was administered without complication. All measurements were calculated based on NASCET criteria. A dose lowering technique was utilized adhering to the principles of ALARA. CT DOSE: 1150.42 mGy.cm FINDINGS: Left subclavian pacer. Moderate to extensive atherosclerosis of the thoracic aortic arch causes high-grade stenosis at the origin of the left subclavian artery. Atherosclerosis of the left carotid bulb in proximal left ICA causes narrowing of up to approximately 50%. Prominent calcified plaque at the right carotid bulb and proximal right ICA causes high-grade stenosis of approximately 80-90%. Dominant right vertebral artery. The imaged vertebrae arteries appear patent bilaterally. There is at least mild stenosis at the left vertebral artery origin. Moderate emphysema. No pneumothorax. Unremarkable soft tissues. Degenerative changes of the spine. IMPRESSION: 1. Advanced atherosclerosis with high grade stenosis at the origin of the right ICA. 2. High-grade stenosis at the origin of the left subclavian artery. Findings should be correlated clinically to exclude underlying subclavian steal syndrome. 3. Patent vertebral arteries. 4. Please refer to the same day CTA of the head for additional findings. ACT 112: Negative or not required by law. The above report was generated using voice recognition software. It may contain grammatical, syntax or spelling errors. Electronically signed by: Ryan Peacock M.D. 08/11/2025 3:50 PM ECG Additional Comments: Paced rhythm Code Status & VTE Plan VTE Prophylaxis Plan VTE Prophylaxis will be ordered: Yes PG Care Time/CCT Total # of Minutes Spent Total Time Spent with Patient: Total time spent is greater than 50% in coordination of care (as documented) at patient's floor/unit and/or counseling patient: Coding Level of Care Code 14297 INT INP/OBS CARE 3/75MIN Diagnoses Left arm weakness R29.898 Cardiomyopathy I42.9 CHF (congestive heart failure) I50.9 Heart failure chronicity: acute on chronic Heart failure type: unspecified COPD (chronic obstructive pulmonary disease) J44.9 Vitamin D deficiency E55.9 Pacemaker Z95.0 Sick sinus syndrome I49.5 Acute heart failure with mildly reduced ejection fraction (HFmrEF, 41-49%) I50.21 Coronary artery disease involving [place] coronary artery of [place] heart without angina pectoris I25.10 Coronary Disease-Associated Artery/Lesion type: [place] artery Three Affiliated vs. transplanted heart: [place] heart Associated angina: without angina Hypertension I10 (3) CHF (congestive heart failure) Heart failure chronicity: acute on chronic Heart failure type: unspecified Qualified Code(s): I50.9 - Heart failure, unspecified (9) CAD (coronary artery disease) Coronary Disease-Associated Artery/Lesion type: [place] artery Three Affiliated vs. transplanted heart: [place] heart Associated angina: without angina Qualified Code(s): I25.10 - Atherosclerotic heart disease of [place] coronary artery without angina pectoris
[2025-08-11] MEDS ORDERED: BACLOFEN 10 MG TAB PO PRN (19:53)
[2025-08-11] MEDS ORDERED: PROCHLORPERAZINE MALEATE 10 MG TAB PO PRN (19:53)
[2025-08-11] MEDS ORDERED: NITROGLYCERIN SL 0.4 MG/TAB TAB SL PRN (19:53)
[2025-08-11] MEDS ORDERED: ALUMINUM/MAGNESIUM SUSP 30 ML UDC PO PRN (19:53)
[2025-08-11] MEDS ORDERED: ACETAMINOPHEN 325 MG TAB PO PRN (19:53)
[2025-08-11] MEDS ORDERED: PHARMACIST DISCHARGE MED REC CONSULT PRN (19:53)
[2025-08-11] MEDS ORDERED: MELATONIN 3 MG TAB PO PRN (19:53)
[2025-08-11] MEDS ORDERED: MAGNESIUM HYDROXIDE SUSP 30 ML UDC PO PRN (19:53)
[2025-08-11] MEDS: ASPIRIN 81 MG ECTAB PO SCH (20:37)
[2025-08-11] MEDS: METOPROLOL SUCC 50MG EXT REL TAB PO SCH (20:37)
[2025-08-11] MEDS: SODIUM CHLORIDE 0.9% 1,000 ML IV SCH (20:39)
[2025-08-11] MEDS: POLYETHYLENE (MIRALAX) 17 GM PACK PO SCH (20:40)
[2025-08-11] MEDS: DOCUSATE SODIUM 100 MG CAP PO SCH (20:44)
[2025-08-11] MEDS: HEPARIN SOD 5,000 UNIT/0.5 ML VIAL SQ SCH (20:44)
[2025-08-12 06:47] LABS: Hematocrit (blood only) 28.4 % (42.0-52.0); Hemoglobin 8.7 g/dl (14.0-18.0); Mean Corpuscular Hemoglobin 33.1 pg (25.0-34.0); Mean Corpuscular Volume 108.0 fL (80.0-100.0); Platelet Count 37 K/uL (130-400); RDW Standard Deviation 86.1 fL (36.4-46.3); Red Blood Count 2.63 M/uL (4.70-6.10); White Blood Count 11.95 K/ul (4.8-10.8)
[2025-08-12 06:55] LABS: Alanine Aminotransferase 17.0 U/L (7-52); Albumin Globulin Ratio 1.3 (0.9-2); Albumin Level 3.5 gm/dl (3.4-5.0); Alkaline Phosphatase 56.0 U/L (34-104); Anion Gap 8.0 (3-11); Bilirubin,Total 0.8 mg/dl (0.2-1.0); Blood Urea Nitrogen 12.0 mg/dl (6-23); Calcium 8.6 mg/dl (8.6-10.3); Carbon Dioxide 25.0 mmol/L (21-32); Chloride 100.0 mmol/L (98-107); Cholesterol 178.0 mg/dl (0-200); Creatinine Clr Calc Pharmacy 102.9 ml/min; Globulin 2.6 gm/dl (2.5-4.0); Glucose 94.0 mg/dl (70-99(Fasting)); HDL Cholesterol 28.0 mg/dl; Magnesium 2.2 mg/dl (1.7-2.4); Potassium 4.2 mmol/L (3.5-5.1); Sodium 133.0 mmol/L (136-145); Total Protein 6.1 gm/dl (6.0-8.3); Triglycerides 186.0 mg/dl (0-150)
[2025-08-12 07:10] LABS: Thyroid Stimulating Hormone 0.614 uIu/ml (0.300-4.500)
[2025-08-12 07:20] LABS: Folate (Folic Acid),Ser orPlas 18.71 ng/ml (>5.38)
[2025-08-12 07:21] LABS: Vitamin B12 1411.0 pg/ml (180-914)
[2025-08-12 07:32] LABS: Hemoglobin A1C 4.4 % (4.5-5.6)
[2025-08-12 07:36] VITALS: RESP 18
[2025-08-12 07:37] LABS: Anisocytosis Present; Macrocytosis Present; Polychromasia 3+; Tear Drop Cells 1+
[2025-08-12 07:41] LABS: ALC (manual) 2.39 K/uL (1.2-3.4); ANC (manual) 6.93 K/uL (1.4-6.5); Blast # (manual) 0.24 K/uL (0-0); Other Cell Type % 1 %
--- NOTE | 2025-08-12 08:10 | Oncology Consultation ---
Date of Consultation August 12, 2025 Assessment & Plan (1) Myelofibrosis: Plan -No hematology recommendations at this time. Continue with Vonjo. History of Present Illness Reason for Consultation: Myelofibrosis Attending Physician: Feliciano Carbajal MD History of Present Illness 70-year-old gentleman with multiple comorbidities including myelofibrosis for which he is currently on Vonjo. He presented with left wrist drop thought to be secondary to left radial nerve palsy. Hematology consulted for history of myelofibrosis. Allergies Allergy/AdvReac Type Severity Reaction Status Date / Time escitalopram [From Lexapro] AdvReac Intermediate BECAME Verified 06/25/25 08:51 MORE DEPRESSED Home Medications Medication Instructions Recorded Confirmed Type nitroglycerin 0.4 mg sublingual 0.4 mg sublingual UD PRN Chest 06/26/24 08/11/25 Rx tablet (Nitrostat) Pain #25 tabs metoprolol succinate 100 mg 100 mg PO BID #180 tabs 01/14/25 08/11/25 Rx tablet,extended release 24 hr amlodipine 10 mg-benazepril 40 mg 1 cap PO QAM #90 caps 03/24/25 08/11/25 Rx capsule baclofen 10 mg tablet 10 mg PO TID PRN MUSCLE SPASMS 06/02/25 08/11/25 History docusate sodium 100 mg capsule 100 mg PO BID #60 caps 06/04/25 08/11/25 Rx polyethylene glycol 3350 17 gram 17 g PO BID #0 ea 06/04/25 08/11/25 Rx oral powder packet (Miralax) omeprazole 20 mg capsule,delayed 20 mg PO DAILY 08/11/25 08/11/25 History release oxycodone 10 mg tablet 10 mg PO .EVERY 4-6 HOURS PRN Pain 08/11/25 08/11/25 History oxycodone 15 mg tablet,crush 15 mg PO Q12 08/11/25 08/11/25 History resistant,extended release 12 hr (OxyContin) pacritinib 100 mg capsule (Vonjo) 200 mg PO BID 08/11/25 08/12/25 History prochlorperazine maleate 10 mg 10 mg PO Q6 PRN Nausea 08/11/25 08/11/25 History tablet clopidogrel 75 mg tablet (Plavix) 75 mg PO DAILY #30 tabs 08/12/25 Rx Patient History Medical History Hyperlipidemia GERD (gastroesophageal reflux disease) Apneic episode Acute heart failure with mildly reduced ejection fraction (HFmrEF, 41-49%) Alcohol use disorder CAD (coronary artery disease) (1998) Cardiac Catheterization revealed 100% RCA occlusion with well developed collaterals with stenosis of obtuse marginal and left circumflex with stent placement. Rectal bleeding Bailey esophagus Hypertension Surgical History History of cataract surgery LEFT History of colonoscopy History of esophagogastroduodenoscopy (EGD) History of AAA (abdominal aortic aneurysm) repair History of surgery LEFT HAND REATTACHED AFTER TRAUMA (30+YEARS AGO). PT HAS SOME NUMBNESS AND TINGLING BUT HAS FULL FUNCTION. History of surgery REPAIR OF DEVIATED SEPTUM History of herniorrhaphy MULTIPLE, INCLUDING UMBILICAL History of cardiac cath ANGIOPLASTY X2, STENT PLACEMENT (20 YEARS AGO) Family History Father Diabetes Myocardial infarction Hypertension Mother Diabetes Hypertension Gall bladder disease Other No family history of adverse response to anesthesia Denies family history of Ovarian cancer Prostate cancer Breast cancer Lung cancer Colorectal cancer Social History (Updated 08/12/25 @ 17:13 by Magdiel Goyal MD) Smoking Status: Never smoker Tobacco Type: Cigarettes Age Started Using Tobacco: 13; Age Quit Using Tobacco: 46; packs per day: 1; Second Hand Exposure: No; Do You Dip or Chew Tobacco: No; Hx Alcohol Use: No Hx Substance Use: No Preferred Language: Belgian Communication Ability: Effective Visual Impairment: Limited Hearing Ability: Normal Rubber Engraver Required: No Beliefs That Will Affect Care: None marital status: Current Living Situation: Family current occupational status: retired 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) How many Children do You have Comment: 1 adult step son Feels Safe at Home: Yes Childhood Exposure to Second-Hand Smoke: No Diet: other Diet Comment: Mediterranean diet caffeine: Yes during the past year weight has: decreased > 10 lbs Dental Care, Regularly: No Physical Activity Frequency: Does not Exercise Seatbelt Use: always Sunscreen Use: No Do you think of yourself as: straight/heterosexual Gender Identity: Male Assistive Devices: None Results & Data Vital Signs (Past 12 Hours) Vital Signs Temp Pulse Pulse Resp BP Pulse Ox O2 Del Method 08/12/25 07:35 36.4 C L 66 18 149/73 H 100 Room Air 08/12/25 02:48 36.6 C 71 21 151/71 H 97 Room Air 08/12/25 01:11 36.5 C 66 18 133/67 96 Room Air 08/11/25 23:55 67 08/11/25 23:50 36.2 C L 70 12 145/66 H 97 Room Air 08/11/25 23:11 95 08/11/25 23:11 66 08/11/25 23:11 36.8 C 70 18 115/58 L 96 Room Air
--- NOTE | 2025-08-12 08:56 | Neurology Consultation ---
Date of Consultation August 12, 2025 History of Present Illness Attending Physician: Feliciano Carbajal MD History of Present Illness S: pt with left hand isolated hand weakness/numbness. CTA findings as noted. Admission HPI: This is a 70-year-old male presents emergency department due to evaluation for left upper extremity weakness. On exam patient is weakness seems most notable distally to the left upper extremity involving the wrist and hand. No other additional findings consistent with stroke. Initial NIH stroke score 2. A stroke alert was called given he was within the window for possible TNK and with unclear other etiology to explain his symptoms. He was otherwise afebrile and hemodynamically stable. Labs drawn and sent, IV established, EKG and chest were performed at bedside and interpreted by me. The patient was sent urgently for CT/CTA and was monitored on telemetry. I did speak with the on- call [facility] neurologist who did perform an evaluation at bedside via the stroke cart. He initially recommended after evaluating the patient that I have an in- house neurologist, and evaluate him for if that is not possible to seek a stat MRI of the patient's brain to further evaluate for stroke. We do not have any in-house neurologist available, I did speak on the phone with Dr. Dominguez. Stat MRI was also not available as patient does have a device and this would need to be scheduled tomorrow and conjunction with a [employer] rep being present. We did call and update the neurologist at [facility] again. He called back and spoke with the patient and his again at bedside which I was present for and did offer him TNK after discussing his evaluation and unclear diagnosis as well as risk versus benefits. Patient declined which I was present for and did offer him TNK after discussing his evaluation and unclear diagnosis as well as risk versus benefits. Patient declined TNK. He did verbalize understanding that was a stroke that was not identified until an MRI tomorrow, he may be left with permanent deficits. Patient remained hemodynamically stable otherwise. We did discuss other vascular findings and they state they have an upcoming vascular study on August 20. Case discussed with the hospitalist team for further evaluation and management. Allergies Allergy/AdvReac Type Severity Reaction Status Date / Time escitalopram [From Lexapro] AdvReac Intermediate BECAME Verified 06/25/25 08:51 MORE DEPRESSED Home Medications Medication Instructions Recorded Confirmed Type nitroglycerin 0.4 mg sublingual 0.4 mg sublingual UD PRN Chest 06/26/24 08/11/25 Rx tablet (Nitrostat) Pain #25 tabs aspirin 81 mg tablet,delayed 81 mg PO HS 01/03/25 08/11/25 History release metoprolol succinate 100 mg 100 mg PO BID #180 tabs 01/14/25 08/11/25 Rx tablet,extended release 24 hr amlodipine 10 mg-benazepril 40 mg 1 cap PO QAM #90 caps 03/24/25 08/11/25 Rx capsule ruxolitinib 5 mg tablet (Jakafi) 5 mg PO BID 05/30/25 08/11/25 History baclofen 10 mg tablet 10 mg PO TID PRN MUSCLE SPASMS 06/02/25 08/11/25 History docusate sodium 100 mg capsule 100 mg PO BID #60 caps 06/04/25 08/11/25 Rx polyethylene glycol 3350 17 gram 17 g PO BID #0 ea 06/04/25 08/11/25 Rx oral powder packet (Miralax) omeprazole 20 mg capsule,delayed 20 mg PO DAILY 08/11/25 08/11/25 History release oxycodone 10 mg tablet 10 mg PO .EVERY 4-6 HOURS PRN Pain 08/11/25 08/11/25 History oxycodone 15 mg tablet,crush 15 mg PO Q12 08/11/25 08/11/25 History resistant,extended release 12 hr (OxyContin) pacritinib 100 mg capsule (Vonjo) 100 mg PO UD 08/11/25 08/11/25 History prochlorperazine maleate 10 mg 10 mg PO Q6 PRN Nausea 08/11/25 08/11/25 History tablet Patient History Medical History (Updated 08/11/25 @ 16:36 by Mariajose Ellis DO) Hyperlipidemia GERD (gastroesophageal reflux disease) Apneic episode Acute heart failure with mildly reduced ejection fraction (HFmrEF, 41-49%) Alcohol use disorder CAD (coronary artery disease) (1998) Cardiac Catheterization revealed 100% RCA occlusion with well developed collaterals with stenosis of obtuse marginal and left circumflex with stent placement. Rectal bleeding Bailey esophagus Hypertension Surgical History History of cataract surgery LEFT History of colonoscopy History of esophagogastroduodenoscopy (EGD) History of AAA (abdominal aortic aneurysm) repair History of surgery LEFT HAND REATTACHED AFTER TRAUMA (30+YEARS AGO). PT HAS SOME NUMBNESS AND TINGLING BUT HAS FULL FUNCTION. History of surgery REPAIR OF DEVIATED SEPTUM History of herniorrhaphy MULTIPLE, INCLUDING UMBILICAL History of cardiac cath ANGIOPLASTY X2, STENT PLACEMENT (20 YEARS AGO) Family History Father Diabetes Myocardial infarction Hypertension Mother Diabetes Hypertension Gall bladder disease Other No family history of adverse response to anesthesia Denies family history of Ovarian cancer Prostate cancer Breast cancer Lung cancer Colorectal cancer Social History Smoking Status: Never smoker Tobacco Type: Cigarettes Age Started Using Tobacco: 16; Age Quit Using Tobacco: 46; packs per day: 1; Cigarettes Per Day: quit 15 years; Second Hand Exposure: No; Do You Dip or Chew Tobacco: No; Hx Alcohol Use: No Hx Substance Use: No Preferred Language: Maltese Communication Ability: Effective Visual Impairment: Limited Hearing Ability: Normal Top Lift And Automatic Window Repairer Required: No Beliefs That Will Affect Care: None marital status: Current Living Situation: Family current occupational status: retired How many Children do You have Comment: 1 adult step son Feels Safe at Home: Yes Childhood Exposure to Second-Hand Smoke: No Diet: other Diet Comment: Mediterranean diet caffeine: Yes during the past year weight has: decreased > 10 lbs Dental Care, Regularly: No Physical Activity Frequency: Does not Exercise Seatbelt Use: always Sunscreen Use: No Do you think of yourself as: straight/heterosexual Gender Identity: Male Assistive Devices: Cane and Walker Review of Systems Review of Systems: All systems reviewed & are unremarkable except as noted in Subjective Constitutional: as per Subjective / HPI Eyes: as per Subjective / HPI Ear, Nose, Mouth, Throat: as per Subjective / HPI Respiratory: as per Subjective / HPI Cardiovascular: as per Subjective / HPI Gastrointestinal: as per Subjective / HPI Musculoskeletal: as per Subjective / HPI Integumentary: as per Subjective / HPI Neurologic: as per Subjective / HPI Psychiatric: as per Subjective / HPI Endocrine: as per Subjective / HPI Hematologic / Lymphatic: as per Subjective / HPI Allergy / Immunological: as per Subjective / HPI Exam (Neuro) Physical Exam: HEENT: normocephalic Neuro: Mental: AOx4, fluent speech, normal comprehension, no apraxia, no L/R confusion, no neglect CN: PERRL, Full EOM, symmetric face, midline T/U/P, 5/5 SCM/traps. Motor: No abnormal movements, normal tone and bulk, 5/5 t/o bilaterally Sens: intact to touch b/l grossly Coord: intact FNT b/l DTR: 2+ sym b/l Gait: intact grossly Impression: 70 male with acute left hand weakness in setting of hyponatremia, leukemia and weight loss. Overall picture not consistent with stroke. Recommendations: 1. Standard stroke work up incidental finding of rt cavernous aneurysm, outpt routine neurosurgery referral is reasonable. 2. antiplatelet therapy: * DAPT (dual antiplatelet therapy): start for pts with ABCD2 score 4 or higher. Initial loading dose with ASA 325mg and Plavix 300mg (if pt has not been started), then ASA 81mg daily and Plavix 75mg daily. Continue DAPT for 21 days if found small vessel disease only or continue for 90 days if found to have intracranial large artery atherosclerosis. After that, can continue single antiplatelet therapy (either ASA or Plavix). 3. Images: MRI brain (stroke protocol), TTE with bubble, CTA head/neck (if not done it and no contraindication from doing it). 4. Permissive Hypertension for next 24-4 8 hrs. Keep SBP goal range less than 220. Avoid hypotension. Do not stop beta-robert if on it. 5. If noted for large intracranial vesse l stenosis, slow reduction of BP and allowing permissive HTN next 5-7 days. 6. Long-term SBP goal less than 130. 7. Plenty of hydration including IV flui d if possible (use isotonic solution) next 1-2 days. Avoid hypovolemia and hypotension. 8. Initiate DVT prevention therapy. 9. Avoid hypoglycemia, serum glucose goa l during hospitalization: 140-180. 10. Long-term HgA1c goal less than 7. 11. Start statin if not on it and no abs olute contraindication, long-term LDL goal less than 70. 12. Head of bed up 30 degrees if possibl e. 13. Stroke education by nursing and appr opriate staff. 14. Telemetry monitoring. Consider oil heaterman cardiac monitoring, i.e. MCOT (mobile cardiac outpatient telemetry) or ICM (insertable registered nurse cardiac telemetry, e.g. LINQ), if never had prison cardiac monitoring done previously. And if found t o have atrial flutter or fibrillation, should consider anticoagulation therapy if no contraindication. 15. Fall precaution and aspiration preca ution. 16. Consult physical and occupational th erapy and speech path evaluation. 17. consider nutritional consult Chart reviewed I have spent more than 50% educating patient about potential diagnosis and neurological evaluation and coordinating care with patient's treatment team. Total time spent (including chart review and coordination of care): 60 min (this includes chart review). Results & Data Vital Signs (Past 12 Hours) Vital Signs Temp Pulse Pulse Resp BP Pulse Ox O2 Del Method 08/12/25 07:35 36.4 C L 66 18 149/73 H 100 Room Air 08/12/25 02:48 36.6 C 71 21 151/71 H 97 Room Air 08/12/25 01:11 36.5 C 66 18 133/67 96 Room Air 08/11/25 23:55 67 08/11/25 23:50 36.2 C L 70 12 145/66 H 97 Room Air 08/11/25 23:11 95 08/11/25 23:11 66 08/11/25 23:11 36.8 C 70 18 115/58 L 96 Room Air PG Care Time/CCT Total # of Minutes Spent Total Time Spent with Patient: Total time spent is greater than 50% in coordination of care (as documented) at patient's floor/unit and/or counseling patient: Coding Level of Care Code None
[2025-08-12] MEDS: ENALAPRIL MALEATE 10 MG TAB PO SCH (08:57)
[2025-08-12] MEDS: Nursing to Pharmacy Communication SCH (09:50)
[2025-08-12] MEDS: [UNRECOGNIZED DRUG - OTHER] PO SCH (10:17)
[2025-08-12] MEDS: [UNRECOGNIZED DRUG - OTHER] PO SCH (10:19)
[2025-08-12 11:14] VITALS: TEMP 97.7; O2SAT 98
--- NOTE | 2025-08-12 14:17 | Palliative Care Consultation ---
Date of Consultation August 12, 2025 Assessment & Plan (1) Cancer related pain: (2) Palliative care by specialist: Plan Continue OxyContin 15mg Q12h and OxyIR 7.5 to 15mg PO Q4h prn for cancer pain I confirmed his Vascular Surgery appt scheduled per IK review: "DV 08/12 scheduled in [place] on 08/20/25 at 8:45am with Darline Topete PA-C" Awaiting GI appt - cancer nursing team working on scheduling RTC with me 2-3 weeks Thank you for allowing us to participate in the ongoing care of this patient. Please page with any additional concerns. 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 Jakafi stopped, Kae started a week ago Intermittent diarrhea: taking Imodium Splenomegaly is improving. Allergies Allergy/AdvReac Type Severity Reaction Status Date / Time escitalopram [From Lexapro] AdvReac Intermediate BECAME Verified 06/25/25 08:51 MORE DEPRESSED Home Medications Medication Instructions Recorded Confirmed Type nitroglycerin 0.4 mg sublingual 0.4 mg sublingual UD PRN Chest 06/26/24 08/11/25 Rx tablet (Nitrostat) Pain #25 tabs metoprolol succinate 100 mg 100 mg PO BID #180 tabs 01/14/25 08/11/25 Rx tablet,extended release 24 hr amlodipine 10 mg-benazepril 40 mg 1 cap PO QAM #90 caps 03/24/25 08/11/25 Rx capsule baclofen 10 mg tablet 10 mg PO TID PRN MUSCLE SPASMS 06/02/25 08/11/25 History docusate sodium 100 mg capsule 100 mg PO BID #60 caps 06/04/25 08/11/25 Rx polyethylene glycol 3350 17 gram 17 g PO BID #0 ea 06/04/25 08/11/25 Rx oral powder packet (Miralax) omeprazole 20 mg capsule,delayed 20 mg PO DAILY 08/11/25 08/11/25 History release oxycodone 10 mg tablet 10 mg PO .EVERY 4-6 HOURS PRN Pain 08/11/25 08/11/25 History oxycodone 15 mg tablet,crush 15 mg PO Q12 08/11/25 08/11/25 History resistant,extended release 12 hr (OxyContin) pacritinib 100 mg capsule (Vonjo) 200 mg PO BID 08/11/25 08/12/25 History prochlorperazine maleate 10 mg 10 mg PO Q6 PRN Nausea 08/11/25 08/11/25 History tablet clopidogrel 75 mg tablet (Plavix) 75 mg PO DAILY #30 tabs 08/12/25 Rx Patient History Medical History Hyperlipidemia GERD (gastroesophageal reflux disease) Apneic episode Acute heart failure with mildly reduced ejection fraction (HFmrEF, 41-49%) Alcohol use disorder CAD (coronary artery disease) (1998) Cardiac Catheterization revealed 100% RCA occlusion with well developed collaterals with stenosis of obtuse marginal and left circumflex with stent placement. Rectal bleeding Bailey esophagus Hypertension Surgical History History of cataract surgery LEFT History of colonoscopy History of esophagogastroduodenoscopy (EGD) History of AAA (abdominal aortic aneurysm) repair History of surgery LEFT HAND REATTACHED AFTER TRAUMA (30+YEARS AGO). PT HAS SOME NUMBNESS AND TINGLING BUT HAS FULL FUNCTION. History of surgery REPAIR OF DEVIATED SEPTUM History of herniorrhaphy MULTIPLE, INCLUDING UMBILICAL History of cardiac cath ANGIOPLASTY X2, STENT PLACEMENT (20 YEARS AGO) Family History Father Diabetes Myocardial infarction Hypertension Mother Diabetes Hypertension Gall bladder disease Other No family history of adverse response to anesthesia Denies family history of Ovarian cancer Prostate cancer Breast cancer Lung cancer Colorectal cancer Social History (Updated 08/12/25 @ 17:13 by Magdiel Goyal MD) Smoking Status: Never smoker Tobacco Type: Cigarettes Age Started Using Tobacco: 13; Age Quit Using Tobacco: 46; packs per day: 1; Second Hand Exposure: No; Do You Dip or Chew Tobacco: No; Hx Alcohol Use: No Hx Substance Use: No Preferred Language: Polish Communication Ability: Effective Visual Impairment: Limited Hearing Ability: Normal Quality Assurance Monitor Body Required: No Beliefs That Will Affect Care: None marital status: Current Living Situation: Family current occupational status: retired 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) How many Children do You have Comment: 1 adult step son Feels Safe at Home: Yes Childhood Exposure to Second-Hand Smoke: No Diet: other Diet Comment: Mediterranean diet caffeine: Yes during the past year weight has: decreased > 10 lbs Dental Care, Regularly: No Physical Activity Frequency: Does not Exercise Seatbelt Use: always Sunscreen Use: No Do you think of yourself as: straight/heterosexual Gender Identity: Male Assistive Devices: None Review of Systems Review of Systems: All systems reviewed & are unremarkable except as noted in Subjective Physical Exam Physical Exam: Resting comfortably in chair no acute distress agitated at time, sometimes forgetful normal resp effort skin with scatt ecchymoses AAOx3 LUE weakness, mildred wrist to hand, palmar flexion intact, 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, unable to perform resistance maneuvers Results & Data Vital Signs (Past 12 Hours) Vital Signs Temp Pulse Resp BP Pulse Ox O2 Del Method 08/12/25 11:13 36.5 C 70 18 135/69 98 Room Air 08/12/25 07:35 36.4 C L 66 18 149/73 H 100 Room Air 08/12/25 02:48 36.6 C 71 21 151/71 H 97 Room Air Laboratory Results 08/12/25 08/11/25 08/11/25 Range/Units 06:06 23:11 19:12 WBC 11.95 H (4.8-10.8) K/ul RBC 2.63 L (4.70-6.10) M/uL Hgb 8.7 L (14.0-18.0) g/dl Hct 28.4 L (42.0-52.0) % MCV 108.0 H (80.0-100.0) fL MCH 33.1 (25.0-34.0) pg MCHC 30.6 L (32.0-36.0) g/dL RDW Std Deviation 86.1 H (36.4-46.3) fL RDW Coeff of Dominique 21.8 H (11.5-14.5) % Plt Count 37 L (130-400) K/uL Absolute Nucleated RBC 0.26 H (0.00-0.12) K/uL Nucleated RBC % (auto) 2.2 % Neutrophils % (Manual) 58 % Lymphocytes % (Manual) 20 % Monocytes % (Manual) 2 % Eosinophils % (Manual) 1 % Basophils % (Manual) 3 % Metamyelocytes % (Man) 7 % Myelocytes % (Man) 3 % Promyelocytes % (Man) 3 % Blast Cells % (Manual) 2 % Other Cells % 1 % Neutrophils # (Manual) 6.93 H (1.40-6.50) K/uL Total Absolute Neuts 6.93 H (1.4-6.5) K/uL Lymphocytes # (Manual) 2.39 (1.2-3.4) K/uL Total Abs Lymphocytes 2.39 (1.2-3.4) K/uL Monocytes # (Manual) 0.24 (0.11-0.59) K/uL Eosinophils # (Manual) 0.12 (0-0.50) K/uL Basophils # (Manual) 0.36 H (0-0.2) K/uL Metamyelocytes # (Man) 0.84 H (0-0) K/uL Myelocytes # (Manual) 0.36 H (0-0) K/uL Promyelocytes # (Man) 0.36 H (0-0) K/uL Blast Cells # (Man) 0.24 H (0-0) K/uL Other Cells # 0.12 H (0-0) K/uL Polychromasia 3+ Anisocytosis Present Macrocytosis Present Target Cells Tear Drop Cells 1+ Stomatocytes ESR 18 (0-20) mm/hr PT (9.0-12.0) Seconds INR (0.9-1.1) APTT (21-31) Seconds PTT Ratio Sodium 133 L (136-145) mmol/L Potassium 4.2 (3.5-5.1) mmol/L Chloride 100 (98-107) mmol/L Carbon Dioxide 25 (21-32) mmol/L Anion Gap 8 (3-11) BUN 12 (6-23) mg/dl Creatinine 0.68 (0.6-1.4) mg/dl Est Cr Clr Drug Dosing 102.9 ml/min eGFR 99.38 BUN/Creatinine Ratio 17.6 (10-20) Glucose 94 (70-99(Fasting)) mg/dl Estimat Average Glucose 80 mg/dl Hemoglobin A1c 4.4 L (4.5-5.6) % Calcium 8.6 (8.6-10.3) mg/dl Magnesium 2.2 (1.7-2.4) mg/dl Total Bilirubin 0.8 (0.2-1.0) mg/dl AST 18 (13-39) U/L ALT 17 (7-52) U/L Alkaline Phosphatase 56 (34-104) U/L Troponin I High Sens (0-20) pg/ml C-Reactive Protein 6.72 H (0-0.5) mg/dl Total Protein 6.1 (6.0-8.3) gm/dl Albumin 3.5 (3.4-5.0) gm/dl Globulin 2.6 (2.5-4.0) gm/dl Albumin/Globulin Ratio 1.3 (0.9-2) Triglycerides 186 H (0-150) mg/dl Cholesterol 178 (0-200) mg/dl LDL Cholesterol, Calc 113 mg/dl VLDL Cholesterol, Calc 37 H (0-30) mg/dl HDL Cholesterol 28 mg/dl Cholesterol/HDL Ratio 6.4 H (0-5) Vitamin B12 1411 H (180-914) pg/ml Vit D 1,25-Dihyd Total Pending 1,25 Dihydroxy Vit D2 Pending 1,25 Dihydroxy Vit D3 Pending Folate 18.71 (>5.38) ng/ml Procalcitonin 0.13 (0-0.5) ng/ml TSH 0.614 (0.300-4.500) uIu/ml Nasal Screen MRSA (PCR) Negative (Negative) Anaplasma Smear See Comment A. phagocytophilum DNA Pending Babesia Smear See Comment Babesia microti DNA PCR Pending Lyme Disease Screen Negative (Negative) Ehrlichia DNA (PCR) Pending Q Fever Phase I IgG Ab Pending Q Fever Phase I IgM Ab Pending Q Fever Phase II IgG Ab Pending Q Fever Phase II IgM Ab Pending Rickettsia IgG Ab Pending Rickettsia IgM Ab Pending Typhus Fever IgG Ab Pending Typhus Fever IgM Ab Pending Blood Type Antibody Screen 08/11/25 Range/Units 15:24 WBC 15.37 H (4.8-10.8) K/ul RBC 3.07 L (4.70-6.10) M/uL Hgb 9.8 L (14.0-18.0) g/dl Hct 33.3 L (42.0-52.0) % MCV 108.5 H (80.0-100.0) fL MCH 31.9 (25.0-34.0) pg MCHC 29.4 L (32.0-36.0) g/dL RDW Std Deviation 89.5 H (36.4-46.3) fL RDW Coeff of Dominique 22.3 H (11.5-14.5) % Plt Count 43 L (130-400) K/uL Absolute Nucleated RBC 0.51 H (0.00-0.12) K/uL Nucleated RBC % (auto) 3.3 % Neutrophils % (Manual) 54 % Lymphocytes % (Manual) 23 % Monocytes % (Manual) 4 % Eosinophils % (Manual) 1 % Basophils % (Manual) 4 % Metamyelocytes % (Man) 5 % Myelocytes % (Man) 3 % Promyelocytes % (Man) 2 % Blast Cells % (Manual) 4 % Other Cells % % Neutrophils # (Manual) 8.30 H (1.40-6.50) K/uL Total Absolute Neuts 8.30 H (1.4-6.5) K/uL Lymphocytes # (Manual) 3.54 H (1.2-3.4) K/uL Total Abs Lymphocytes 3.54 H (1.2-3.4) K/uL Monocytes # (Manual) 0.61 H (0.11-0.59) K/uL Eosinophils # (Manual) 0.15 (0-0.50) K/uL Basophils # (Manual) 0.61 H (0-0.2) K/uL Metamyelocytes # (Man) 0.77 H (0-0) K/uL Myelocytes # (Manual) 0.46 H (0-0) K/uL Promyelocytes # (Man) 0.31 H (0-0) K/uL Blast Cells # (Man) 0.61 H (0-0) K/uL Other Cells # (0-0) K/uL Polychromasia Anisocytosis Present Macrocytosis Target Cells 1+ Tear Drop Cells 1+ Stomatocytes 2+ ESR (0-20) mm/hr PT 11.7 (9.0-12.0) Seconds INR 1.1 (0.9-1.1) APTT 28 (21-31) Seconds PTT Ratio 1.0 Sodium 133 L (136-145) mmol/L Potassium 4.2 (3.5-5.1) mmol/L Chloride 96 L (98-107) mmol/L Carbon Dioxide 28 (21-32) mmol/L Anion Gap 9 (3-11) BUN 13 (6-23) mg/dl Creatinine 0.79 (0.6-1.4) mg/dl Est Cr Clr Drug Dosing 88.6 ml/min eGFR 94.98 BUN/Creatinine Ratio 16.5 (10-20) Glucose 128 H (70-99(Fasting)) mg/dl Estimat Average Glucose mg/dl Hemoglobin A1c (4.5-5.6) % Calcium 9.3 (8.6-10.3) mg/dl Magnesium 2.2 (1.7-2.4) mg/dl Total Bilirubin 0.9 (0.2-1.0) mg/dl AST 20 (13-39) U/L ALT 23 (7-52) U/L Alkaline Phosphatase 67 (34-104) U/L Troponin I High Sens 17.9 (0-20) pg/ml C-Reactive Protein (0-0.5) mg/dl Total Protein 7.1 (6.0-8.3) gm/dl Albumin 3.8 (3.4-5.0) gm/dl Globulin 3.3 (2.5-4.0) gm/dl Albumin/Globulin Ratio 1.2 (0.9-2) Triglycerides (0-150) mg/dl Cholesterol (0-200) mg/dl LDL Cholesterol, Calc mg/dl VLDL Cholesterol, Calc (0-30) mg/dl HDL Cholesterol mg/dl Cholesterol/HDL Ratio (0-5) Vitamin B12 (180-914) pg/ml Vit D 1,25-Dihyd Total 1,25 Dihydroxy Vit D2 1,25 Dihydroxy Vit D3 Folate (>5.38) ng/ml Procalcitonin (0-0.5) ng/ml TSH (0.300-4.500) uIu/ml Nasal Screen MRSA (PCR) (Negative) Anaplasma Smear A. phagocytophilum DNA Babesia Smear Babesia microti DNA PCR Lyme Disease Screen (Negative) Ehrlichia DNA (PCR) Q Fever Phase I IgG Ab Q Fever Phase I IgM Ab Q Fever Phase II IgG Ab Q Fever Phase II IgM Ab Rickettsia IgG Ab Rickettsia IgM Ab Typhus Fever IgG Ab Typhus Fever IgM Ab Blood Type A Positive Antibody Screen NEGATIVE Diagnostic Findings Chest X-Ray 08/11/25 15:21 Technique: A frontal view of the chest was obtained Findings: There are no confluent pulmonary infiltrates. The heart size is within normal limits. No pleural effusion or pneumothorax is seen. There is no definite pulmonary nodule. No fracture is noted. There is a left chest wall pacemaker device Impression: No active disease Electronically signed by Wilmer Pemberton 08-11-2025 5:[address] 08/11/25 15:21 CT head/brain wo con CLINICAL HISTORY: neuro deficit, acute stroke suspected. TECHNIQUE: Multiple axial CT images of the head were obtained without contrast. A dose lowering technique was utilized adhering to the principles of ALARA. COMPARISON: None FINDINGS: No intracranial hemorrhage seen. No mass effect, midline shift, or hydrocephalus. There are mild chronic small vessel ischemic changes. No skull fracture seen. Visualized paranasal sinuses and mastoid air cells are clear. IMPRESSION: No acute findings. ACT 112: Negative or not required by law. The above report was generated using voice recognition software. It may contain grammatical, syntax or spelling errors. Electronically signed by: Steve Martinez M.D. 08/11/2025 3:42 PM Head CTA 08/11/25 15:21 CTA ANGIOGRAPHY OF THE HEAD CLINICAL HISTORY: neuro deficit, acute stroke suspected COMPARISON STUDY: No previous studies for comparison. TECHNIQUE: Helical axial images of the head were obtained following uneventful intravenous administration of 119 cc of Optiray. Sagittal and coronal reconstructions were viewed as well as maximal intensity projections on an independent 3-D workstation. Automated exposure control was utilized for the study. A dose lowering technique was utilized adhering to the principles of ALARA. FINDINGS: Please note that the head CT will be reported separately. No acute intracranial hemorrhage, midline shift or mass effect is present. Ventricular system is unremarkable. White matter hypodensity suggests small vessel disease. Note is made of a large saccular aneurysm of the right cavernous carotid which measures 2 x 1.6 cm. No additional saccular intracranial aneurysms are present. There is extensive atherosclerotic plaque within the bilateral cavernous carotids. There is mild fusiform dilatation of the basilar artery which measures 8 mm in caliber. persistence of the right posterior cerebral artery is incidentally noted. The right vertebral artery is dominant. IMPRESSION: 1. 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 Nonemergent Neurosurgical consultation is recommended. No additional saccular aneurysms. 2. No large vessel occlusion. 3. 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 4. Extensive atherosclerotic plaque within bilateral cavernous carotids. ACT 112: Positive. There are findings on this exam that require communication between the performing entity and the patient following Patient Test Result Information Act ([place] Act 112) guidelines. Electronically signed by: Kam Barry M.D. 08/11/2025 3:55 PM Neck CTA 08/11/25 15:21 CT angio neck with con CLINICAL HISTORY: 70 years-old Male with neuro deficit, acute stroke suspected. Acute stroke like symptoms COMPARISON STUDY: Head CT of same day TECHNIQUE: Following the IV administration of 119 mL of Optiray, CT angiogram of the neck was performed from the aortic arch to the skull base. Images are reviewed in the axial, sagittal, and coronal planes. 3-D MIPS images are created and assessed. IV contrast was administered without complication. All measurements were calculated based on NASCET criteria. A dose lowering technique was utilized adhering to the principles of ALARA. CT DOSE: 1150.42 mGy.cm FINDINGS: Left subclavian pacer. Moderate to extensive atherosclerosis of the thoracic aortic arch causes high-grade stenosis at the origin of the left subclavian artery. Atherosclerosis of the left carotid bulb in proximal left ICA causes narrowing of up to approximately 50%. Prominent calcified plaque at the right carotid bulb and proximal right ICA causes high-grade stenosis of approximately 80-90%. Dominant right vertebral artery. The imaged vertebrae arteries appear patent bilaterally. There is at least mild stenosis at the left vertebral artery origin. Moderate emphysema. No pneumothorax. Unremarkable soft tissues. Degenerative changes of the spine. IMPRESSION: 1. Advanced atherosclerosis with high grade stenosis at the origin of the right ICA. 2. High-grade stenosis at the origin of the left subclavian artery. Findings should be correlated clinically to exclude underlying subclavian steal syndrome. 3. Patent vertebral arteries. 4. Please refer to the same day CTA of the head for additional findings. ACT 112: Negative or not required by law. The above report was generated using voice recognition software. It may contain grammatical, syntax or spelling errors. Electronically signed by: Ryan Peacock M.D. 08/11/2025 3:50 PM PG Care Time/CCT Total # of Minutes Spent Total Time Spent: 75 Total Time Spent with Patient: Total time spent is greater than 50% in coordination of care (as documented) at patient's floor/unit and/or counseling patient: [place] [address] IN/OBS CONSULT LVL 5,80M Patient Type New History Comprehensive Exam Comprehensive Medical Decision Making High Complexity Diagnoses Cancer related pain G89.3 Palliative care by specialist Z51.5
--- NOTE | 2025-08-12 14:40 | Hospitalist Progress Note ---
Date of Service August 12, 2025 Assessment & Plan (1) Left arm weakness: (2) Cardiomyopathy: (3) CHF (congestive heart failure): (4) COPD (chronic obstructive pulmonary disease): (5) Vitamin D deficiency: (6) Pacemaker: (7) Sick sinus syndrome: (8) Acute heart failure with mildly reduced ejection fraction (HFmrEF, 41-49%): (9) CAD (coronary artery disease): (10) Hypertension: Plan #strokelike symptoms #left hand weakness #partial stocking-glove/well-demarcated peripheral mononeuropathy - Undifferentiated, stable but acute, CRP modestly elevated, presenting as peripheral neuropathy. - B12 level modestly elevated, CRP at 6.72 but no prior comparisons available, folate negative, procalcitonin negative, TSH 0.6, vitamin D and tick panel still pending - consider [employer] although no generalized symptoms of illness at this time - seizure precaution - resume home medications otherwise - MRI MRA unable to be completed secondary to compatibility of his pacemaker - consult to neurology pending at this time #history of CHF/ HFpEF - stable, no indication of decompensation at this time - telemetry monitoring, electrolytes as above, gentle fluid resuscitation through the night #severe protein calorie malnutrition - 50 pound weight loss over the course of the last year with ongoing increased metabolic demands, very poor appetite history of Bailey's esophagus - dysphagia assessment, speech therapy and dietary/nutrition evaluation #leukemia - undifferentiated at this time, no immediate records available, will request - early in the treatment cycle following with Dr. Mendoza, whom he is following with in the outpatient setting - consult to Dr. Mendoza # history of vitamin D deficiency, multiple electrolyte deficiencies - labs as above, routine monitoring, telemetry. #palliative care patient - follows with Dr. Steen, will consult them on admission # FEN - following bedside dysphagia evaluation will start cardiac diet, speech therapy and nutrition consult on admission as above #CODE STATUS - full code per his wishes Admission and Anticipated Discharge Date Admission Date: August 11, 2025 Subjective Doing about the same this morning. Absolutely no change in symptomatology for recovery of symptoms in the left arm. Reviewed that he is unable to have an MRI at this facility given incompatibility with his pacemaker. Palliative care is also following. Oncology and neurology consult still pending. Otherwise no events, no symptoms. No additional concerns per patient Physical Exam Constitutional: alert and oriented no apparent distress, reports feeling very cold which is not unusual for him Eyes: sclera clear and anicteric, pupils equal round reactive to light, extraocular movements intact ENMT: mucous membranes moist Neck: no evident bruit Respiratory: clear to auscultation bilaterally Cardiovascular: regular rate and rhythm no murmurs rubs or gallops Musculoskeletal: normal gait, normal movement except in the left hand Skin: no rash or discoloration Neurologic: Very localizable weakness to extension of all of the digits of the left hand, intact strength to flexion in all digits. Unable to extend at the wrist. There is a well-demarcated sensory change and a wedge distribution from the midpoint of the left forearm. This is unchanged compared to yesterday Psychiatric: Mildly anxious but otherwise intact, appropriate, normal thinking, logical and rational. Results & Data Results & Data Vital Signs (Past 12 Hours) Vital Signs Temp Pulse Pulse Resp BP Pulse Ox O2 Del Method 08/12/25 14:25 81 08/12/25 14:17 65 08/12/25 11:13 36.5 C 70 18 135/69 98 Room Air 08/12/25 07:35 36.4 C L 66 18 149/73 H 100 Room Air 08/12/25 02:48 36.6 C 71 21 151/71 H 97 Room Air Laboratory Results 08/12/25 08/11/25 08/11/25 06:06 23:11 19:12 WBC 11.95 H RBC 2.63 L Hgb 8.7 L Hct 28.4 L MCV 108.0 H MCH 33.1 MCHC 30.6 L RDW Std Deviation 86.1 H RDW Coeff of Dominique 21.8 H Plt Count 37 L Absolute Nucleated RBC 0.26 H Nucleated RBC % (auto) 2.2 Neutrophils % (Manual) 58 Lymphocytes % (Manual) 20 Monocytes % (Manual) 2 Eosinophils % (Manual) 1 Basophils % (Manual) 3 Metamyelocytes % (Man) 7 Myelocytes % (Man) 3 Promyelocytes % (Man) 3 Blast Cells % (Manual) 2 Other Cells % 1 Neutrophils # (Manual) 6.93 H Total Absolute Neuts 6.93 H Lymphocytes # (Manual) 2.39 Total Abs Lymphocytes 2.39 Monocytes # (Manual) 0.24 Eosinophils # (Manual) 0.12 Basophils # (Manual) 0.36 H Metamyelocytes # (Man) 0.84 H Myelocytes # (Manual) 0.36 H Promyelocytes # (Man) 0.36 H Blast Cells # (Man) 0.24 H Other Cells # 0.12 H Polychromasia 3+ Anisocytosis Present Macrocytosis Present Target Cells Tear Drop Cells 1+ Stomatocytes ESR 18 PT INR APTT PTT Ratio Sodium 133 L Potassium 4.2 Chloride 100 Carbon Dioxide 25 Anion Gap 8 BUN 12 Creatinine 0.68 Est Cr Clr Drug Dosing 102.9 eGFR 99.38 BUN/Creatinine Ratio 17.6 Glucose 94 Estimat Average Glucose 80 Hemoglobin A1c 4.4 L Calcium 8.6 Magnesium 2.2 Total Bilirubin 0.8 AST 18 ALT 17 Alkaline Phosphatase 56 Troponin I High Sens C-Reactive Protein 6.72 H Total Protein 6.1 Albumin 3.5 Globulin 2.6 Albumin/Globulin Ratio 1.3 Triglycerides 186 H Cholesterol 178 LDL Cholesterol, Calc 113 VLDL Cholesterol, Calc 37 H HDL Cholesterol 28 Cholesterol/HDL Ratio 6.4 H Vitamin B12 1411 H Folate 18.71 Procalcitonin 0.13 TSH 0.614 Nasal Screen MRSA (PCR) Negative Anaplasma Smear See Comment Babesia Smear See Comment Lyme Disease Screen Negative Blood Type Antibody Screen 08/11/25 15:24 WBC 15.37 H RBC 3.07 L Hgb 9.8 L Hct 33.3 L MCV 108.5 H MCH 31.9 MCHC 29.4 L RDW Std Deviation 89.5 H RDW Coeff of Dominique 22.3 H Plt Count 43 L Absolute Nucleated RBC 0.51 H Nucleated RBC % (auto) 3.3 Neutrophils % (Manual) 54 Lymphocytes % (Manual) 23 Monocytes % (Manual) 4 Eosinophils % (Manual) 1 Basophils % (Manual) 4 Metamyelocytes % (Man) 5 Myelocytes % (Man) 3 Promyelocytes % (Man) 2 Blast Cells % (Manual) 4 Other Cells % Neutrophils # (Manual) 8.30 H Total Absolute Neuts 8.30 H Lymphocytes # (Manual) 3.54 H Total Abs Lymphocytes 3.54 H Monocytes # (Manual) 0.61 H Eosinophils # (Manual) 0.15 Basophils # (Manual) 0.61 H Metamyelocytes # (Man) 0.77 H Myelocytes # (Manual) 0.46 H Promyelocytes # (Man) 0.31 H Blast Cells # (Man) 0.61 H Other Cells # Polychromasia Anisocytosis Present Macrocytosis Target Cells 1+ Tear Drop Cells 1+ Stomatocytes 2+ ESR PT 11.7 INR 1.1 APTT 28 PTT Ratio 1.0 Sodium 133 L Potassium 4.2 Chloride 96 L Carbon Dioxide 28 Anion Gap 9 BUN 13 Creatinine 0.79 Est Cr Clr Drug Dosing 88.6 eGFR 94.98 BUN/Creatinine Ratio 16.5 Glucose 128 H Estimat Average Glucose Hemoglobin A1c Calcium 9.3 Magnesium 2.2 Total Bilirubin 0.9 AST 20 ALT 23 Alkaline Phosphatase 67 Troponin I High Sens 17.9 C-Reactive Protein Total Protein 7.1 Albumin 3.8 Globulin 3.3 Albumin/Globulin Ratio 1.2 Triglycerides Cholesterol LDL Cholesterol, Calc VLDL Cholesterol, Calc HDL Cholesterol Cholesterol/HDL Ratio Vitamin B12 Folate Procalcitonin TSH Nasal Screen MRSA (PCR) Anaplasma Smear Babesia Smear Lyme Disease Screen Blood Type A Positive Antibody Screen NEGATIVE PG Care Time/CCT Total # of Minutes Spent Total Time Spent with Patient: Total time spent is greater than 50% in coordination of care (as documented) at patient's floor/unit and/or counseling patient: Coding Level of Care Code 61976 SUB INP/OBS CARE 2/35MIN Diagnoses Left arm weakness R29.898 Cardiomyopathy I42.9 CHF (congestive heart failure) I50.9 Heart failure chronicity: acute on chronic Heart failure type: unspecified COPD (chronic obstructive pulmonary disease) J44.9 Vitamin D deficiency E55.9 Pacemaker Z95.0 Sick sinus syndrome I49.5 Acute heart failure with mildly reduced ejection fraction (HFmrEF, 41-49%) I50.21 Coronary artery disease involving ven[place]ie ira coronary artery of ven[place] ir[place] heart without angina pectoris I25.10 Coronary Disease-Associated Artery/Lesion type: venetie ira artery [place] vs. transplanted heart: ven[place]ie ira heart Associated angina: without angina Hypertension I10 (3) CHF (congestive heart failure) Heart failure chronicity: acute on chronic Heart failure type: unspecified Qualified Code(s): I50.9 - Heart failure, unspecified (9) CAD (coronary artery disease) Coronary Disease-Associated Artery/Lesion type: venetie ir[place] artery [place] vs. transplanted heart: venetie ira heart Associated angina: without angina Qualified Code(s): I25.10 - Atherosclerotic heart disease of venetie ira coronary artery without angina pectoris
[2025-08-12 15:52] VITALS: BP 143/68; PULSE 70
--- NOTE | 2025-08-12 16:44 | Neurology Consultation ---
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 I do not believe this weakness is consistent with a cervical spine or brain problem. There are no other focal findings, meningeal signs, or encephalopathy on neurologic exam CT angiography revealed a significant stenosis of the origin of the right internal carotid artery as well as the left subclavian. This occurred despite being on aspirin for 2 to 3 years. In addition there is a large saccular aneurysm in the right cavernous area at the distal carotid artery. The patient has leukemia treated and followed by hematology Recommendations: 1. Switch aspirin to 75 mg clopidogrel daily. I am concerned with his large aneurysm and putting on dual antiplatelet therapy that might put him at risk for bleeding. Clopidogrel should do a better job in keeping the large arteries open comparing to aspirin. 2. Otherwise he does have an appointment to see vascular surgery next week for these stenoses 3. Unfortunately, the aneurysm is large and he needs to see a neurosurgeon regarding this. The neurosurgical consultation should take precedent compared to the carotid stenosis. 4. Physical and Occupational Therapy for the left hand weakness and numbness. 5. If his wrist does not improve significantly in the next 3 to 4 weeks, an EMG and nerve conduction study of the left upper extremity would be appropriate. This has to be done as an outpatient. Overall, I spent a total of 75 minutes with this case including review of records, review of CT films, direct evaluation of the patient, report generation, and discussing the case with the patient and at bedside, and Dr. Carbajal including differential diagnosis and treatment options. History of Present Illness Reason for Consultation: Patient is a 70-year-old, who I was asked to see at the request of Dr. Carbajal, for neurologic evaluation regarding new onset left upper extremity weakness Requesting Physician: Dr. Carbajal Attending Physician: Feliciano Carbajal MD History of Present Illness This patient has a history of hypertension, dyslipidemia, coronary artery disease, cardiomyopathy, sick sinus syndrome with a pacemaker since 2005 (that is not compatible with MRI) and leukemia (recently started pacritinib by Dr. Mendoza) The patient had a severe left wrist injury and his glass window and a nearly severed his wrist off. Extensive reconstructive surgery was done to save his hand and he was left with weakness in his thumb, 4th, and 5th fingers (with extension) and some dysesthesias and numbness. This has been stable over time Around 2:30 in the afternoon he was watching TV for a while, sitting in a chair with armrests when he had the sudden onset of weakness and numbness in his left hand. He could not extend his fingers or wrist and the back of his hand and back of his wrist were numb. He thinks he may have had his upper arm leaning against the armrest but he is not sure. He had no symptoms in his face, leg, the left side, speech, mentation, or vision. He arrived to the emergency room at 1458 with a temperature of 36.7, pulse 78, respiratory rate 15, blood pressure 147/72, and O2 saturation 95%. Except for the weakness of his left wrist and hand his examination showed no new focal findings. Erin telestroke wanted to give TNK but the patient declined. CT scan of the head was unremarkable. The angiography of the neck revealed high-grade stenosis at the origin of the right internal carotid artery and origin of the left subclavian artery. CT angiography of the head revealed a fusiform dilated basilar artery some carotid plaque distally but a right cavernous carotid saccular aneurysm 2 x 1.6 cm. The patient's pacemaker is incompatible with getting an MRI. Today he feels that there is slight improvement with movement at the wrist but the numbness is about the same. He has no new issues. Allergies Allergy/AdvReac Type Severity Reaction Status Date / Time escitalopram [From Lexapro] AdvReac Intermediate BECAME Verified 06/25/25 08:51 MORE DEPRESSED Home Medications Medication Instructions Recorded Confirmed Type nitroglycerin 0.4 mg sublingual 0.4 mg sublingual UD PRN Chest 06/26/24 08/11/25 Rx tablet (Nitrostat) Pain #25 tabs aspirin 81 mg tablet,delayed 81 mg PO HS 01/03/25 08/11/25 History release metoprolol succinate 100 mg 100 mg PO BID #180 tabs 01/14/25 08/11/25 Rx tablet,extended release 24 hr amlodipine 10 mg-benazepril 40 mg 1 cap PO QAM #90 caps 03/24/25 08/11/25 Rx capsule baclofen 10 mg tablet 10 mg PO TID PRN MUSCLE SPASMS 06/02/25 08/11/25 History docusate sodium 100 mg capsule 100 mg PO BID #60 caps 06/04/25 08/11/25 Rx polyethylene glycol 3350 17 gram 17 g PO BID #0 ea 06/04/25 08/11/25 Rx oral powder packet (Miralax) omeprazole 20 mg capsule,delayed 20 mg PO DAILY 08/11/25 08/11/25 History release oxycodone 10 mg tablet 10 mg PO .EVERY 4-6 HOURS PRN Pain 08/11/25 08/11/25 History oxycodone 15 mg tablet,crush 15 mg PO Q12 08/11/25 08/11/25 History resistant,extended release 12 hr (OxyContin) pacritinib 100 mg capsule (Vonjo) 200 mg PO BID 08/11/25 08/12/25 History prochlorperazine maleate 10 mg 10 mg PO Q6 PRN Nausea 08/11/25 08/11/25 History tablet Patient History Medical History Hyperlipidemia GERD (gastroesophageal reflux disease) Apneic episode Acute heart failure with mildly reduced ejection fraction (HFmrEF, 41-49%) Alcohol use disorder CAD (coronary artery disease) (1998) Cardiac Catheterization revealed 100% RCA occlusion with well developed collaterals with stenosis of obtuse marginal and left circumflex with stent placement. Rectal bleeding Bailey esophagus Hypertension Surgical History History of cataract surgery LEFT History of colonoscopy History of esophagogastroduodenoscopy (EGD) History of AAA (abdominal aortic aneurysm) repair History of surgery LEFT HAND REATTACHED AFTER TRAUMA (30+YEARS AGO). PT HAS SOME NUMBNESS AND TINGLING BUT HAS FULL FUNCTION. History of surgery REPAIR OF DEVIATED SEPTUM History of herniorrhaphy MULTIPLE, INCLUDING UMBILICAL History of cardiac cath ANGIOPLASTY X2, STENT PLACEMENT (20 YEARS AGO) Family History Father Diabetes Myocardial infarction Hypertension Mother Diabetes Hypertension Gall bladder disease Other No family history of adverse response to anesthesia Denies family history of Ovarian cancer Prostate cancer Breast cancer Lung cancer Colorectal cancer Social History (Updated 08/12/25 @ 17:13 by Magdiel Goyal MD) Smoking Status: Former smoker Tobacco Type: Cigarettes Age Started Using Tobacco: 13; Age Quit Using Tobacco: 46; packs per day: 1; Second Hand Exposure: No; Do You Dip or Chew Tobacco: No; Hx Alcohol Use: No Hx Substance Use: No Preferred Language: Setswana Communication Ability: Effective Visual Impairment: Limited Hearing Ability: Normal Addiction Medicine Physician Required: No Beliefs That Will Affect Care: None marital status: Current Living Situation: Family current occupational status: retired 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) How many Children do You have Comment: 1 adult step son Feels Safe at Home: Yes Childhood Exposure to Second-Hand Smoke: No Diet: other Diet Comment: Mediterranean diet caffeine: Yes during the past year weight has: decreased > 10 lbs Dental Care, Regularly: No Physical Activity Frequency: Does not Exercise Seatbelt Use: always Sunscreen Use: No Do you think of yourself as: straight/heterosexual Gender Identity: Male Assistive Devices: None Review of Systems Constitutional: no fever, no fatigue and no weakness Eyes: no diplopia, no eye pain and no worsening vision Ear, Nose, Mouth, Throat: no ear pain, no tinnitus, no hearing loss, no dizziness, no snoring, no hoarseness and no dysphagia Respiratory: no cough and no dyspnea Cardiovascular: no chest pain, no palpitations and no lightheadedness Gastrointestinal: no abdominal pain, no nausea and no vomiting Musculoskeletal: no back pain, no neck pain, no radicular pain, no joint pain and no myalgia Integumentary: no rash and no lesions Neurologic: + localized weakness and + numbness; no gait abnormality, no generalized weakness, no tingling, no tremor(s), no abnormal movements, no headache(s), no abnormal speech, no confusion and no memory loss Psychiatric: no depression, no irritability, no anxiety, no difficulty concentrating, no confusion and no hallucinations Endocrine: no fatigue and no flushing Hematologic / Lymphatic: no easy bleeding and no easy bruising Allergy / Immunological: no urticaria and no problem reported Exam (Neuro) Physical Exam: The patient is right-handed. The patient is awake, alert, and attentive. Speech is normal without any aphasia or dysarthria. Mentation and thought processes are intact, with full orientation and normal fund of knowledge. Mood and affect are normal and appropriate. Appearance and grooming are normal. Short and long-term memory are intact to conversation. Pupils are 4-5 mm bilaterally and reactive to light. Extraocular eye muscles are intact without nystagmus. Visual acuity and visual evans seem normal grossly to confrontation. There are no deficits to sensation in the face in all 3 distributions of the fifth cranial nerve bilaterally. Corneal reflexes are positive bilaterally. Fac ial strength and symmetry was normal bilaterally. Hearing seems intact grossly to voice and finger rub bilaterally. Palate moves well without asymmetry. There is normal sternocleidomastoid and trapezius strength bilaterally. Tongue is midline with good strength bilaterally. Neck has a full range of motion without discomfort. There are no cervical bruits bilaterally. There are no cranial or ocular bruits. Heart is without murmur. There is a regular rhythm and rate. Cervical, thoracic, and lumbar spine are nontender to palpation. Gait is narrow based, with good arm swing, turns, and stance. With outstretched arms there is no drift. There are no resting, postural, or action tremors. There is no ataxia with finger to nose testing. There is good facility in the right hand and decreased in the left hand.. No other abnormal involuntary movements are noted. Motor strength is 5/5 diffusely in the right upper extremity including deltoids, biceps, triceps, brachioradialis, wrist flexors and extensors, towboat operator, and intrinsic hand muscles. Motor strength in the left upper extremity is 5/5 in the deltoids, biceps, triceps, brachial radialis muscles. The finger and wrist extensors on the left are 1/5. Home Economics Extension Worker is 4/5. Motor strength is 5/5 diffusely in the legs bilaterally including hip flexors, quadriceps, hamstrings, gastrocnemius, tibialis anterior, tibialis posterior, and Peroneii muscles bilaterally. Toe extensors are normal and there is good bulk in the extensor digitorum brevis muscles bilaterally. The limbs have good tone without rigidity or spasticity. There is no atrophy not ed in the muscles. Muscle bulk is normal, there is no tenderness to palpation, no myotonia to percussion, and no fasciculations seen. Sensory examination is intact to touch and pin throughout all 4 limbs except for decreased sensation to pin and touch in the dorsum of the wrist and hand on the left with some milder decrease sensation to pin and touch in the dorsum of the fingers. Reflexes are 2/4 in the biceps, triceps, brachioradialis, and quadriceps tendons bilaterally. Achilles tendon reflexes are 1/4 bilaterally Toes are downgoing with plantar stimulation bilaterally. Peripheral pulses are present and of normal quality distally in all 4 limbs. There is no peripheral edema noted in the limbs. Results & Data Vital Signs (Past 12 Hours) Vital Signs Temp Pulse Pulse Resp BP Pulse Ox O2 Del Method 08/12/25 15:51 36.5 C 70 18 143/68 H 98 Room Air 08/12/25 14:25 81 08/12/25 14:17 65 08/12/25 11:13 36.5 C 70 18 135/69 98 Room Air 08/12/25 07:35 36.4 C L 66 18 149/73 H 100 Room Air PG Care Time/CCT Total # of Minutes Spent Total Time Spent with Patient: Total time spent is greater than 50% in coordination of care (as documented) at patient's floor/unit and/or counseling patient: Coding Level of Care Code 44202 INT INP/OBS CARE 3/75MIN Diagnoses Left wrist drop M21.332 Stenosis of right internal carotid artery I65.21 Right internal carotid artery aneurysm I67.1 Time Spent (min) 75
[2025-08-12] MEDS ORDERED: STROKE PATIENT DISCHARGE STA (17:59)
--- NOTE | 2025-08-12 18:02 | Discharge Summary ---
Discharge Summary Date of Service August 12, 2025 Principal Dx & Hospital Course #1 = Principal Diagnosis (1) Left arm weakness: (2) Cardiomyopathy: (3) CHF (congestive heart failure): (4) COPD (chronic obstructive pulmonary disease): (5) Vitamin D deficiency: (6) Pacemaker: (7) Sick sinus syndrome: (8) Acute heart failure with mildly reduced ejection fraction (HFmrEF, 41-49%): (9) Hypertension: (10) Radial nerve palsy: Plan #left hand weakness/wrist drop #partial stocking-glove/well-demarcated peripheral mononeuropathy - See neurology consult, consistent with radial nerve palsy - B12 level modestly elevated, CRP at 6.72 but no prior comparisons available, folate negative, procalcitonin negative, TSH 0.6, vitamin D and tick panel still pending - Supportive cares, arm sling, DC to home, home PT orders placed - followup in the primary clinic for ongoing mgmt, PT orders if needed #history of CHF/ HFpEF - stable, no indication of decompensation at this time - telemetry monitoring, electrolytes as above, gentle fluid resuscitation through the night #severe protein calorie malnutrition - 50 pound weight loss over the course of the last year with ongoing increased metabolic demands, very poor appetite history of Bailey's esophagus - dysphagia assessment, speech therapy and dietary/nutrition evaluation #leukemia - consult to Dr. Mendoza, no changes #Saccular Aneurysm -following up with neurosurgery this week for other concerns, they will address at that visit. # history of vitamin D deficiency, multiple electrolyte deficiencies - labs as above pending at the time of discharge, routine monitoring, telemetry. #palliative care patient - follows with Dr. Steen, see consult #CODE STATUS - full code per his wishes Admission HPI Per Admitting Provider 70-year-old [id number] male ongoing initial treatment for leukemia, COPD, CHF, renal artery stenosis, Bailey's esophagus, pacemaker/sick sinus syndrome, history of repaired aortic aneurysm, history of recurrent electrolyte abnormalities presented to the emergency department with abrupt onset left hand weakness while watching TV this afternoon approximately 2:30 in the afternoon. States he has never had symptoms like in the past has a distant history of near severing of that left arm just about the region where the symptoms started. States he was watching TV he noticed he could not lift his left hand notified his and was brought directly here for evaluation under stroke alert. Symptoms have not changed or progressed or improved since onset. Initial evaluation in the emergency department with head CT, telestroke neurology evaluation Offered alteplase, patient felt it was not worth the risks. Advised for MRI and bedside neurology evaluation. Patient elected for admission here for MRI [facility] in lieu of transfer to larger stroke center. He has a pacemaker so we will need to coordinate this for imaging. He was referred to admission with strokelike symptoms, stable presentation consistent with peripheral neuropathy. Referred for further evaluation, imaging and treatment as needed Discharge Exam Constitutional Constitutional: alert and oriented no apparent distress, reports feeling very cold which is not unusual for him Eyes: sclera clear and anicteric, pupils equal round reactive to light, extraocular movements intact ENMT: mucous membranes moist Neck: no evident bruit Respiratory: clear to auscultation bilaterally Cardiovascular: regular rate and rhythm no murmurs rubs or gallops Musculoskeletal: normal gait, normal movement except in the left hand Skin: no rash or discoloration Neurologic: Very localizable weakness to extension of all of the digits of the left hand, intact strength to flexion in all digits. Unable to extend at the wrist. There is a well-demarcated sensory change and a wedge distribution from the midpoint of the left forearm. This is unchanged compared to yesterday Psychiatric: Mildly anxious but otherwise intact, appropriate, normal thinking, logical and rational. Discharge Plan Discharge Items Patient Disposition: Home - Self-Care Reason For Visit: STROKE LIKE SYMPTONS Discharge Diagnosis: Radial Nerve Palsy Condition on Discharge: Fair Activity: Per Instructions section Activity Comment: Arm Sling for support Lifting: Gradually increase as tolerated Bathing: No limitations Non-emergency contact: Primary Care Provider Call non-emergency contact if: you have any medication questions, your symptoms worsen and your pain is not controlled Follow-up/Referrals: Sarika Lin DO [Primary Care Provider] - Diet: Regular Addtl Attending Provider Instructions: Take the prescription for physical therapy to local therapy office and they will set up an appointment and start evaluation and treatment plan Pending Studies at Discharge: Yes Studies:: Tickborne diseases panel, vitamin D levels Stand-Alone Forms: My Tour Raiser, Smoking Cessation, Medications to Prevent Stroke Medications and DC Order Prescriptions: New clopidogrel [Plavix] 75 mg tablet 75 mg PO DAILY Qty: 30 0RF Continued metoprolol succinate 100 mg tablet extended release 24 hr 100 mg PO BID Qty: 180 3RF amlodipine-benazepril 10-40 mg capsule 1 cap PO QAM Qty: 90 3RF nitroglycerin [Nitrostat] 0.4 mg tablet, sublingual 0.4 mg Sublingual UD PRN (Reason: Chest Pain) Qty: 25 3RF oxycodone 10 mg tablet 10 mg PO .EVERY 4-6 HOURS PRN (Reason: Pain) prochlorperazine maleate 10 mg tablet 10 mg PO Q6 PRN (Reason: Nausea) oxycodone [OxyContin] 15 mg tablet,oral only,ext.rel.12 hr 15 mg PO Q12 Rx Instructions: ORDERED FOR 10 DAYS on 08/01/25 Vonjo 100 mg capsule 200 mg PO BID baclofen 10 mg tablet 10 mg PO TID PRN (Reason: MUSCLE SPASMS) polyethylene glycol 3350 [Miralax] 17 gram Powder In Packet 17 g PO BID Qty: 0 0RF docusate sodium 100 mg Capsule 100 mg PO BID Qty: 60 0RF Held omeprazole 20 mg capsule,delayed release(DR/EC) 20 mg PO DAILY Hold Instructions: Resume on 08/12/25. Hold until told to resume by PCP Discontinued aspirin 81 mg Tablet,Delayed Release (Dr/Ec) 81 mg PO HS Discharge Orders: Discharge Order (Routine); Ordered 08/12/25 Ordered By: Feliciano Salinas/Other Patient Handouts: ED Wrist Drop Admission Data Admit Date/Time: 08/11/25 18:52 Attending Provider: Feliciano Carbajal Admit Provider: Feliciano Carbajal Primary Care Provider: Sarika Lin Other Providers: Feliciano Carbajal; Argelia Mendoza; Chad Dominguez; Opal Ventura Hospital Stay Data Consultations 08/11/25 17:58 ED Decision to Admit Stat 08/11/25 19:53 Consult Hematology Routine Consult Neurology Routine Consult Palliative Care Routine Diagnostic Imagining Performed 08/11/25 15:21 CT angio head w con Stat CT angio neck with con Stat CT head/brain wo con Stat Pending Results Patient Have Any Pending Studies at Discharge: Yes Discharge Instructions Given to Patient (Per Discharging Provider) Take the prescription for physical therapy to local therapy office and they will set up an appointment and start evaluation and treatment plan Total Time Total Time Spent Total Time Spent (In Minutes): 38 spent reviewing case with neurology, adjusting medications, RX modification and reviewing labs Coding Level of Care Code 76600 INP/OBS DISCH >30 MIN Diagnoses Left arm weakness R29.898 Cardiomyopathy I42.9 CHF (congestive heart failure) I50.9 Heart failure chronicity: acute on chronic Heart failure type: unspecified COPD (chronic obstructive pulmonary disease) J44.9 Vitamin D deficiency E55.9 Pacemaker Z95.0 Sick sinus syndrome I49.5 Acute heart failure with mildly reduced ejection fraction (HFmrEF, 41-49%) I50.21 Hypertension I10 Radial nerve palsy G56.30
--- NOTE | 2025-08-12 18:06 | Electrocardiogram Report ---
Test Reason : Blood Pressure : */* mmHG Vent. Rate : 74 BPM Atrial Rate : 74 BPM P-R Int : 182 ms QRS Dur : 124 ms QT Int : 418 ms P-R-T Axes : -81 -74 13 degrees QTcB Int : 463 ms Atrial-paced rhythm Left axis deviation Right bundle branch block Minimal voltage criteria for LVH, may be normal variant Poor R wave progression, consider anterior WI vs. lead placement vs. LVH Abnormal ECG Confirmed by Sourav Sy ([id number]) on 08/12/2025 6:05:32 PM Referred By: Confirmed By: Sourav Sy
[2025-08-12] MEDS ORDERED: [UNRECOGNIZED DRUG - OTHER] PO SCH (21:00)
[2025-08-12] MEDS ORDERED: [UNRECOGNIZED DRUG - OTHER] PO SCH (21:00)
--- NOTE | 2025-08-14 14:05 | Pharmacy Report ---
Pharmacist Stroke Counseling - Date of Service August 14, 2025 - Scope: Pharmacy has been consulted to provide medication discharge counseling for this patient admitted with stroke-like symptoms as per the Pharmacist Discharge Counseling for Stroke Patients Protocol. - Medications on Discharge: Home Medications Medication Instructions Recorded Confirmed baclofen 10 mg tablet 10 mg PO TID PRN MUSCLE SPASMS 06/02/25 08/11/25 omeprazole 20 mg capsule,delayed 20 mg PO DAILY 08/11/25 08/11/25 release oxycodone 10 mg tablet 10 mg PO .EVERY 4-6 HOURS PRN Pain 08/11/25 08/11/25 oxycodone 15 mg tablet,crush 15 mg PO Q12 08/11/25 08/11/25 resistant,extended release 12 hr (OxyContin) pacritinib 100 mg capsule (Vonjo) 200 mg PO BID 08/11/25 08/12/25 prochlorperazine maleate 10 mg 10 mg PO Q6 PRN Nausea 08/11/25 08/11/25 tablet New Rx's Medication Instructions Recorded nitroglycerin 0.4 mg sublingual 0.4 mg sublingual UD PRN Chest 06/26/24 tablet (Nitrostat) Pain #25 tabs metoprolol succinate 100 mg 100 mg PO BID #180 tabs 01/14/25 tablet,extended release 24 hr amlodipine 10 mg-benazepril 40 mg 1 cap PO QAM #90 caps 03/24/25 capsule docusate sodium 100 mg capsule 100 mg PO BID #60 caps 06/04/25 polyethylene glycol 3350 17 gram 17 g PO BID #0 ea 06/04/25 oral powder packet (Miralax) clopidogrel 75 mg tablet (Plavix) 75 mg PO DAILY #30 tabs 08/12/25 - Action: The above medications, specifically ones for stroke treatment/prophylaxis, have been reviewed in detail with the patient and/or patient provider relations representative(s) prior to discharge. This includes indication, common adverse reactions, drug interactions, and medication administration. Medication counseling has been employed using the teach-back method to ensure understanding. - Outcome: The patient and/or patient provider relations representative(s) have demonstrated understanding of the medications. Additional comments: * Patient confirmed that medication (clopidogrel) was picked up from the pharmacy and that he has stopped the aspirin as instructed. * He has also stopped taking the omeprazole as instructed due to interaction with clopidogrel. I instructed patient to discuss with PCP if he develops GERD symptoms. * No obvious barriers to medication compliance identified. Thank you for allowing pharmacy to be involved in the care of this patient. Please call [phone] with any additional questions
[2025-08-16 16:12] LABS: Vitamin D2,1,25 <8 pg/mL; Vitamin D3,1,25 41 pg/mL
[2025-08-17 20:47] LABS: Q Fever IgG, Phase I NEGATIVE
== END 2025-08-12 18:30 | disposition home or self-care (01) ==
LOC: ED 15:12 → INTOOBSV 18:52 → EDINP 18:52 → 2S 19:53

== ENCOUNTER 2025-08-26 12:50 | Observation (INO) ==
--- NOTE | 2025-08-26 13:14 | Emergency Department Note ---
Impression & Plan Epigastric abdominal pain, Abnormal weight loss, Thrombocytopenia ED Provider Note NAME: GILMA AVILA AGE: 70 SEX: M : 1955 ARRIVES VIA: Walk-In INFORMANT: Patient, ED PROVIDER(S): Pablo Byrne DO CHIEF COMPLAINT: Abdominal pain HPI: The patient is a 70-year-old male who presented to the emergency department for an evaluation of abdominal pain. He states that the symptoms have been ongoing over the last several weeks. The patient was seen by his primary care physician. The patient was also seen in the emergency department for this pain. He was seen in July. At that time he had a normal workup which did not show the cause of his symptoms. The patient was at gastroenterology today. He was sent to the emergency department to be admitted for upper endoscopy by GI. The patient's had weight loss. He denies having any black or tarry stools. ROS: See above HPI for pertinent positives & negatives. A total of 10 systems reviewed and were otherwise negative. PAST MEDICAL HISTORY: See Below PAST SURGICAL HISTORY: See Below FAMILY HISTORY: See Below SOCIAL HISTORY: See Below HOME MEDICATIONS: See Below ALLERGIES: See Below VITALS: See Below PHYSICAL EXAMINATION: GENERAL: Patient is awake alert in no acute distress patient is resting comfortably and showing no signs of anxiety EYES: The conjunctivae are clear. The pupils are round and reactive. EARS, NOSE, MOUTH AND THROAT: The nose is without any evidence of any deformity. NECK: The neck is nontender and supple. RESPIRATORY: Normal respiratory effort is noted there is no evidence of wheezing rhonchi or rales CARDIOVASCULAR: Regular rate and rhythm noted there no murmurs rubs or gallops normal S1 normal S2. GASTROINTESTINAL: The abdomen is soft and nondistended. There is diffuse tenderness to palpation especially in the suprapubic region. There is no guarding rigidity noted. MUSCULOSKELETAL/EXTREMITIES: There is no evidence of gross deformity full range of motion is noted in the hips and shoulders. SKIN: There is no obvious evidence of any rash. There are no petechiae, pallor or cyanosis noted. NEUROLOGIC: Patient is awake alert and oriented x3 MEDICAL DECISION MAKING: The patient is a 70-year-old male who presented to the emergency department for an evaluation of epigastric pain. The patient's had several weeks of epigastric pain. He started to note weight loss. The patient has a history of myelofibrosis. The patient was seen in our emergency department previously and had a workup which included radiographic and laboratory studies. The patient did not appear to meet criteria for inpatient management at that time. The patient was seen by his primary care physician and then sent for outpatient GI follow-up. The patient was seen by the gastroenterology group but sent to the emergency department for possible admission as well as expedited upper endoscopy. [facility] to evaluate the patient in the emergency department. Triage Nursing notes reviewed. Prior medical records reviewed Vital Signs: reviewed and remarkable for no significant abnormalities Differential diagnosis: Etiologies such as appendicitis, diverticulitis, obstruction, inflammatory bowel disease, renal colic, PUD, biliary pathology, pancreatitis, mesenteric ischemia, aortic pathology, infections, genitourinary, UTI, perforated viscus, as well as others were entertained. ER treatment provided: See below Diagnostics interpreted by me: ECG: EKG was obtained in the emergency department. My interpretation is atrial paced rhythm at 72 bpm. Right bundle branch block pattern was favored with nonspecific ST abnormalities noted. LVH was suggested by voltage criteria. This was compared to a tracing from August 01, 2025. No changes were noted. Cardiac Monitoring: An order was placed for continuous cardiac monitoring. The monitor shows a rate of 75 bpm with sinus rhythm. Laboratory studies: As stated above and show below. Imaging studies: See below. Radiographic imaging was reviewed by myself Consultation(s): I discussed this case with Dr. Lin who [facility] 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 Left wrist drop Left arm weakness (Acute) Cardiomyopathy Cancer related pain CHF (congestive heart failure) (Acute) Anxiety COPD (chronic obstructive pulmonary disease) Hyponatremia Vitamin D deficiency Hypertension Proteinuria Left renal artery stenosis (Acute) Former smoker (Acute) 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 (Acute) Pacemaker Incisional hernia Sick sinus syndrome (Chronic 2005) Meditronic Dual chamber pacemaker placed 01/02/2006 Abdominal aortic aneurysm S/P REPAIR 12 YEARS PRIOR, [facility] Medical History Hyperlipidemia GERD (gastroesophageal reflux disease) Apneic episode Acute heart failure with mildly reduced ejection fraction (HFmrEF, 41-49%) Alcohol use disorder CAD (coronary artery disease) (1998) Cardiac Catheterization revealed 100% RCA occlusion with well developed collaterals with stenosis of obtuse marginal and left circumflex with stent placement. Rectal bleeding Bailey esophagus Hypertension Surgical History History of cataract surgery LEFT History of colonoscopy History of esophagogastroduodenoscopy (EGD) History of AAA (abdominal aortic aneurysm) repair History of surgery LEFT HAND REATTACHED AFTER TRAUMA (30+YEARS AGO). PT HAS SOME NUMBNESS AND TINGLING BUT HAS FULL FUNCTION. History of surgery REPAIR OF DEVIATED SEPTUM History of herniorrhaphy MULTIPLE, INCLUDING UMBILICAL History of cardiac cath ANGIOPLASTY X2, STENT PLACEMENT (20 YEARS AGO) Family History Father Diabetes Myocardial infarction Hypertension Mother Diabetes Hypertension Gall bladder disease Other No family history of adverse response to anesthesia Denies family history of Ovarian cancer Prostate cancer Breast cancer Lung cancer Colorectal cancer Social History Smoking Status: Former smoker Tobacco Type: Cigarettes Age Started Using Tobacco: 13; Age Quit Using Tobacco: 46; packs per day: 1; Second Hand Exposure: No; Do You Dip or Chew Tobacco: No; Hx Alcohol Use: No Hx Substance Use: No Preferred Language: Nepali Communication Ability: Effective Visual Impairment: Limited Hearing Ability: Normal Beaming Inspector Required: No Beliefs That Will Affect Care: None marital status: Current Living Situation: Family current occupational status: retired 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) How many Children do You have Comment: 1 adult step son Feels Safe at Home: Yes Childhood Exposure to Second-Hand Smoke: No Diet: other Diet Comment: Mediterranean diet caffeine: Yes during the past year weight has: decreased > 10 lbs Dental Care, Regularly: No Physical Activity Frequency: Does not Exercise Seatbelt Use: always Sunscreen Use: No Do you think of yourself as: straight/heterosexual Gender Identity: Male Assistive Devices: None Allergies Allergies Allergy/AdvReac Type Severity Reaction Status Date / Time escitalopram [From Lexapro] AdvReac Intermediate BECAME Verified 08/26/25 11:18 MORE DEPRESSED Home Meds Home Medications Medication Instructions Recorded Confirmed baclofen 10 mg tablet 10 mg PO TID PRN MUSCLE SPASMS 06/02/25 08/26/25 omeprazole 20 mg capsule,delayed 20 mg PO DAILY 08/11/25 08/26/25 release oxycodone 10 mg tablet 10 mg PO .EVERY 4-6 HOURS PRN Pain 08/11/25 08/26/25 oxycodone 15 mg tablet,crush 15 mg PO Q12 08/11/25 08/26/25 resistant,extended release 12 hr (OxyContin) pacritinib 100 mg capsule (Vonjo) 200 mg PO BID 08/11/25 08/26/25 prochlorperazine maleate 10 mg 10 mg PO Q6 PRN Nausea 08/11/25 08/26/25 tablet multivitamin with minerals 1 cap PO DAILY 08/22/25 08/26/25 Previous Rx's Medication Instructions Recorded nitroglycerin 0.4 mg sublingual 0.4 mg sublingual UD PRN Chest 06/26/24 tablet (Nitrostat) Pain #25 tabs metoprolol succinate 100 mg 100 mg PO BID #180 tabs 01/14/25 tablet,extended release 24 hr amlodipine 10 mg-benazepril 40 mg 1 cap PO QAM #90 caps 03/24/25 capsule docusate sodium 100 mg capsule 100 mg PO BID #60 caps 06/04/25 clopidogrel 75 mg tablet (Plavix) 75 mg PO DAILY #90 tabs 08/22/25 doxycycline hyclate 100 mg capsule 100 mg PO BID #20 caps 08/22/25 Results & Data (ED) Vital Signs Vital Signs - 24 hr 08/26/25 12:57 08/26/25 13:33 Temperature 36.5 C Temperature Source Temporal Artery Scan Pulse Rate 76 Respiratory Rate 18 Blood Pressure 128/67 Blood Pressure Mean 87 Pulse Oximetry 100 97 Oxygen Delivery Method Room Air Room Air Sepsis Recent Fever Within 48 Hours No Sepsis New/Unexplained Change in Mental Status No Sepsis Action Taken by Nursing No Action Required Home Medications Current Medication List: was personally reviewed by me Laboratory Data Attestation: I reviewed the patient's lab results. 08/26/25 13:17 08/26/25 15:02 Lab Results 08/26/25 Range/Units 13:17 WBC 17.95 H (4.8-10.8) K/ul RBC 3.19 L (4.70-6.10) M/uL Hgb 10.2 L (14.0-18.0) g/dl Hct 34.1 L (42.0-52.0) % MCV 106.9 H (80.0-100.0) fL MCH 32.0 (25.0-34.0) pg MCHC 29.9 L (32.0-36.0) g/dL RDW Std Deviation 90.1 H (36.4-46.3) fL RDW Coeff of Dominique 24.0 H (11.5-14.5) % Plt Count 22 L* (130-400) K/uL Absolute Nucleated RBC 0.63 H (0.00-0.12) K/uL Nucleated RBC % (auto) 3.5 % Neutrophils % (Manual) 62 % Lymphocytes % (Manual) 20 % Monocytes % (Manual) 4 % Basophils % (Manual) 2 % Metamyelocytes % (Man) 1 % Myelocytes % (Man) 3 % Promyelocytes % (Man) 5 % Blast Cells % (Manual) 3 % Neutrophils # (Manual) 11.13 H (1.40-6.50) K/uL Total Absolute Neuts 11.13 H (1.4-6.5) K/uL Lymphocytes # (Manual) 3.59 H (1.2-3.4) K/uL Total Abs Lymphocytes 3.59 H (1.2-3.4) K/uL Monocytes # (Manual) 0.72 H (0.11-0.59) K/uL Basophils # (Manual) 0.36 H (0-0.2) K/uL Metamyelocytes # (Man) 0.18 H (0-0) K/uL Myelocytes # (Manual) 0.54 H (0-0) K/uL Promyelocytes # (Man) 0.90 H (0-0) K/uL Blast Cells # (Man) 0.54 H (0-0) K/uL Polychromasia 1+ Anisocytosis Present Tear Drop Cells 1+ Stomatocytes 2+ PT Cancelled INR Cancelled APTT Cancelled PTT Ratio Cancelled Sodium 132 L (136-145) mmol/L Potassium TNP Chloride 95 L (98-107) mmol/L Carbon Dioxide 27 (21-32) mmol/L Anion Gap 10 (3-11) BUN 14 (6-23) mg/dl Creatinine 0.65 (0.6-1.4) mg/dl Est Cr Clr Drug Dosing Not Reportable eGFR 100.74 BUN/Creatinine Ratio 21.5 H (10-20) Glucose 107 H (70-99(Fasting)) mg/dl Calcium 9.5 (8.6-10.3) mg/dl Total Bilirubin 1.1 H (0.2-1.0) mg/dl AST TNP ALT 36 (7-52) U/L Alkaline Phosphatase 69 (34-104) U/L Troponin I High Sens 20.3 H (0-20) pg/ml Total Protein 7.4 (6.0-8.3) gm/dl Albumin 4.2 (3.4-5.0) gm/dl Globulin 3.2 (2.5-4.0) gm/dl Albumin/Globulin Ratio 1.3 (0.9-2) Lipase 110 H (11-82) U/L Urine Color Dark Yellow Urine Appearance Clear (Clear) Urine pH 7.5 (4.5-7.5) Ur Specific [place] 1.021 (1.000-1.030) Urine Protein 2+ H (Negative) Urine Glucose (UA) Negative (Negative) Urine Ketones 2+ H (Negative) Urine Blood Negative (Negative) Urine Nitrite Negative (Negative) Urine Bilirubin 1+ H (Negative) Urine Urobilinogen Negative (Negative) Ur Leukocyte Esterase Trace H (Negative) Urine WBC (Auto) 0-5 (0-5) /hpf Urine RBC (Auto) 0-2 (0-2) /hpf U Hyaline Cast (Auto) 0-2 (0-2) /lpf U Epithel Cells (Auto) 0-2 (0-2) /hpf Urine Bacteria (Auto) None Seen (None Seen) Urine Comment Imaging Data Attestation: I personally reviewed and interpreted this imaging study as follows: My Impression: 1 view chest x-ray was obtained in the emergency department. My interpretation is no free air or definite infiltrate, final report below. Radiologist's Impression: Chest X-Ray 08/26/25 13:05 XR chest 1V portable CLINICAL HISTORY: sent by GI COMPARISON STUDY: 08/11/2025 FINDINGS: Stable pacemaker. Heart size and pulmonary vasculature are normal. No consolidation or pleural effusion. No pneumothorax. IMPRESSION: No acute findings. ACT 112: Negative or not required by law. Electronically signed by: Steve Martinez M.D. 08/26/2025 1:28 PM KUB X-Ray 08/26/25 13:05 KUB HISTORY: sent by GI COMPARISON STUDY: 08/01/2025 FINDINGS: There is moderate retained stool. No bowel obstruction seen. No gross free air. Scattered vascular calcifications again seen. IMPRESSION: No acute findings. ACT 112: Negative or not required by law. The above report was generated using voice recognition software. It may contain grammatical, syntax or spelling errors. Electronically signed by: Steve Martinez M.D. 08/26/2025 2:45 PM Discharge Plan Visit Data Chief Complaint: Abdominal Pain Stated Complaint: BELLY PAIN ED Provider: Pablo Byrne Discharge Problem: Epigastric abdominal pain, Abnormal weight loss, Thrombocytopenia Patient Disposition: Admitted As Inpatient Condition: Fair Discharge Instructions Interventions: ED Discharge Assessment Last Done: 08/26/25 14:55
--- NOTE | 2025-08-26 13:29 | XRay Report ---
XR chest 1V portable CLINICAL HISTORY: sent by GI COMPARISON STUDY: 08/11/2025 FINDINGS: Stable pacemaker. Heart size and pulmonary vasculature are normal. No consolidation or pleu ral effusion. No pneumothorax. IMPRESSION: No acute findings. ACT 112: Negative or not required by law. Electronically signed by: Steve Martinez M.D. 08/26/2025 1:28 PM
[2025-08-26 13:46] LABS: Appearance Urine Clear (Clear); Bacteria Urine Automated None Seen (None Seen); Cast Urine Automated 0-2 /lpf (0-2); Epithelial Cell Urine Auto 0-2 /hpf (0-2); Glucose Urine UA Negative (Negative); RBC Urine Automated 0-2 /hpf (0-2); WBC Urine Automated 0-5 /hpf (0-5)
[2025-08-26 13:47] LABS: Hematocrit (blood only) 34.1 % (42.0-52.0); Hemoglobin 10.2 g/dl (14.0-18.0); Mean Corpuscular Hemoglobin 32.0 pg (25.0-34.0); Mean Corpuscular Volume 106.9 fL (80.0-100.0); Platelet Count 22 K/uL (130-400); RDW Standard Deviation 90.1 fL (36.4-46.3); Red Blood Count 3.19 M/uL (4.70-6.10); White Blood Count 17.95 K/ul (4.8-10.8)
--- NOTE | 2025-08-26 13:55 | Gastrointestinal Consultation ---
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 Inability to tolerate PO intake, post-prandial abd pain, dysphagia - NPO after midnight - EGD 08/27/25 2. Weight loss - CTAP w/ IV/PO contrast recommended - Inpatient EGD - Outpatient colonoscopy unless otherwise indicated 3. History of Mcfarlane's - Omeprazole was d/c due to drug interaction w/ plavix - Please start alternate PPI - Pantoprazole 40 mg once daily 4. 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 Please call with any acute changes, questions or concerns. Please see addendum below with additional recommendation from my supervising physician. (2) Weight loss: (3) Abdominal pain: Supervising Physician Co-Signing Physician Notes History of Mcfarlane's. Now progressive weight loss. Weight loss seems to be associate with decreased p.o. intake which is prompted by lack of appetite. States even putting food in his mouth is a problem. There is associated nausea. Differential can be a medication effect, esophageal neoplasm. However 1 should strongly consider the possibility of marijuana hyperemesis syndrome. He smokes marijuana daily with a history of greater than 6 months use. Reviewed this possibility with the patient states he will abstain. Typically 2 to 3 weeks to improved appetite after cessation of marijuana. Patient would benefit from an EGD though I note his platelets are only 25,000. Typically like platelets 40- 50,000. Recheck tomorrow. Potentially could proceed with an EGD if at this failure higher. If remain low and we are proceed with EGD then platelet transfusion will be required. 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 Endorses post-prandial abd pain x 1 year. Is not able to identify what this pain feels like but notes any intake (water/medication/food) results in upper abd pain. There can be associated GERD. No report of nausea/vomiting. He notes all food has an foul taste but attempts to swallow. Suggests w/ swallowing he has both intermittent issues w/ pain and sticking. There is report of 50 lb weight loss in one year, endorses at least 30 lbs of this weight loss was over the last month. No change in BM, suggests he tends towards constipation. No black or bloody stools. Pathology 2019: FINAL DIAGNOSIS ESOPHAGUS, BIOPSY: - MCFARLANE'S ESOPHAGUS - GASTRIC CARDIA-TYPE MUCOSA WITH MILD CHRONIC INFLAMMATION - NEGATIVE FOR DYSPLASIA AND MALIGNANCY EGD 2019: - Esophageal mucosal changes consistent with short-segment Mcfarlane's esophagus. Biopsied. - Small hiatal hernia. - Normal examined duodenum. EGD 2019: - Z-line irregular, 38 cm from the incisors. Biopsied. - Small hiatal hernia. - Gastritis. Biopsied. - Normal examined duodenum. Colonoscopy 2012: diverticulosis, 10 year recall Allergies Allergy/AdvReac Type Severity Reaction Status Date / Time escitalopram [From Lexapro] AdvReac Intermediate BECAME Verified 08/26/25 11:18 MORE DEPRESSED Home Medications Medication Instructions Recorded Confirmed Type nitroglycerin 0.4 mg sublingual 0.4 mg sublingual UD PRN Chest 06/26/24 08/26/25 Rx tablet (Nitrostat) Pain #25 tabs metoprolol succinate 100 mg 100 mg PO BID #180 tabs 01/14/25 08/26/25 Rx tablet,extended release 24 hr amlodipine 10 mg-benazepril 40 mg 1 cap PO QAM #90 caps 03/24/25 08/26/25 Rx capsule baclofen 10 mg tablet 10 mg PO TID PRN MUSCLE SPASMS 06/02/25 08/26/25 History docusate sodium 100 mg capsule 100 mg PO BID #60 caps 06/04/25 08/26/25 Rx omeprazole 20 mg capsule,delayed 20 mg PO DAILY 08/11/25 08/26/25 History release oxycodone 10 mg tablet 10 mg PO .EVERY 4-6 HOURS PRN Pain 08/11/25 08/26/25 History oxycodone 15 mg tablet,crush 15 mg PO Q12 08/11/25 08/26/25 History resistant,extended release 12 hr (OxyContin) pacritinib 100 mg capsule (Vonjo) 200 mg PO BID 08/11/25 08/26/25 History prochlorperazine maleate 10 mg 10 mg PO Q6 PRN Nausea 08/11/25 08/26/25 History tablet clopidogrel 75 mg tablet (Plavix) 75 mg PO DAILY #90 tabs 08/22/25 08/26/25 Rx doxycycline hyclate 100 mg capsule 100 mg PO BID #20 caps 08/22/25 08/26/25 Rx multivitamin with minerals 1 cap PO DAILY 08/22/25 08/26/25 History Patient History Medical History Hyperlipidemia GERD (gastroesophageal reflux disease) Apneic episode Acute heart failure with mildly reduced ejection fraction (HFmrEF, 41-49%) Alcohol use disorder CAD (coronary artery disease) (1998) Cardiac Catheterization revealed 100% RCA occlusion with well developed collaterals with stenosis of obtuse marginal and left circumflex with stent placement. Rectal bleeding Mcfarlane esophagus Hypertension Surgical History History of cataract surgery LEFT History of colonoscopy History of esophagogastroduodenoscopy (EGD) History of AAA (abdominal aortic aneurysm) repair History of surgery LEFT HAND REATTACHED AFTER TRAUMA (30+YEARS AGO). PT HAS SOME NUMBNESS AND TINGLING BUT HAS FULL FUNCTION. History of surgery REPAIR OF DEVIATED SEPTUM History of herniorrhaphy MULTIPLE, INCLUDING UMBILICAL History of cardiac cath ANGIOPLASTY X2, STENT PLACEMENT (20 YEARS AGO) Family History Father Diabetes Myocardial infarction Hypertension Mother Diabetes Hypertension Gall bladder disease Other No family history of adverse response to anesthesia Denies family history of Ovarian cancer Prostate cancer Breast cancer Lung cancer Colorectal cancer Social History Smoking Status: Never smoker Tobacco Type: Cigarettes Age Started Using Tobacco: 13; Age Quit Using Tobacco: 46; packs per day: 1; Second Hand Exposure: No; Do You Dip or Chew Tobacco: No; Hx Alcohol Use: No Hx Substance Use: No Preferred Language: South Korean Communication Ability: Effective Visual Impairment: Limited Hearing Ability: Normal 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 Beliefs That Will Affect Care: None marital status: Current Living Situation: Family current occupational status: retired 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 Physical Exam Respiratory: normal respiratory effort Cardiovascular: Rate/Rhythm: regular rate Gastrointestinal (Abdomen): normal bowel sounds, soft, nontender, no hepatosplenomegaly Skin: no rashes, warm and dry Results & Data Vital Signs (Past 12 Hours) Vital Signs Temp Pulse Resp BP Pulse Ox O2 Del Method 08/26/25 13:33 97 Room Air 08/26/25 12:57 97.7 F 76 18 128/67 100 Room Air PG Care Time/CCT Total # of Minutes Spent Total Time Spent with Patient: Total time spent is greater than 50% in coordination of care (as documented) at patient's floor/unit and/or counseling patient: Coding Level of Care Code None Diagnoses 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
[2025-08-26 14:02] LABS: Alanine Aminotransferase 36 U/L (7-52); Albumin Globulin Ratio 1.3 (0.9-2); Albumin Level 4.2 gm/dl (3.4-5.0); Alkaline Phosphatase 69 U/L (34-104); Anion Gap 10 (3-11); Bilirubin,Total 1.1 mg/dl (0.2-1.0); Blood Urea Nitrogen 14 mg/dl (6-23); Calcium 9.5 mg/dl (8.6-10.3); Carbon Dioxide 27 mmol/L (21-32); Chloride 95 mmol/L (98-107); Globulin 3.2 gm/dl (2.5-4.0); Glucose 107 mg/dl (70-99(Fasting)); Lipase 110 U/L (11-82); Sodium 132 mmol/L (136-145); Total Protein 7.4 gm/dl (6.0-8.3)
[2025-08-26 14:12] LABS: ALC (manual) 3.59 K/uL (1.2-3.4); ANC (manual) 11.13 K/uL (1.4-6.5); Anisocytosis Present; Blast # (manual) 0.54 K/uL (0-0); Polychromasia 1+; Stomatocytes 2+; Tear Drop Cells 1+
--- NOTE | 2025-08-26 14:32 | History & Physical Report ---
Date of Service August 26, 2025 Assessment & Plan (1) Generalized postprandial abdominal pain: (2) Myelofibrosis: (3) CHF (congestive heart failure): (4) COPD (chronic obstructive pulmonary disease): Plan 70-year-old male who has a previous history of abdominal aortic aneurysm repair and severe stenosis of the celiac trunk SMA and RO who presents with postprandial abdominal pain. Patient reportedly has a significant weight loss at home. Patient has intact nutritional parameters. Patient is admitted for endoscopy of the at least upper abdomen as a he has a history of Bailey's esophagitis. Patient is chronically on Vonjo for myelofibrosis has a history of hypertension and COPD. #Postprandial abdominal pain certainly concern for intestinal angina. Patient will be admitted for possible endoscopy. He is placed on IV PPI clear liquid diet n.p.o. after midnight and IV fluids. Patient does have mild elevation of troponin we will recheck a 2-hour troponin and ECG shows a paced rhythm without acute changes his antiplatelet agents are held preprocedure for possible endoscopy is performed I personally had discussion whether colonoscopy prep would be required for this patient and GI said they will take care of it if needed. Despite the vascular concern patient also is a chronic medical marijuana use and is curious whether some of his abdominal pain could be from that #CAD/hypertension patient continues on amlodipine benazepril or pharmacy substitution as well as metoprolol as mentioned Plavix is held #Myelofibrosis. Patient does see palliative care and is on chronic oxy Contin 15 mill equivalents every 12 hours with oxycodone for breakthrough pain. He will have his Vonjo held at the time of admission DVT prevention or SCDs at this time Patient is a full code History of Present Illness Primary Care Provider: Sarika Lin DO 70-year-old male with history of myelofibrosis currently on Vonjo previously on Jakafi. He said about a 1 year history of postprandial abdominal pain he says his pain is in the epigastrium and occurs treating solids or liquids. He has not had any vomiting and does not have any significant change in stool other th an his stools become a little duralumin mechanic. He has a history of Bailey's esophagus but has not any endoscopy for some time. 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 Allergies Allergy/AdvReac Type Severity Reaction Status Date / Time escitalopram [From Lexapro] AdvReac Intermediate BECAME Verified 08/26/25 11:18 MORE DEPRESSED Home Medications Medication Instructions Recorded Confirmed Type nitroglycerin 0.4 mg sublingual 0.4 mg sublingual UD PRN Chest 06/26/24 08/26/25 Rx tablet (Nitrostat) Pain #25 tabs metoprolol succinate 100 mg 100 mg PO BID #180 tabs 01/14/25 08/26/25 Rx tablet,extended release 24 hr amlodipine 10 mg-benazepril 40 mg 1 cap PO QAM #90 caps 03/24/25 08/26/25 Rx capsule baclofen 10 mg tablet 10 mg PO TID PRN MUSCLE SPASMS 06/02/25 08/26/25 History docusate sodium 100 mg capsule 100 mg PO BID #60 caps 06/04/25 08/26/25 Rx omeprazole 20 mg capsule,delayed 20 mg PO DAILY 08/11/25 08/26/25 History release oxycodone 10 mg tablet 10 mg PO .EVERY 4-6 HOURS PRN Pain 08/11/25 08/26/25 History oxycodone 15 mg tablet,crush 15 mg PO Q12 08/11/25 08/26/25 History resistant,extended release 12 hr (OxyContin) pacritinib 100 mg capsule (Vonjo) 200 mg PO BID 08/11/25 08/26/25 History prochlorperazine maleate 10 mg 10 mg PO Q6 PRN Nausea 08/11/25 08/26/25 History tablet clopidogrel 75 mg tablet (Plavix) 75 mg PO DAILY #90 tabs 08/22/25 08/26/25 Rx doxycycline hyclate 100 mg capsule 100 mg PO BID #20 caps 08/22/25 08/26/25 Rx multivitamin with minerals 1 cap PO DAILY 08/22/25 08/26/25 History 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 Left wrist drop Left arm weakness (Acute) Cardiomyopathy Cancer related pain CHF (congestive heart failure) (Acute) Anxiety COPD (chronic obstructive pulmonary disease) Hyponatremia Vitamin D deficiency Hypertension Proteinuria Left renal artery stenosis (Acute) Former smoker (Acute) 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 (Acute) Pacemaker Incisional hernia Sick sinus syndrome (Chronic 2005) Meditronic Dual chamber pacemaker placed 01/02/2006 Abdominal aortic aneurysm S/P REPAIR 12 YEARS PRIOR, [facility] Medical History Hyperlipidemia GERD (gastroesophageal reflux disease) Apneic episode Acute heart failure with mildly reduced ejection fraction (HFmrEF, 41-49%) Alcohol use disorder CAD (coronary artery disease) (1998) Cardiac Catheterization revealed 100% RCA occlusion with well developed collaterals with stenosis of obtuse marginal and left circumflex with stent placement. Rectal bleeding Bailey esophagus Hypertension Surgical History History of cataract surgery LEFT History of colonoscopy History of esophagogastroduodenoscopy (EGD) History of AAA (abdominal aortic aneurysm) repair History of surgery LEFT HAND REATTACHED AFTER TRAUMA (30+YEARS AGO). PT HAS SOME NUMBNESS AND TINGLING BUT HAS FULL FUNCTION. History of surgery REPAIR OF DEVIATED SEPTUM History of herniorrhaphy MULTIPLE, INCLUDING UMBILICAL History of cardiac cath ANGIOPLASTY X2, STENT PLACEMENT (20 YEARS AGO) Family History Father Diabetes Myocardial infarction Hypertension Mother Diabetes Hypertension Gall bladder disease Other No family history of adverse response to anesthesia Denies family history of Ovarian cancer Prostate cancer Breast cancer Lung cancer Colorectal cancer Social History Smoking Status: Never smoker Tobacco Type: Cigarettes Age Started Using Tobacco: 13; Age Quit Using Tobacco: 46; packs per day: 1; Second Hand Exposure: No; Do You Dip or Chew Tobacco: No; Hx Alcohol Use: No Hx Substance Use: No Preferred Language: Somali Communication Ability: Effective Visual Impairment: Limited Hearing Ability: Normal 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 Beliefs That Will Affect Care: None marital status: Current Living Situation: Family current occupational status: retired 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 [employer] (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) How many Children do You have Comment: 1 adult step son Feels Safe at Home: Yes Childhood Exposure to Second-Hand Smoke: No Diet: other Diet Comment: Mediterranean diet caffeine: Yes during the past year weight has: decreased > 10 lbs Dental Care, Regularly: No Physical Activity Frequency: Does not Exercise Seatbelt Use: always Sunscreen Use: No Do you think of yourself as: straight/heterosexual Gender Identity: Male Assistive Devices: None Review of Systems Review of Systems: Mild distress and moderate fatigue no headache, no visual changes no speech or swallowing issues no chest pain, pressure or palpitations no shortness of breath, cough or wheezes Central abdominal pain difficult to describe associated with reliably postprandial affect. Bowel movements have become smaller but light brown in color no dysuria, hematuria or frequency no focal joint pain or swelling no back pain, CVA tenderness or radicular pain no bruising, bleeding or rashes Previously had a mononeuropathy with left wrist drop which is subsequently improved no complaints of anxiety or depression.. Physical Exam Physical Exam: The patient appeared well nourished and normally developed. Vital signs as documented. Head exam is normocephalic atraumatic Neck is without JVD, thyromegaly, or carotid bruits. Lungs are clear to auscultation, no focal loss of breath sounds Cardiac exam, Rhythm is regular.. No murmurs, rubs or gallops. Abdominal exam reveals normal bowel sounds, soft mild epigastric tenderness to examination no abdominal bruits heard Extremities are nonedematous and both pedal pulses are present Neurologic exam is of some weakness of strength of the hyperextension hyperflexion of his left wrist Skin is without bruises or rashes Psychologically is without concerns for anxiety or depression.. Results & Data Results & Data Vital Signs (Past 12 Hours) Vital Signs Temp Pulse Resp BP Pulse Ox O2 Del Method 08/26/25 13:33 97 Room Air 08/26/25 12:57 97.7 F 76 18 128/67 100 Room Air Code Status & VTE Plan VTE Prophylaxis Plan VTE Prophylaxis will be ordered: Yes PG Care Time/CCT Total # of Minutes Spent Total Time Spent with Patient: Total time spent is greater than 50% in coordination of care (as documented) at patient's floor/unit and/or counseling patient: Coding Level of Care Code 96486 INT INP/OBS CARE 375MIN Diagnoses Generalized postprandial abdominal pain R10.84 Myelofibrosis D75.81 CHF (congestive heart failure) I50.9 Heart failure chronicity: acute on chronic Heart failure type: unspecified COPD (chronic obstructive pulmonary disease) J44.9 (3) CHF (congestive heart failure) Heart failure chronicity: acute on chronic Heart failure type: unspecified Qualified Code(s): I50.9 - Heart failure, unspecified
--- NOTE | 2025-08-26 14:47 | XRay Report ---
KUB HISTORY: sent by GI COMPARISON STUDY: 08/01/2025 FINDINGS: There is moderate retained stool. No bowel obstruction seen. No gross free air. Scattered v ascular calcifications again seen. IMPRESSION: No acute findings. ACT 112: Negative or not required by law. The above report was generated using voice recognition software. It may contain grammatical, syntax o r spelling errors. Electronically signed by: Steve Martinez M.D. 08/26/2025 2:45 PM
[2025-08-26 15:35] LABS: Potassium 4.0 mmol/L (3.5-5.1)
[2025-08-26] MEDS ORDERED: BACLOFEN 10 MG TAB PO PRN (15:39)
[2025-08-26] MEDS ORDERED: ONDANSETRON INJ 2 MG/ML 2 ML VIAL IV PRN (15:39)
[2025-08-26] MEDS: LACTATED RINGER'S 1,000 ML IV SCH (15:40)
[2025-08-26 16:35] LABS: INR 1.2 (0.9-1.1); Partial Thromboplastin Time 28 Seconds (21-31); Prothrombin Time 12.1 Seconds (9.0-12.0)
[2025-08-26] MEDS: METOPROLOL SUCC 50MG EXT REL TAB PO SCH (20:30)
[2025-08-26] MEDS: MoRPHine SULFATE 2 MG/ML CARP IV PRN (20:31)
[2025-08-26] MEDS: PANTOprazole 40 MG/10 ML SYR IV SCH (20:31)
[2025-08-27] MEDS: MoRPHine SULFATE 4 MG/ML 1 ML CARP\\VIAL ONE (05:54)
--- NOTE | 2025-08-27 08:40 | Gastroenterology Progress Note ---
Date of Service August 27, 2025 Assessment & Plan (1) 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: Plan: 70 year old male with history of primary myelofibrosis, thrombocytopenia, CHF, anxiety, COPD, HTN, 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 (not on PPI therapy), SSS s/p cardiac pacer, AAA, former tobacco use presenting to ED from GI clinic 1. Inability to tolerate PO intake, post-prandial abd pain, dysphagia - NPO - EGD 08/27/25 pending plt count - Will need plts transfused pending AM labs 2. Weight loss - CTAP w/ IV/PO contrast recommended - Inpatient EGD - Outpatient colonoscopy unless otherwise indicated 3. History of Bailey's - Omeprazole was d/c due to drug interaction w/ plavix - Please start alternate PPI - Pantoprazole 40 mg once daily 4. 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 Please call with any acute changes, questions or concerns. Please see addendum below with additional recommendation from my supervising physician. (2) Weight loss: Admission and Anticipated Discharge Date Admission Date: August 26, 2025 Supervising Physician Co-Signing Physician Notes Patient has bruising over the forearms senile purpura though aggravated by his thrombocytopenia. He received a bag of platelets platelets currently 40,000. This should be acceptable for a diagnostic endoscopy. Would be reluctant to biopsy or remove anything with these counts. If the exam is normal though will be quite helpful in regards to his management. Reviewed with patient understands risks and benefits informed consent was obtained proceed with EGD Subjective Remains NPO. AM labs pending. Frustrated. No abd pain this AM. Review of Systems Review of Systems: All other findings negative except as noted in HPI. Physical Exam Gastrointestinal (Abdomen): normal bowel sounds, soft, nontender, no hepatosplenomegaly Results & Data Results & Data Vital Signs (Past 12 Hours) Vital Signs Temp Pulse Resp BP Pulse Ox O2 Del Method 08/27/25 07:20 Room Air 08/26/25 23:34 98.2 F 71 18 121/75 98 Room Air Laboratory Results 08/26/25 08/26/25 08/26/25 Range/Units 15:41 15:02 13:17 WBC 17.95 H (4.8-10.8) K/ul RBC 3.19 L (4.70-6.10) M/uL Hgb 10.2 L (14.0-18.0) g/dl Hct 34.1 L (42.0-52.0) % MCV 106.9 H (80.0-100.0) fL MCH 32.0 (25.0-34.0) pg MCHC 29.9 L (32.0-36.0) g/dL RDW Std Deviation 90.1 H (36.4-46.3) fL RDW Coeff of Dominique 24.0 H (11.5-14.5) % Plt Count 22 L* (130-400) K/uL Absolute Nucleated RBC 0.63 H (0.00-0.12) K/uL Nucleated RBC % (auto) 3.5 % Neutrophils % (Manual) 62 % Lymphocytes % (Manual) 20 % Monocytes % (Manual) 4 % Basophils % (Manual) 2 % Metamyelocytes % (Man) 1 % Myelocytes % (Man) 3 % Promyelocytes % (Man) 5 % Blast Cells % (Manual) 3 % Neutrophils # (Manual) 11.13 H (1.40-6.50) K/uL Total Absolute Neuts 11.13 H (1.4-6.5) K/uL Lymphocytes # (Manual) 3.59 H (1.2-3.4) K/uL Total Abs Lymphocytes 3.59 H (1.2-3.4) K/uL Monocytes # (Manual) 0.72 H (0.11-0.59) K/uL Basophils # (Manual) 0.36 H (0-0.2) K/uL Metamyelocytes # (Man) 0.18 H (0-0) K/uL Myelocytes # (Manual) 0.54 H (0-0) K/uL Promyelocytes # (Man) 0.90 H (0-0) K/uL Blast Cells # (Man) 0.54 H (0-0) K/uL Polychromasia 1+ Anisocytosis Present Tear Drop Cells 1+ Stomatocytes 2+ PT 12.1 H Cancelled INR 1.2 H Cancelled APTT 28 Cancelled PTT Ratio 1.0 Cancelled Sodium 132 L (136-145) mmol/L Potassium 4.0 TNP Chloride 95 L (98-107) mmol/L Carbon Dioxide 27 (21-32) mmol/L Anion Gap 10 (3-11) BUN 14 (6-23) mg/dl Creatinine 0.65 (0.6-1.4) mg/dl Est Cr Clr Drug Dosing Not Reportable eGFR 100.74 BUN/Creatinine Ratio 21.5 H (10-20) Glucose 107 H (70-99(Fasting)) mg/dl Calcium 9.5 (8.6-10.3) mg/dl Total Bilirubin 1.1 H (0.2-1.0) mg/dl AST 25 TNP ALT 36 (7-52) U/L Alkaline Phosphatase 69 (34-104) U/L Troponin I High Sens 19.2 20.3 H (0-20) pg/ml Total Protein 7.4 (6.0-8.3) gm/dl Albumin 4.2 (3.4-5.0) gm/dl Globulin 3.2 (2.5-4.0) gm/dl Albumin/Globulin Ratio 1.3 (0.9-2) Lipase 110 H (11-82) U/L Urine Color Dark Yellow Urine Appearance Clear (Clear) Urine pH 7.5 (4.5-7.5) Ur Specific Linn 1.021 (1.000-1.030) Urine Protein 2+ H (Negative) Urine Glucose (UA) Negative (Negative) Urine Ketones 2+ H (Negative) Urine Blood Negative (Negative) Urine Nitrite Negative (Negative) Urine Bilirubin 1+ H (Negative) Urine Urobilinogen Negative (Negative) Ur Leukocyte Esterase Trace H (Negative) Urine WBC (Auto) 0-5 (0-5) /hpf Urine RBC (Auto) 0-2 (0-2) /hpf U Hyaline Cast (Auto) 0-2 (0-2) /lpf U Epithel Cells (Auto) 0-2 (0-2) /hpf Urine Bacteria (Auto) None Seen (None Seen) Urine Comment PG Care Time/CCT Total # of Minutes Spent Total Time Spent with Patient: Total time spent is greater than 50% in coordination of care (as documented) at patient's floor/unit and/or counseling patient: Coding Level of Care Code None Diagnoses 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 K22.70 Weight loss R63.4
[2025-08-27] MEDS: ENALAPRIL MALEATE 10 MG TAB PO SCH (09:06)
[2025-08-27 10:32] LABS: Hematocrit (blood only) 30.7 % (42.0-52.0); Hemoglobin 9.1 g/dl (14.0-18.0); Mean Corpuscular Hemoglobin 31.7 pg (25.0-34.0); Mean Corpuscular Volume 107.0 fL (80.0-100.0); Platelet Count 19 K/uL (130-400); RDW Standard Deviation 91.3 fL (36.4-46.3); Red Blood Count 2.87 M/uL (4.70-6.10); White Blood Count 12.90 K/ul (4.8-10.8)
[2025-08-27 10:36] LABS: Anion Gap 7.0 (3-11); Blood Urea Nitrogen 12.0 mg/dl (6-23); Calcium 9.1 mg/dl (8.6-10.3); Carbon Dioxide 28.0 mmol/L (21-32); Chloride 97.0 mmol/L (98-107); Creatinine Clr Calc Pharmacy 125.4 ml/min; Glucose 102.0 mg/dl (70-99(Fasting)); Potassium 3.8 mmol/L (3.5-5.1); Sodium 132.0 mmol/L (136-145)
[2025-08-27] MEDS ORDERED: SODIUM CHLORIDE 0.9% 100 ML IV PRN (10:45)
--- NOTE | 2025-08-27 10:57 | Hospitalist Progress Note ---
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 Patient reportedly has a significant weight loss at home. Patient has intact nutritional parameters. Patient is admitted for endoscopy of the at least upper abdomen as a he has a history of Bailey's esophagitis. Patient is chronically on Vonjo for myelofibrosis has a history of hypertension and COPD. #Abdominal pain w/ ~ 30lb wt loss over past month. Daily marijuana smoker w/ > 6 months of use. KUB negative; CXR negative CTAP 08/01/2025: uncomplicated cholelithiasis. diverticulosis. mild aneurysmal dilatation of abdominal aorta, maximum diameter measures about 36mm Abdominal CTA from 06/01/2025: abdominal aortic aneurysm measuring up to 3.4cm; severe stenoses of celiac axis & SMA; severe stenosis of proximal right renal artery; aneurysmal common iliac arteries; severe stenoses of internal iliac arteries b/l; mild stenosis of left external iliac artery EGD 08/27: esophageal mucosal changes present in distal esophagus consistent w/ long segment Bailey's esophagus. diffuse mild inflammation characterized by erythema, granularity & congestion was found in gastric body & gastric antrum. patchy atrophic mucosa found in the ampulla & 2nd portion of duodenum GI following --> treat w/ chronic PPI for Bailey's and changes found on EGD. Avoid marijuana. Narcotics may be playing role in decreased appetite. Consider vascular consultation for stenoses. consider underlying depressive symptoms. #Postprandial abdominal pain certainly concern for intestinal angina. Patient will be admitted for possible endoscopy. He is placed on IV PPI clear liquid diet n.p.o. after midnight and IV fluids. Patient does have mild elevation of troponin we will recheck a 2-hour troponin and ECG shows a paced rhythm without acute changes his antiplatelet agents are held preprocedure for possible endoscopy is performed I personally had discussion whether colonoscopy prep would be required for this patient and GI said they will take care of it if needed. Despite the vascular concern patient also is a chronic medical marijuana use and is curious whether some of his abdominal pain could be from that #CAD/hypertension patient continues on amlodipine benazepril or pharmacy substitution as well as metoprolol as mentioned Plavix is held #Myelofibrosis. Patient does see palliative care and is on chronic oxy Contin 15 mill equivalents every 12 hours with oxycodone for breakthrough pain. He will have his Vonjo held at the time of admission DVT prevention or SCDs at this time Patient is a full code Admission and Anticipated Discharge Date Admission Date: August 26, 2025 Subjective Clinton was seen & examined this morning with his present. Clinton reports that his pain had been controlled at time of encounter. He was lying flat in bed. He denied any nausea or vomiting. Reports he had not had a platelet transfusion in the past & does follow with Dr. Mendoza outpatient. Physical Exam Physical Exam: General: NAD, VS: BP 137/57; P66; R18; T36.7C Resp: normal respiratory effort, lungs clear to auscultation CV: RRR, no murmur Abd: normal bowel sounds, non tender Extremities: no edema Neuro: A&O x3 Skin: intact, no lesions noted Results & Data Results & Data Vital Signs (Past 12 Hours) Vital Signs Temp Pulse Resp BP Pulse Ox O2 Del Method 08/27/25 08:42 36.4 C L 72 20 125/71 100 Room Air 08/27/25 07:20 Room Air 08/26/25 23:34 36.8 C 71 18 121/75 98 Room Air PG Care Time/CCT Total # of Minutes Spent Total Time Spent with Patient: Total time spent is greater than 50% in coordination of care (as documented) at patient's floor/unit and/or counseling patient: Coding Diagnoses Generalized postprandial abdominal pain R10.84 Myelofibrosis D75.81 CHF (congestive heart failure) I50.9 Heart failure chronicity: acute on chronic Heart failure type: unspecified COPD (chronic obstructive pulmonary disease) J44.9 (3) CHF (congestive heart failure) Heart failure chronicity: acute on chronic Heart failure type: unspecified Qualified Code(s): I50.9 - Heart failure, unspecified
[2025-08-27] MEDS: MoRPHine SULFATE 4 MG/ML 1 ML CARP\\VIAL IV PRN (13:32)
[2025-08-27 15:16] LABS: Platelet Count 40 K/uL (130-400)
[2025-08-27 15:21] VITALS: TEMP 98.1
[2025-08-27] MEDS: SODIUM CHLORIDE 0.9% 500 ML IV SCH (16:24)
--- NOTE | 2025-08-27 16:39 | Anesthesiology Consultation ---
Date of Service August 27, 2025 Assessment & Plan Chart Review Chart Review: Acceptable Risk for Surgery and Patient NOT seen in Pre Admission Testing Consults Requested none ASA ASA3 Proposed Anesthesia Anesthesia Type: MAC Risk / Benefits Reviewed With: PT / POA / Parent / Guardian, Accepts Plan and Informed Consent Obtained History Surgery Operation Date: 08/27/25 17:10 Proposed Procedures p Esophagogastroduodenoscopy Dr. Ilia Morillo MD Height/Weight Height: 5 ft 11 in Weight: 65.408 kg Allergies Allergy/AdvReac Type Severity Reaction Status Date / Time escitalopram [From Lexapro] AdvReac Intermediate BECAME Verified 08/27/25 16:19 MORE DEPRESSED Medications Home Medications Medication Instructions Recorded Confirmed Last Taken nitroglycerin 0.4 mg sublingual 0.4 mg sublingual UD PRN Chest 06/26/24 08/26/25 Unknown tablet (Nitrostat) Pain #25 tabs metoprolol succinate 100 mg 100 mg PO BID #180 tabs 01/14/25 08/26/25 06/02/25 08:00 tablet,extended release 24 hr amlodipine 10 mg-benazepril 40 mg 1 cap PO QAM #90 caps 03/24/25 08/26/25 06/02/25 capsule baclofen 10 mg tablet 10 mg PO TID PRN MUSCLE SPASMS 06/02/25 08/26/25 Unknown docusate sodium 100 mg capsule 100 mg PO BID #60 caps 06/04/25 08/26/25 Unknown omeprazole 20 mg capsule,delayed 20 mg PO DAILY 08/11/25 08/26/25 Unknown release oxycodone 10 mg tablet 10 mg PO .EVERY 4-6 HOURS PRN Pain 08/11/25 08/26/25 Unknown oxycodone 15 mg tablet,crush 15 mg PO Q12 08/11/25 08/26/25 Unknown resistant,extended release 12 hr (OxyContin) pacritinib 100 mg capsule (Vonjo) 200 mg PO BID 08/11/25 08/26/25 Unknown prochlorperazine maleate 10 mg 10 mg PO Q6 PRN Nausea 08/11/25 08/26/25 Unknown tablet clopidogrel 75 mg tablet (Plavix) 75 mg PO DAILY #90 tabs 08/22/25 08/27/25 08/25/25 doxycycline hyclate 100 mg capsule 100 mg PO BID #20 caps 08/22/25 08/26/25 Unknown multivitamin with minerals 1 cap PO DAILY 08/22/25 08/26/25 Unknown Active Medications Generic Name Dose Route Start Last Admin Trade Name Freq PRN Reason Stop Dose Admin Amlodipine Besylate 10 mg 08/27/25 09:00 08/27/25 09:06 Amlodipine Besylate 5 Mg Tab PO 09/26/25 08:59 10 mg QAM LIZBETH Administration Enalapril Maleate 20 mg 08/27/25 09:00 08/27/25 09:06 Enalapril Maleate 10 Mg Tab PO 09/26/25 08:59 20 mg QAM LIZBETH Administration Pantoprazole Sodium 40 mg in 10 mls @ 5 mls/min 08/26/25 21:00 08/27/25 09:06 Protonix IV 09/25/25 20:59 5 mls/min BID LIZBETH Administration Lactated Ringer's 1,000 mls @ 80 mls/hr 08/26/25 15:39 08/27/25 15:55 Lr IV 08/29/25 15:38 0 mls/hr .[id number] LIZBETH Infusion Sodium Chloride 500 mls @ 15 mls/hr 08/27/25 07:30 08/27/25 16:24 Nss IV 08/28/25 07:29 Infused .Q24H LIZBETH Infusion Metoprolol Succinate 100 mg 08/26/25 21:00 08/27/25 09:06 Metoprolol Succ 50mg Ext Rel Tab PO 09/25/25 20:59 100 mg BID LIZBETH Administration Morphine Sulfate 2 mg 08/26/25 15:39 08/27/25 05:15 Morphine Sulfate 2 Mg/Ml Carp IV 09/09/25 15:38 2 mg Q4H PRN Administration Moderate Pain (Scale 4, 5, 6) Morphine Sulfate 4 mg 08/26/25 15:39 08/27/25 13:32 Morphine Sulfate 4 Mg/Ml 1 Ml Carp\Vial IV 09/09/25 15:38 4 mg Q4H PRN Administration Severe Pain (Scale 7, 8, 9,10) Oxycodone HCl 10 mg 08/26/25 15:39 08/26/25 18:08 Oxycodone Hcl Ir 5 Mg Tab (Immediate Release) PO 09/09/25 15:38 10 mg Q6H PRN Administration Pain NPO Date Last Intake of Fluids: 08/27/25 Time Last Intake of Fluids: 08:30 Date Last Intake of Solids: 08/25/25 Time Last Intake of Solids: 18:00 Past Medical History Medical History Hyperlipidemia GERD (gastroesophageal reflux disease) Apneic episode Acute heart failure with mildly reduced ejection fraction (HFmrEF, 41-49%) Alcohol use disorder CAD (coronary artery disease) (1998) Cardiac Catheterization revealed 100% RCA occlusion with well developed collaterals with stenosis of obtuse marginal and left circumflex with stent placement. Rectal bleeding Bailey esophagus Hypertension Exercise / Class Metabolic Activity II 4-5 Yardwork/Stairs/Walk up hill Past Family History Family History Father Diabetes Myocardial infarction Hypertension Mother Diabetes Hypertension Gall bladder disease Other No family history of adverse response to anesthesia Denies family history of Ovarian cancer Prostate cancer Breast cancer Lung cancer Colorectal cancer Past Surgical History Surgical History History of cataract surgery LEFT History of colonoscopy History of esophagogastroduodenoscopy (EGD) History of AAA (abdominal aortic aneurysm) repair History of surgery LEFT HAND REATTACHED AFTER TRAUMA (30+YEARS AGO). PT HAS SOME NUMBNESS AND TINGLING BUT HAS FULL FUNCTION. History of surgery REPAIR OF DEVIATED SEPTUM History of herniorrhaphy MULTIPLE, INCLUDING UMBILICAL History of cardiac cath ANGIOPLASTY X2, STENT PLACEMENT (20 YEARS AGO) Past Anesthesia History No Hx of Anesthesia Complications and No Family Hx of Anesthesia Complications History of PONV No Hx of PONV and No Hx of Motion Sickness Social History Smoking Status: Never smoker tobacco type: cigarettes Do You Dip or Chew Tobacco: No Hx Alcohol Use: No Alcohol type: beer alcohol intake frequency: 0-2 drinks per day Hx Substance Use: No substance use type: marijuana Last Used Substance: Days (ago) Last Used Substance Other:: 5 days ago Review of Systems ROS Unobtainable: All systems reviewed & are unremarkable except as noted in HPI & below Physical Exam Vital Signs Last Vital Signs Temp 36.7 C 08/27/25 15:20 Pulse 73 08/27/25 15:20 Resp 18 08/27/25 15:20 BP 129/65 08/27/25 15:20 Pulse Ox 97 08/27/25 15:20 O2 Del Method Room Air 08/27/25 15:20 ENMT Mouth: no TMJ abnormality Thyromental Distance: > or= 3.5 Finger Breadths Mallampati Class: II Neck normal visual inspection and trachea midline; neck extension not limited Respiratory normal respiratory effort Auscultation: lungs clear to auscultation bilaterally Cardiovascular Rate/Rhythm: regular rate and regular rhythm Heart Sounds: no murmur Musculoskeletal Spine: normal cervical ROM Extremities: full ROM of extremities Neurologic moves all extremities Psychiatric Orientation: alert and oriented x 3 Testing Laboratory Results 08/27/25 14:38 08/27/25 09:42 PT 12.1 Seconds (9.0-12.0) H 08/26/25 15:41 INR 1.2 (0.9-1.1) H 08/26/25 15:41 APTT 28 Seconds (21-31) 08/26/25 15:41 Urine Color Dark Yellow 08/26/25 13:17 Urine Appearance Clear (Clear) 08/26/25 13:17 Urine pH 7.5 (4.5-7.5) 08/26/25 13:17 Ur Specific [place] 1.021 (1.000-1.030) 08/26/25 13:17 Urine Protein 2+ (Negative) H 08/26/25 13:17 Urine Glucose (UA) Negative (Negative) 08/26/25 13:17 Urine Ketones 2+ (Negative) H 08/26/25 13:17 Urine Nitrite Negative (Negative) 08/26/25 13:17 Ur Leukocyte Esterase Trace (Negative) H 08/26/25 13:17 Urine WBC (Auto) 0-5 /hpf (0-5) 08/26/25 13:17 Urine RBC (Auto) 0-2 /hpf (0-2) 08/26/25 13:17 U Hyaline Cast (Auto) 0-2 /lpf (0-2) 08/26/25 13:17 U Epithel Cells (Auto) 0-2 /hpf (0-2) 08/26/25 13:17 Urine Bacteria (Auto) None Seen (None Seen) 08/26/25 13:17 Electrocardiogram Date: 08/26/25 Atrial paced, RBBB Echocardiogram Date: 01/03/25 EF: 40-45 LV Function: dysfunctional (mild hypokinesis) Valvular Disease: + no significant valvular disease
--- NOTE | 2025-08-27 17:22 | Communication Note ---
Date of Service: August 27, 2025 EGD note Long segment Bailey's. No signs of neoplasia. Gastritis and duodenitis. No ulcers. No gastric outlet obstruction. Not sure what role gastritis and duodenitis are playing in his symptoms. Seems reasonable to treat with chronic PPI both for the Bailey's and noted changes. We did not perform biopsies in this gentleman at 40,000 platelets but I doubt it would affect the management at any rate. Suggest that this point management should be PPI therapy. Avoidance of marijuana in regards to decreased appetite. Narcotics may also play a role in decreased appetite. Patient has tight celiac and SMA stenosis. Questionable role for this to be his continued symptoms despite the management as outlined. Consider vascular consultation. His symptoms are more poor appetite poor intake rather than severe epigastric pain with eating. Patient also little tearful today. Should consider potential underlying depressive symptoms also
--- NOTE | 2025-08-27 17:28 | GI REPORT ---
[facility] Patient: GILMA AVILA : 1955 Sex at : Male Age: 70 Years Procedure: Upper GI endoscopy Date: 08/27/2025 Attending Physician: Carlos Alberto Morillo MD Referring MD: Referred Self; Ruben Hidaglo Indications: - Anorexia weight loss Medications: - Monitored Anesthesia Care Complications: - No immediate complications. Estimated Blood Loss: - Estimated blood loss: None. Procedure: - The egd scope was introduced through the mouth and advanced to the second part of the duodenum. - The upper GI endoscopy was accomplished without difficulty. - The patient tolerated the procedure well. Findings: - There were esophageal mucosal changes present in the distal esophagus consistent with long-segment Bailey's esophagus. The maximum longitudinal extent of these mucosal changes was 4 cm in length. No biopsies patient with severe thrombocytopenia - Diffuse mild inflammation characterized by erythema, granularity and congestion (edema) was found in the gastric body and in the gastric antrum. - Patchy atrophic mucosa was found in the ampulla and in the second portion of the duodenum. Impression: - Esophageal mucosal changes consistent with long-segment Bailey's esophagus. - No biopsies patient with severe thrombocytopenia - Gastritis, characterized by erythema, granularity and congestion (edema). - Duodenal mucosal atrophy. - No specimens collected. - Patient does have some esophageal and gastric changes though not to the point to explain 40 pounds weight loss. Consider marijuana hyperemesis anorexia condition from daily marijuana use. Narcotics may also play a role in poor appetite in this age group. He has type celiac and SMA stenosis. Will platelets of 20,000 19,000 may be not a candidate for any sort of intervention. I would recommend avoidance of marijuana PPI for the esophageal and stomach changes. We also want to consider a functional component. Patient tearful today. States he worries and is concerned about his cancer - Initially benefit from a drug such as Remeron to improve sleep which he complains is difficult and appetite Recommendation: Procedure Code(s): - 56737, Esophagogastroduodenoscopy, flexible, transoral; diagnostic, including collection of specimen(s) by brushing or washing, when performed (separate procedure) Diagnosis Code(s): - K29.70, Gastritis, unspecified, without bleeding - K31.89, Other diseases of stomach and duodenum - K22.89, Other specified disease of esophagus CPT(R) - 2023 copyright [employer]. All Rights Reserved. The CPT codes, CCI edits and ICD codes generated are intended as suggestions and were generated based on input data. These codes are preliminary and upon o and m supervisor review may be revised to meet current compliance and payer requirements. The provider is responsible for the final determination of appropriate codes, and modifiers. Carlos Alberto Morillo MD This document has been electronically signed. Note Initiated:08/27/2025 Note Completed:08/27/2025 5:27 PM \\[email or web address]\Central\InterfaceData\Data\Provation\Results\LIVE\[id number]
[2025-08-27 17:39] VITALS: RESP 18
[2025-08-27 17:56] VITALS: BP 130/64; PULSE 67; O2SAT 99
[2025-08-27] MEDS: PROPOFOL IV EMULSION 10 MG/ML 20 ML VIAL IV ONE (18:12)
[2025-08-27] MEDS: LIDOCAINE 2% 2 ML VIAL/AMP(20MG/ML) INFIL ONE (18:12)
[2025-08-27] MEDS: MIDAZOLAM HCL 1 MG/ML 2ML VIAL ONE (18:12)
--- NOTE | 2025-08-27 18:24 | Discharge Summary ---
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 Patient reportedly has a significant weight loss at home. Patient has intact nutritional parameters. Patient is admitted for endoscopy of the at least upper abdomen as a he has a history of Bailey's esophagitis. Patient is chronically on Vonjo for myelofibrosis has a history of hypertension and COPD. #Abdominal pain | Severe protein-calorie malnutrition w/ ~ 30lb wt loss over past month. Daily marijuana smoker w/ > 6 months of use. KUB negative; CXR negative CTAP 08/01/2025: uncomplicated cholelithiasis. diverticulosis. mild aneurysmal dilatation of abdominal aorta, maximum diameter measures about 36mm Abdominal CTA from 06/01/2025: abdominal aortic aneurysm measuring up to 3.4cm; severe stenoses of celiac axis & SMA; severe stenosis of proximal right renal artery; aneurysmal common iliac arteries; severe stenoses of internal iliac arteries b/l; mild stenosis of left external iliac artery EGD 08/27: esophageal mucosal changes present in distal esophagus consistent w/ long segment Bailey's esophagus. diffuse mild inflammation characterized by erythema, granularity & congestion was found in gastric body & gastric antrum. patchy atrophic mucosa found in the ampulla & 2nd portion of duodenum GI following --> treat w/ chronic PPI for Bailey's and changes found on EGD. Avoid marijuana. Narcotics may be playing role in decreased appetite. Consider vascular consultation for stenoses. consider underlying depressive symptoms. Refer to vascular surgery outpatient on dc Educated on marijuana cessation Remeron 7.5mg HS started --> defer to PCP for up-titration of dose. #Myelofibrosis Follows w/ heme/onc & palliative care Continue [facility] plt count low at 19, s/p plt transfusion w/ improvement to 40 (consent form signed prior) hold Plavix until seen by PCP secondary to profound thrombocytopenia Recommend outpatient follow up w/ Dr. Mendoza. Continue to follow w/ Palliative care for chronic pain #CAD/HTN Continue amlodipine - benazepril + metoprolol BP controlled. Patient discharged home, discussed w/ & GI at bedside 08/27. Admission HPI Per Admitting Provider 70-year-old male with history of myelofibrosis currently on Vonjo previously on Jakafi. He said about a 1 year history of postprandial abdominal pain he says his pain is in the epigastrium and occurs treating solids or liquids. He has not had any vomiting and does not have any significant change in stool other than his stools become a little stable cleaner. He has a history of Bailey's esophagus but has not any endoscopy for some time. 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 Discharge Exam General: NAD, VS: BP 130/64; P67; R18; T36.7C Resp: normal respiratory effort, lungs clear to auscultation CV: RRR, no murmur Abd: normal bowel sounds, non tender Extremities: Moves all extremities, no edema Neuro: A&O x3 Skin: intact, no lesions noted Discharge Plan Discharge Items Patient Disposition: Home - Self-Care Reason For Visit: ABDOMINAL PAIN Discharge Diagnosis: Abdominal pain Condition on Discharge: Fair Activity: Resume your previous activity Non-emergency contact: Primary Care Provider and [employer] Call non-emergency contact if: you have any medication questions and your symptoms worsen Follow-up/Referrals: Sarika Lin DO [Primary Care Provider] - Kathy Whitfield CRNP [Nurse Practitioner] - Yogesh Gramajo MD [Physician] - Argelia Mendoza MD [Physician] - Diet: Regular Addtl Attending Provider Instructions: Mr. Rutledge, You were recently hospitalized secondary to abdominal pain and weight loss. You underwent an EGD with the case assembler that did not reveal any concerning findings. You had mild redness in your stomach. Medications: Your medication list has been reviewed and reconciled upon discharge to ensure accuracy and continuity of care. An updated list of all your medications is included with your hospital discharge paperwork. Please review this list cl osely, and make note of any changes. Medications sent on discharge: Pantoprazole: Please take this once daily first thing in the morning. You may stop taking your Omeprazole at this time. Mirtazapine: Please take this prior to bed. You are being prescribed the lowest dose and if it is effective, your family doctor can increase this as they see necessary Please hold your Plavix until you are seen by your PCP because your platelet count is very low Take your medications as instructed; do not skip a dose of your medicines. Make sure all of your doctors know every medicine you are taking (including nass-tuk-demiczw medicines, vitamins, and supplements). Call your primary care provider before taking any new medicines (including over- the-counter medicines, vitamins, and supplements), because some of these may interact with your current medications, or may make your symptoms worse. Tell your primary care provider if you cannot afford your medications. Activity: You can do normal everyday activities as your body allows. Take rest breaks if you feel tired. Do not overexert. Stop activity if you have pain, shortness of breath or feel dizzy. Follow-up appointments: Make an appointment with your primary care physician within one week of discharge. A copy of this summary will be sent to them. Every time you see your primary care physician, or any other doctor, bring your medication list, and a list of questions. Please follow up with gastroenterology on an outpatient basis. Their phone number is above. You are being referred to vascular surgery for evaluation of the plaque build up in your abdominal arteries. Please call their office by next Monday if you do not hear about an appointment date. Please follow up with Dr. Mendoza for your myelofibrosis given you had a low platelet count. CONTACT YOUR PRIMARY CARE PROVIDER if you experience any of the following: Shortness of breath or difficulty breathing Fevers or chills Feeling tired with normal activity or experiencing dizziness or fainting Difficulty following your treatment plan, or difficulty taking medications CALL 911 OR GO TO THE EMERGENCY DEPARTMENT if you experience any of the following: Severe abdominal pain or nausea/vomiting Severe chest pain, or chest pain that radiates (moves) to your jaw or arm Sudden, severe shortness of breath or difficulty breathing Thank you for allowing us to participate in your care. Pending Studies at Discharge: No Stand-Alone Forms: My [employer], Smoking Cessation Medications and DC Order Prescriptions: New pantoprazole 40 mg tablet,delayed release (DR/EC) 40 mg PO DAILY Qty: 30 0RF mirtazapine 7.5 mg tablet 7.5 mg PO HS Qty: 30 0RF Continued metoprolol succinate 100 mg tablet extended release 24 hr 100 mg PO BID Qty: 180 3RF amlodipine-benazepril 10-40 mg capsule 1 cap PO QAM Qty: 90 3RF multivitamin with minerals Capsule 1 cap PO DAILY doxycycline hyclate 100 mg capsule 100 mg PO BID Qty: 20 2RF nitroglycerin [Nitrostat] 0.4 mg tablet, sublingual 0.4 mg Sublingual UD PRN (Reason: Chest Pain) Qty: 25 3RF oxycodone 10 mg tablet 10 mg PO .EVERY 4-6 HOURS PRN (Reason: Pain) prochlorperazine maleate 10 mg tablet 10 mg PO Q6 PRN (Reason: Nausea) oxycodone [OxyContin] 15 mg tablet,oral only,ext.rel.12 hr 15 mg PO Q12 Rx Instructions: ORDERED FOR 10 DAYS on 08/01/25 Vonjo 100 mg capsule 200 mg PO BID baclofen 10 mg tablet 10 mg PO TID PRN (Reason: MUSCLE SPASMS) docusate sodium 100 mg Capsule 100 mg PO BID Qty: 60 0RF Held clopidogrel [Plavix] 75 mg tablet 75 mg PO DAILY Qty: 90 3RF Hold Instructions: Resume on 09/06/25. until seen by PCP Discontinued omeprazole 20 mg capsule,delayed release(DR/EC) 20 mg PO DAILY Hold Instructions: Resume on 08/12/25. Hold until told to resume by PCP Discharge Orders: Discharge Order (Routine); Ordered 08/27/25 Ordered By: Nupur Salinas/Other Patient Handouts: Thrombocytopenia Admission Data Admit Date/Time: 08/26/25 13:44 Attending Provider: Ruben Hidalgo Admit Provider: Vj Lin Primary Care Provider: Sarika Lin Other Providers: Vj Lin; Kathy Whitfield Other Interventions: Discharge Summary Assessment (RN) Last Done: 08/27/25 18:21 Hospital Stay Data Consultations 08/26/25 13:28 ED Decision to Admit Stat 10/14/25 15:39 Consult Gastroenterology Routine Procedures Performed Operation Date: 08/27/25 17:10 Actual Procedures p Esophagogastroduodenoscopy - Carlos Alberto Morillo MD Pending Results Patient Have Any Pending Studies at Discharge: No Discharge Instructions Given to Patient (Per Discharging Provider) Mr. Rutledge, Mitchell were recently hospitalized secondary to abdominal pain and weight loss. You underwent an EGD with the case assembler that did not reveal any concerning findings. You had mild redness in your stomach. Medications: Your medication list has been reviewed and reconciled upon discharge to ensure accuracy and continuity of care. An updated list of all your medications is included with your hospital discharge paperwork. Please review this list closely, and make note of any changes. Medications sent on discharge: Pantoprazole: Please take this once daily first thing in the morning. You may stop taking your Omeprazole at this time. Mirtazapine: Please take this prior to bed. You are being prescribed the lowest dose and if it is effective, your family doctor can increase this as they see necessary Please hold your Plavix until you are seen by your PCP because your platelet count is very low Take your medications as instructed; do not skip a dose of your medicines. Make sure all of your doctors know every medicine you are taking (including monu-eyy-tpneocq medicines, vitamins, and supplements). Call your primary care provider before taking any new medicines (including over- the-counter medicines, vitamins, and supplements), because some of these may interact with your current medications, or may make your symptoms worse. Tell your primary care provider if you cannot afford your medications. Activity: You can do normal everyday activities as your body allows. Take rest breaks if you feel tired. Do not overexert. Stop activity if you have pain, shortness of breath or feel dizzy. Follow-up appointments: Make an appointment with your primary care physician within one week of discharge. A copy of this summary will be sent to them. Every time you see your primary care physician, or any other doctor, bring your medication list, and a list of questions. Please follow up with gastroenterology on an outpatient basis. Their phone number is above. You are being referred to vascular surgery for evaluation of the plaque build up in your abdominal arteries. Please call their office by next Monday if you do not hear about an appointment date. Please follow up with Dr. Mendoza for your myelofibrosis given you had a low platelet count. CONTACT YOUR PRIMARY CARE PROVIDER if you experience any of the following: Shortness of breath or difficulty breathing Fevers or chills Feeling tired with normal activity or experiencing dizziness or fainting Difficulty following your treatment plan, or difficulty taking medications CALL 911 OR GO TO THE EMERGENCY DEPARTMENT if you experience any of the following: Severe abdominal pain or nausea/vomiting Severe chest pain, or chest pain that radiates (moves) to your jaw or arm Sudden, severe shortness of breath or difficulty breathing Thank you for allowing us to participate in your care. Supervising Physician Co-Signing Physician Notes The patient was not seen by me. The chart was reviewed. Case discussed with OMAR Martines. Agree with assessment and plan Total Time Total Time Spent Total Time Spent (In Minutes): 55 Total Time Includes: Examination of the Patient, Discharge Planning, Medication Reconciliation and Communication With Other Providers Coding Level of Care Code 70710 INP/OBS DISCH >30 MIN Diagnoses Epigastric abdominal pain R10.13 Weight loss R63.4 Thrombocytopenia D69.6 Myelofibrosis D75.81"
--- NOTE | 2025-08-27 18:30 | Anesthesiology Progress Note ---
Date of Service August 27, 2025 Anesthesia Post Procedure Vital Signs Vital Signs: Temp Pulse Pulse Resp BP BP Pulse Ox 08/27/25 17:54 67 18 130/64 99 08/27/25 17:38 66 18 137/57 L 98 08/27/25 17:23 72 16 109/60 100 08/27/25 15:20 36.7 C 73 18 129/65 97 08/27/25 13:26 36.6 C 69 16 145/77 H 100 08/27/25 12:58 36.7 C 73 16 126/70 100 08/27/25 12:28 36.6 C 76 16 132/77 97 08/27/25 12:13 36.6 C 67 16 137/69 96 08/27/25 11:46 36.4 C L 77 16 145/66 H 97 08/27/25 08:42 36.4 C L 72 20 125/71 100 08/27/25 07:20 08/26/25 23:34 36.8 C 71 18 121/75 98 08/26/25 20:15 O2 Del Method 08/27/25 17:54 Room Air 08/27/25 17:38 Room Air 08/27/25 17:23 Room Air 08/27/25 15:20 Room Air 08/27/25 13:26 08/27/25 12:58 08/27/25 12:28 08/27/25 12:13 08/27/25 11:46 08/27/25 08:42 Room Air 08/27/25 07:20 Room Air 08/26/25 23:34 Room Air 08/26/25 20:15 Room Air Pain Intensity Abdomen: Pain Intensity: 5 Back: Pain Intensity: 5 Transfer of Care Handoff Completed per policy Notes Mental Status: alert / awake / arousable Patient Amnestic to Procedure: Yes Nausea / Vomiting: adequately controlled Pain: adequately controlled Airway Patency, RR, SpO2: stable & adequate BP & HR: stable & adequate Hydration State: stable & adequate Anesthetic Complications: no major complications apparent and Pt Satisfied with anesthetic care
--- NOTE | 2025-09-01 06:38 | Electrocardiogram Report ---
Test Reason : Blood Pressure : */* mmHG Vent. Rate : 72 BPM Atrial Rate : 72 BPM P-R Int : 156 ms QRS Dur : 122 ms QT Int : 442 ms P-R-T Axes : 86 -77 46 degrees QTcB Int : 483 ms Atrial-paced rhythm Left axis deviation Right bundle branch block Minimal voltage criteria for LVH, may be normal variant ( R in aVL ) Abnormal ECG When compared with ECG of 11-Aug-2025 15:24, No significant change was found Confirmed by Jurgen Sol ([id number]) on 09/01/2025 6:38:00 AM Referred By: Confirmed By: Jurgen Sol
== END 2025-08-27 18:45 | disposition home or self-care (01) ==
LOC: SUATTDRO → ED 12:50 → SUATTDRO 13:44 → INTOOBSV 13:44 → 3N 13:44